=== PATIENT | male | born 1955 | race Caucasian/White ===

== ENCOUNTER 2020-02-03 15:13 | Inpatient (IN) ==
[2020-02-03] MEDS ORDERED: SODIUM CHLORIDE 0.9% 500 ML IV SCH (15:30)
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
[2020-02-03 15:57] LABS: Basophils # (auto) 0.01 K/uL (0-0.2); Basophils % (auto) 0.1 %; Eosinophils # (auto) 0.04 K/uL (0-0.5); Eosinophils % (auto) 0.4 %; Hematocrit (blood only) 44.5 % (42-52); Hemoglobin 16.1 g/dL (14.0-18.0); Immature Granulocytes # (auto) 0.01 K/uL (0.00-0.02); Immature Granulocytes % (auto) 0.1 %; Lymphocytes # (auto) 1.02 K/uL (1.2-3.4); Lymphocytes % (auto) 11.1 %; Mean Corpuscular Hemoglobin 34.8 pg (25-34); Mean Corpuscular Hgb Conc 36.2 g/dL (32-36); Mean Corpuscular Volume 96.1 fL (80-100); Mean Platelet Volume 9.7 fL (7.4-10.4); Monocytes # (auto) 0.79 K/uL (0.11-0.59); Monocytes % (auto) 8.6 %; Neutrophils # (auto) 7.28 K/uL (1.4-6.5); Neutrophils % (auto) 79.7 %; Platelet Count 110 K/uL (130-400); RDW Coefficient of Variation 12.8 % (11.5-14.5); RDW Standard Deviation 44.8 fL (36.4-46.3); Red Blood Count 4.63 M/uL (4.7-6.1); White Blood Count 9.15 K/uL (4.8-10.8)
--- NOTE | 2020-02-03 15:59 | XRay Report ---
XR chest 1V portable CLINICAL HISTORY: weakness COMPARISON STUDY: Chest radiograph October 15, 2014. FINDINGS: Lung volumes are mildly diminished. There is no pneumothorax or pleural effusion. There is no consolidation or evidence for pulmonary edema. Cardiac size is likely within normal limits, accent uated on this hypoventilatory study. IMPRESSION: No acute cardiopulmonary findings. ACT 112: Negative or not required by law. Electronically signed by: Tha Moore M.D. 02/03/2020 3:58 PM
[2020-02-03 16:18] LABS: Albumin Level 3.5 gm/dl (3.4-5.0); Creatinine Clr Calc Pharmacy 121.2 ml/min; Est GFR (Non-African American) 91.4; Magnesium 2.2 mg/dl (1.8-2.4); Potassium 3.7 mmol/L (3.5-5.1)
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
[2020-02-03 16:47] LABS: Globulin 3.4 gm/dl (2.5-4.0); Thyroid Stimulating Hormone 1.49 uIu/ml (0.300-4.500); Total Protein 6.9 gm/dl (6.4-8.2); Troponin I 0.182 ng/ml (0-0.045)
[2020-02-03 17:11] LABS: Appearance Urine Clear (Clear); Bacteria Urine Automated Negative (Negative); Bilirubin Urine Negative (Negative); Blood Urine 2+ (Negative); Cast Urine Automated 0 /lpf (0-5); Color Urine Dark Yellow; Epithelial Cell Urine Auto 0-5 /lpf (0-5); Glucose Urine UA 1+ (Negative); Ketones Urine Trace (Negative); Leukocyte Esterase Urine Negative (Negative); Nitrite Urine Negative (Negative); Protein Urine Negative (Negative); Specific Gravity Urine 1.011 (1.000-1.030); Urobilinogen Urine Negative (Negative)
[2020-02-03] MEDS ORDERED: cefTRIAXone SODIUM 2,000 MG/70 ML BAG IV STA (17:19)
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
[2020-02-03 18:57] LABS: Amphetamines+Metham, Urine Neg (Neg); Barbiturates, Urine Neg (Neg); Benzodiazepine, Urine Neg (Neg); Cocaine, Urine Neg (Neg); MDMA (Ecstacy), Urine Neg (Neg); Methadone, Urine Neg (Neg); Opiate, Urine Neg (Neg); Phencyclidine, Urine Neg (Neg)
[2020-02-03] MEDS ORDERED: SODIUM CHLORIDE 0.9% 1000ML 1,000 ML IV SCH (21:30)
[2020-02-03] MEDS ORDERED: ONDANSETRON INJ 2 MG/ML 2 ML VIAL IV PRN (21:30)
[2020-02-03] MEDS ORDERED: MAGNESIUM HYDROXIDE SUSP 30 ML UDC PO PRN (21:30)
[2020-02-03] MEDS ORDERED: POLYETHYLENE (MIRALAX) 17 GM PACK PO PRN (21:30)
[2020-02-03] MEDS ORDERED: ALUMINUM/MAGNESIUM SUSP 30 ML UDC PO PRN (21:30)
[2020-02-03] MEDS ORDERED: AMPICILLIN/SULBACTAM SOD 3,000 MG in 0.9 % SODIUM CHLORIDE 100 ML IV STA (21:33)
[2020-02-03] MEDS: CHLORHEXIDINE GLUCONATE 0.12% 480 ML MT SCH (23:46)
[2020-02-03] MEDS: LATANOPROST 0.005% OP SOLN 2.5 ML BTL OPB SCH (23:47)
[2020-02-04 04:05] LABS: Basophils # (auto) 0.02 K/uL (0-0.2); Basophils % (auto) 0.3 %; Eosinophils # (auto) 0.05 K/uL (0-0.5); Eosinophils % (auto) 0.8 %; Hematocrit (blood only) 41.5 % (42-52); Hemoglobin 14.8 g/dL (14.0-18.0); Immature Granulocytes # (auto) 0.01 K/uL (0.00-0.02); Immature Granulocytes % (auto) 0.2 %; Lymphocytes # (auto) 0.99 K/uL (1.2-3.4); Lymphocytes % (auto) 15.3 %; Mean Corpuscular Hemoglobin 34.7 pg (25-34); Mean Corpuscular Hgb Conc 35.7 g/dL (32-36); Mean Corpuscular Volume 97.4 fL (80-100); Mean Platelet Volume 9.7 fL (7.4-10.4); Monocytes # (auto) 0.57 K/uL (0.11-0.59); Monocytes % (auto) 8.8 %; Neutrophils # (auto) 4.82 K/uL (1.4-6.5); Neutrophils % (auto) 74.6 %; Platelet Count 118 K/uL (130-400); RDW Coefficient of Variation 12.9 % (11.5-14.5); RDW Standard Deviation 45.9 fL (36.4-46.3); Red Blood Count 4.26 M/uL (4.7-6.1); White Blood Count 6.46 K/uL (4.8-10.8)
[2020-02-04 04:24] LABS: Albumin Level 3.2 gm/dl (3.4-5.0); BUN Creatinine Ratio 12.6 (10-20); Calcium 8.1 mg/dl (8.5-10.1); Creatinine Clr Calc Pharmacy 147.1 ml/min; Est GFR (African American) 114.8; Potassium 3.5 mmol/L (3.5-5.1)
[2020-02-04 04:32] LABS: Bilirubin,Total 1.3 mg/dl (0.2-1); Globulin 3.2 gm/dl (2.5-4.0); Total Protein 6.4 gm/dl (6.4-8.2); Troponin I 0.075 ng/ml (0-0.045)
[2020-02-04 06:03] LABS: Estimated Average Glucose 146 mg/dl; Hemoglobin A1C 6.7 % (4.5-5.6)
--- NOTE | 2020-02-04 07:31 | Ultrasound Report ---
ULTRASOUND OF THE CAROTID ARTERIES CLINICAL HISTORY: Syncope. COMPARISON STUDY: No priors. TECHNIQUE: Real-time, grayscale, and color Doppler sonography of the carotid arteries is performed. I mages are reviewed in the transverse and longitudinal planes. FINDINGS: Blood pressures were not assessed due to the presence of IV catheters. The carotid arteries are patent bilaterally and demonstrate antegrade flow. There is no significant a therosclerotic plaque identified. Normal doppler arterial waveforms are seen throughout. Velocity alee surements are listed below. Common carotid peak systolic velocity (cm/sec): RIGHT: 64 LEFT: 66 ICA proximal peak systolic velocity (cm/sec): RIGHT: 43 LEFT: 69 ICA mid peak systolic velocity (cm/sec): RIGHT: 55 LEFT: 74 ICA distal peak systolic velocity (cm/sec): RIGHT: 48 LEFT: 74 ICA/CC peak systolic ratio: RIGHT: 0.9 LEFT: 1.1 Antegrade flow was shown in the vertebral arteries. The external carotid arteries are patent. There are prominent cervical lymph nodes seen bilaterally. The largest is on the left and measures 3. 1 x 1.0 x 1.3 cm. IMPRESSION: 1. There is no sonographic evidence of hemodynamically significant stenosis in the right or left rodriges tid arterial system. 2. Antegrade flow is shown in the vertebral arteries. 3. Prominent cervical lymph nodes are pathologically indeterminant. Clinical correlation will be esse ntial. ACT 112: Negative or not required by law. Electronically signed by: Baldomero Shannon M.D. 02/04/2020 7:29 AM
[2020-02-04] MEDS: CHLORHEXIDINE GLUCONATE 0.12% 480 ML MT SCH ×2 (09:24→20:11)
[2020-02-04] MEDS: DORZOLAMIDE/TIMOLOL 22.3/6.8MG/ML 10 ML BTL OPB SCH (09:25)
--- NOTE | 2020-02-04 12:05 | Electrocardiogram Report ---
Test Reason : Blood Pressure : / mmHG Vent. Rate : 098 BPM Atrial Rate : 098 BPM P-R Int : 150 ms QRS Dur : 070 ms QT Int : 294 ms P-R-T Axes : 024 043 089 degrees QTc Int : 375 ms Normal sinus rhythm Nonspecific T wave abnormality Abnormal ECG When compared with ECG of 20-MAY-2018 15:59, Vent. rate has increased BY 32 BPM Nonspecific T wave abnormality now evident in Anterolateral leads Confirmed by Jett Iqbal ([id number]) on 02/04/2020 12:04:24 PM Referred By: REFERRED SELF Confirmed By:Jett Iqbal
--- NOTE | 2020-02-04 12:40 | Electrocardiogram Report ---
Test Reason : Blood Pressure : / mmHG Vent. Rate : 077 BPM Atrial Rate : 077 BPM P-R Int : 160 ms QRS Dur : 076 ms QT Int : 406 ms P-R-T Axes : 045 064 078 degrees QTc Int : 459 ms Normal sinus rhythm Nonspecific ST and T wave abnormality Abnormal ECG When compared with ECG of 03-FEB-2020 15:38, (unconfirmed) Nonspecific T wave abnormality, improved in Anterolateral leads QT has lengthened Confirmed by Jett Iqbal ([id number]) on 02/04/2020 12:39:58 PM Referred By: REFERRED SELF Confirmed By:Jett Iqbal
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
[2020-02-04] MEDS: AMPICILLIN/SULBACTAM SOD 3,000 MG in 0.9 % SODIUM CHLORIDE 100 ML IV SCH ×2 (17:00→21:09)
[2020-02-04] MEDS ORDERED: LOPERAMIDE HCL 2 MG CAP PO PRN (17:54)
[2020-02-04] MEDS: LATANOPROST 0.005% OP SOLN 2.5 ML BTL OPB SCH (20:12)
[2020-02-04] MEDS: ACETAMINOPHEN 325 MG TAB PO PRN (21:13)
[2020-02-05] MEDS: AMPICILLIN/SULBACTAM SOD 3,000 MG in 0.9 % SODIUM CHLORIDE 100 ML IV SCH ×3 (03:20→15:24)
--- NOTE | 2020-02-05 07:33 | Ultrasound Report ---
ULTRASOUND RIGHT UPPER QUADRANT ABDOMEN CLINICAL HISTORY: Elevated hepatic transaminases. COMPARISON STUDY: Abdominal radiographs dated 10/15/2014. TECHNIQUE: Real-time, grayscale, and color flow sonography of the right upper quadrant of the abdomen was performed. Images are reviewed in the transverse and longitudinal planes. FINDINGS: Liver: The liver is enlarged and demonstrates heterogeneously increased echotexture consistent with h epatic steatosis. Note that this degrades acoustic penetration of the liver. There is no intrahepatic biliary ductal dilatation. The main portal vein is patent. Gallbladder: The gallbladder is normal in appearance. No gallstones are identified. There is no gallb ladder wall thickening or pericholecystic fluid. A sonographic Antoino's sign is reportedly absent. Th e common bile duct measures up to 0.4 cm in diameter. Pancreas: Visualized portions of the pancreatic head and body are normal in appearance. Right kidney: Survey images of the right kidney demonstrate normal size and echotexture. There is no hydronephrosis. Ascites: None. IMPRESSION: 1. No acute sonographic abnormality is identified in the right upper quadrant. 2. Hepatomegaly and hepatic steatosis. 3. No shadowing gallstones are identified. ACT 112: Negative or not required by law. Electronically signed by: Baldomero Shannon M.D. 02/05/2020 7:32 AM
[2020-02-05 08:43] LABS: Albumin Level 3.2 gm/dl (3.4-5.0); Bilirubin Direct 0.2 mg/dl (0-0.2); Bilirubin,Total 0.8 mg/dl (0.2-1); Total Protein 6.2 gm/dl (6.4-8.2)
[2020-02-05] MEDS: CHLORHEXIDINE GLUCONATE 0.12% 480 ML MT SCH ×2 (08:49→21:05)
[2020-02-05] MEDS: DORZOLAMIDE/TIMOLOL 22.3/6.8MG/ML 10 ML BTL OPB SCH (08:50)
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
[2020-02-05] MEDS: LACTOBACILLUS ACIDOPHILUS (FLORANEX) TAB PO SCH (21:05)
[2020-02-05] MEDS: LATANOPROST 0.005% OP SOLN 2.5 ML BTL OPB SCH (21:06)
[2020-02-05] MEDS: AMOXICILLIN/CLAVULANATE 875 MG TAB PO SCH (21:07)
--- NOTE | 2020-02-05 22:53 | Electrocardiogram Report ---
Test Reason : Blood Pressure : / mmHG Vent. Rate : 075 BPM Atrial Rate : 075 BPM P-R Int : 162 ms QRS Dur : 078 ms QT Int : 416 ms P-R-T Axes : 040 067 058 degrees QTc Int : 464 ms Normal sinus rhythm Normal ECG When compared with ECG of 04-FEB-2020 06:36, No significant change was found Confirmed by Oscar Anthony ([id number]) on 02/05/2020 10:52:53 PM Referred By: REFERRED SELF Confirmed By:Oscar Anthony
[2020-02-05] MEDS: ALBUT/IPRATROP 3MG/0.5MG NEB 3 ML VIAL NEB PRN (23:40)
[2020-02-06] MEDS: AMOXICILLIN/CLAVULANATE 875 MG TAB PO SCH ×2 (07:52→17:39)
[2020-02-06] MEDS: LACTOBACILLUS ACIDOPHILUS (FLORANEX) TAB PO SCH ×4 (07:52→21:35)
[2020-02-06] MEDS: DORZOLAMIDE/TIMOLOL 22.3/6.8MG/ML 10 ML BTL OPB SCH (07:53)
[2020-02-06] MEDS: CHLORHEXIDINE GLUCONATE 0.12% 480 ML MT SCH ×2 (07:53→21:35)
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
[2020-02-06] MEDS: LATANOPROST 0.005% OP SOLN 2.5 ML BTL OPB SCH (21:35)
--- NOTE | 2020-02-06 23:08 | XRay Report ---
LEFT KNEE 3 VIEWS CLINICAL HISTORY: Left knee pain. FINDINGS: AP, crosstable lateral, and sunrise views of the left knee are compared to study dated 05/16. The skeletal structures are osteopenic. No fracture is seen. There is moderate degenerative na rrowing at the patellofemoral articulation. Mild degenerative narrowing is seen in the medial compart ment. There are patellar enthesophytes, marginal osteophytes, degenerative beaking of the tibial spin e. There is a small joint effusion. Large calcific densities anterior to the distal femur could repre sent joint bodies or could be related to the quadriceps tendon. Soft tissue edema is present around t he knee. IMPRESSION: 1. Soft tissue swelling and small joint effusion with no acute osseous abnormality identified. 2. Osteopenia and degenerative change as above. 3. Ossific densities anterior to the distal femur could represent calcified joint bodies or could be related to the quadriceps tendon. These are new from the 05/16/2018 examination and clinical correlati on will be essential. Electronically signed by: Baldomero Shannon M.D. 02/06/2020 11:06 PM
[2020-02-07] MEDS: DORZOLAMIDE/TIMOLOL 22.3/6.8MG/ML 10 ML BTL OPB SCH (08:06)
[2020-02-07] MEDS: LACTOBACILLUS ACIDOPHILUS (FLORANEX) TAB PO SCH ×4 (08:07→21:04)
[2020-02-07] MEDS: CHLORHEXIDINE GLUCONATE 0.12% 480 ML MT SCH ×2 (08:07→21:06)
[2020-02-07] MEDS: AMOXICILLIN/CLAVULANATE 875 MG TAB PO SCH ×2 (08:07→17:13)
[2020-02-07] MEDS: ALBUT/IPRATROP 3MG/0.5MG NEB 3 ML VIAL NEB PRN (09:26)
[2020-02-07] MEDS: ACETAMINOPHEN 325 MG TAB PO PRN (15:31)
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
[2020-02-07] MEDS: LATANOPROST 0.005% OP SOLN 2.5 ML BTL OPB SCH (21:06)
[2020-02-08] MEDS: LACTOBACILLUS ACIDOPHILUS (FLORANEX) TAB PO SCH ×4 (07:50→20:15)
[2020-02-08] MEDS: AMOXICILLIN/CLAVULANATE 875 MG TAB PO SCH ×2 (07:51→16:31)
[2020-02-08] MEDS: DORZOLAMIDE/TIMOLOL 22.3/6.8MG/ML 10 ML BTL OPB SCH (07:51)
[2020-02-08] MEDS: CHLORHEXIDINE GLUCONATE 0.12% 480 ML MT SCH ×2 (07:51→20:15)
[2020-02-08 08:31] LABS: Albumin Level 3.4 gm/dl (3.4-5.0); Bilirubin,Total 0.7 mg/dl (0.2-1); Total Protein 6.8 gm/dl (6.4-8.2)
[2020-02-08 09:06] LABS: Bilirubin Direct 0.2 mg/dl (0-0.2)
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
[2020-02-08] MEDS: LATANOPROST 0.005% OP SOLN 2.5 ML BTL OPB SCH (20:16)
[2020-02-09] MEDS: AMOXICILLIN/CLAVULANATE 875 MG TAB PO SCH ×2 (07:52→16:04)
[2020-02-09] MEDS: LACTOBACILLUS ACIDOPHILUS (FLORANEX) TAB PO SCH ×4 (07:52→20:44)
[2020-02-09] MEDS: DORZOLAMIDE/TIMOLOL 22.3/6.8MG/ML 10 ML BTL OPB SCH (07:53)
[2020-02-09] MEDS: CHLORHEXIDINE GLUCONATE 0.12% 480 ML MT SCH ×2 (07:53→20:44)
[2020-02-09] MEDS: ACETAMINOPHEN 325 MG TAB PO PRN (11:48)
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
[2020-02-09] MEDS: LATANOPROST 0.005% OP SOLN 2.5 ML BTL OPB SCH (20:43)
[2020-02-10] MEDS: LACTOBACILLUS ACIDOPHILUS (FLORANEX) TAB PO SCH ×4 (08:03→20:26)
[2020-02-10] MEDS: DORZOLAMIDE/TIMOLOL 22.3/6.8MG/ML 10 ML BTL OPB SCH (08:03)
[2020-02-10] MEDS: AMOXICILLIN/CLAVULANATE 875 MG TAB PO SCH ×2 (08:03→16:50)
[2020-02-10] MEDS: CHLORHEXIDINE GLUCONATE 0.12% 480 ML MT SCH ×2 (08:04→20:28)
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
[2020-02-10] MEDS: LATANOPROST 0.005% OP SOLN 2.5 ML BTL OPB SCH (20:27)
[2020-02-11] MEDS: LACTOBACILLUS ACIDOPHILUS (FLORANEX) TAB PO SCH ×4 (07:36→20:16)
[2020-02-11] MEDS: AMOXICILLIN/CLAVULANATE 875 MG TAB PO SCH ×2 (07:36→16:41)
[2020-02-11] MEDS: DORZOLAMIDE/TIMOLOL 22.3/6.8MG/ML 10 ML BTL OPB SCH (07:37)
[2020-02-11] MEDS: CHLORHEXIDINE GLUCONATE 0.12% 480 ML MT SCH ×2 (07:37→20:16)
[2020-02-11 11:57] LABS: D Dimer 310 ug/L FEU (0-500)
--- NOTE | 2020-02-11 11:58 | XRay Report ---
XR chest 2V PA/lateral CLINICAL HISTORY: Shortness of breath COMPARISON STUDY: 02/03/2020 FINDINGS: The cardiac and mediastinal contours remain stable. There is no lobar consolidation. There is no failure. Left basilar opacities while nonspecific are likely atelectatic[there are no significa nt pleural effusions IMPRESSION: 1. No evidence of failure 2. No evidence of lobar consolidation 3. Increased markings at the left lung base while nonspecific are likely atelectatic ACT 112: Negative or not required by law. Electronically signed by: Bautista Tompkins M.D. 02/11/2020 11:57 AM
[2020-02-11 12:10] LABS: BUN Creatinine Ratio 12.9 (10-20); Calcium 9.3 mg/dl (8.5-10.1); Creatinine Clr Calc Pharmacy 116.1 ml/min; Est GFR (Non-African American) 90.6; Potassium 4.1 mmol/L (3.5-5.1)
[2020-02-11 12:13] LABS: Basophils # (auto) 0.02 K/uL (0-0.2); Basophils % (auto) 0.3 %; Eosinophils # (auto) 0.13 K/uL (0-0.5); Eosinophils % (auto) 2.2 %; Hematocrit (blood only) 46.9 % (42-52); Hemoglobin 16.4 g/dL (14.0-18.0); Immature Granulocytes # (auto) 0.02 K/uL (0.00-0.02); Immature Granulocytes % (auto) 0.3 %; Lymphocytes # (auto) 1.15 K/uL (1.2-3.4); Lymphocytes % (auto) 19.6 %; Mean Corpuscular Hemoglobin 33.8 pg (25-34); Mean Corpuscular Volume 96.7 fL (80-100); Mean Platelet Volume 8.9 fL (7.4-10.4); Monocytes # (auto) 0.45 K/uL (0.11-0.59); Monocytes % (auto) 7.7 %; Neutrophils % (auto) 69.9 %; Platelet Count 218 K/uL (130-400); RDW Coefficient of Variation 12.7 % (11.5-14.5); RDW Standard Deviation 44.7 fL (36.4-46.3); Red Blood Count 4.85 M/uL (4.7-6.1); White Blood Count 5.87 K/uL (4.8-10.8)
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
[2020-02-11] MEDS: LATANOPROST 0.005% OP SOLN 2.5 ML BTL OPB SCH (20:16)
[2020-02-12] MEDS: AMOXICILLIN/CLAVULANATE 875 MG TAB PO SCH ×2 (08:08→18:17)
[2020-02-12] MEDS: LACTOBACILLUS ACIDOPHILUS (FLORANEX) TAB PO SCH ×3 (08:08→18:16)
[2020-02-12] MEDS: CHLORHEXIDINE GLUCONATE 0.12% 480 ML MT SCH (08:09)
[2020-02-12] MEDS: DORZOLAMIDE/TIMOLOL 22.3/6.8MG/ML 10 ML BTL OPB SCH (08:09)
--- NOTE | 2020-02-12 08:43 | Electrocardiogram Report ---
Test Reason : Blood Pressure : / mmHG Vent. Rate : 072 BPM Atrial Rate : 072 BPM P-R Int : 164 ms QRS Dur : 072 ms QT Int : 402 ms P-R-T Axes : 038 052 063 degrees QTc Int : 440 ms Normal sinus rhythm Normal ECG When compared with ECG of 05-FEB-2020 07:39, No significant change Confirmed by Carlos Alberto Pereira ([id number]) on 02/12/2020 8:43:01 AM Referred By: REFERRED SELF Confirmed By:Carlos Alberto Pereira
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
== END 2020-02-12 19:19 | disposition home health service (06) | DRG 83 ==
LOC: 2N 15:13 → ED 15:13 → SUATTDRO 17:22 → 2N 20:09 → SUATTDRO 02-04 15:40

== ENCOUNTER 2021-01-22 23:55 | Inpatient (IN) ==
[2021-01-23 00:31] LABS: Basophils # (auto) 0.02 K/uL (0-0.2); Basophils % (auto) 0.2 %; Eosinophils # (auto) 0.05 K/uL (0-0.5); Eosinophils % (auto) 0.4 %; Hemoglobin 15.2 g/dL (14.0-18.0); Immature Granulocytes # (auto) 0.03 K/uL (0.00-0.02); Immature Granulocytes % (auto) 0.3 %; Lymphocytes # (auto) 0.74 K/uL (1.2-3.4); Lymphocytes % (auto) 6.3 %; Mean Corpuscular Hemoglobin 34.2 pg (25-34); Mean Corpuscular Hgb Conc 36.2 g/dL (32-36); Mean Corpuscular Volume 94.4 fL (80-100); Neutrophils # (auto) 10.17 K/uL (1.4-6.5); Neutrophils % (auto) 86.8 %; Platelet Count 196 K/uL (130-400); RDW Coefficient of Variation 12.9 % (11.5-14.5); RDW Standard Deviation 44.8 fL (36.4-46.3); Red Blood Count 4.45 M/uL (4.7-6.1); White Blood Count 11.71 K/uL (4.8-10.8)
[2021-01-23 00:40] LABS: Appearance Urine Clear (Clear); Bacteria Urine Automated Negative (Negative); Bilirubin Urine Negative (Negative); Blood Urine 2+ (Negative); Cast Urine Automated 0 /lpf (0-5); Color Urine Yellow; Glucose Urine UA Negative (Negative); Ketones Urine Trace (Negative); Leukocyte Esterase Urine Trace (Negative); Nitrite Urine Negative (Negative); Protein Urine Trace (Negative); Specific Gravity Urine 1.008 (1.000-1.030); Urobilinogen Urine Negative (Negative)
[2021-01-23 00:51] LABS: Alanine Aminotransferase 39 U/L (12-78); Albumin Level 3.2 gm/dl (3.4-5.0); Aspartate Aminotransferase 19 U/L (15-37); BUN Creatinine Ratio 15.7 (10-20); Blood Urea Nitrogen 13 mg/dl (7-18); Carbon Dioxide 27 mmol/L (21-32); Chloride 99 mmol/L (98-107); Est GFR (African American) 106.3 ml/min; Est GFR (Non-African American) 91.7 ml/min; Glucose 195 mg/dl (70-99); Potassium 3.5 mmol/L (3.5-5.1); Sodium 131 mmol/L (136-145)
[2021-01-23 01:02] LABS: Alkaline Phosphatase 59 U/L (45-117); Bilirubin,Total 1.1 mg/dl (0.2-1); Globulin 3.2 gm/dl (2.5-4.0); Total Protein 6.4 gm/dl (6.4-8.2)
[2021-01-23] MEDS ORDERED: PIPERACILLIN/TAZOBACTAM 4.5 GM/120 ML BAG IV ONE (02:45)
[2021-01-23] MEDS ORDERED: PIPERACILL/TAZOBAC CONSULT ACTIVE PRN (02:45)
[2021-01-23] MEDS ORDERED: SODIUM CHLORIDE 0.9% 500 ML IV SCH (03:00)
[2021-01-23] MEDS ORDERED: NITROGLYCERIN SL 0.4 MG/TAB TAB SL PRN (05:57)
[2021-01-23] MEDS ORDERED: CLOTRIMAZOLE 1% CR 15 GM TUBE TOP PRN (05:57)
[2021-01-23] MEDS ORDERED: POLYETHYLENE (MIRALAX) 17 GM PACK PO PRN (05:57)
[2021-01-23] MEDS ORDERED: ENOXAPARIN INJ 40 MG/0.4 ML SYR SQ SCH (05:57)
[2021-01-23] MEDS ORDERED: ACETAMINOPHEN 325 MG TAB PO PRN (05:57)
[2021-01-23] MEDS: SODIUM CHLORIDE 0.9% 1000ML 1,000 ML IV SCH ×2 (06:12→16:13)
[2021-01-23] MEDS ORDERED: GLUCOSE 10 TABS/TUBE PO PRN (06:15)
[2021-01-23] MEDS ORDERED: DEXTROSE 50% 50 ML SYRINGE IV PRN (06:15)
[2021-01-23] MEDS ORDERED: GLUCOSE 40% GEL 15 GM TUBE PO PRN (06:15)
[2021-01-23] MEDS ORDERED: CARBOHYDRATES FOR HYPOGLYCEMIA PO PRN (06:15)
[2021-01-23] MEDS ORDERED: PATIENT'S HEIGHT NEEDED SCH (06:15)
[2021-01-23] MEDS ORDERED: GLUCAGON FOR INJ 1 MG VIAL IM PRN (06:15)
[2021-01-23 07:14] LABS: D Dimer 1090 ug/L FEU (0-500)
--- NOTE | 2021-01-23 07:35 | Emergency Department Note ---
Impression & Plan Weakness, Acute hyponatremia ED Provider Note NAME: MEHNAZ MONTES AGE: 65 SEX: M ARRIVES VIA: Ambulance INFORMANT: Patient ED PROVIDER(S): Carine Chambers DO CHIEF COMPLAINT: " Not feeling good" PLAN: Disposition: Admitted to the [facility] Condition: Stable MEDICAL DECISION MAKING: This is a 65-year-old male patient who presents to the emergency department stating that he does not feel good. He had significant increased sleep throughout the day today. He is concerned that he has begun to develop an infection. They had changed his Hamilton catheter yesterday and urinalysis today appears to be infected. Patient's white blood cell count has elevated since January 19 and his sodium has decreased. Patient has possible impending sepsis. I discussed the case with the [facility] and they will evaluate for further management. Triage Nursing notes reviewed and agree with them. Prior medical records reviewed Vital Signs: reviewed and remarkable for fever. Differential diagnosis: Sepsis, pneumonia, UTI, COVID-19, hyponatremia ER treatment provided: IV normal saline IV [facility] interpreted by me: ECG: Normal sinus rhythm at a rate of [address] segment elevation or signs of ischemia. There is no ectopy. Cardiac Monitoring: Normal sinus rhythm at 98 Laboratory studies: See below Imaging studies: As per my interpretation Chest x-ray: No obvious pulmonary infiltrates or effusions. HPI: 65/M arrives for evaluation of increased sleep and shortness of breath. Patient states that he noticed some increased sleepiness and shortness of breath. The patient had his Hamilton catheter changed out yesterday. He states that he just did not feel well tonight. He had become increasingly weak. ROS: See above HPI for pertinent positives & negatives. A total of 10 systems reviewed and were otherwise negative. PAST MEDICAL HISTORY:See Below PAST SURGICAL HISTORY:See Below FAMILY HISTORY:See Below SOCIAL HISTORY:See Below HOME MEDICATIONS:See list ALLERGIES:None VITALS:See Below PHYSICAL EXAMINATION: HEENT: Head - normocephalic and atraumatic. Pupils are equal, round, and reactive to light. Extraocular eye muscles are intact, and sclera are anicteric. Nose - moist nasal mucosa without discharge. Mouth -dry buccal mucosa. Oropharynx is nonerythematous and there is no tonsillar exudate or edema noted. Neck: Supple; no JVD or cervical lymphadenopathy Heart: Regular rate and rhythm. There is a normal S1 and S2 with no murmurs, clicks, or gallops appreciated. Lungs: Clear to auscultation bilaterally with no wheezes, rales, or rhonchi. Abdomen: Soft, completely nontender, nondistended, with good bowel sounds. There are no palpable pulsatile masses or hepatosplenomegaly. There is no guarding, rigidity, or rebound noted. Extremities: No evidence of cyanosis, clubbing, or edema. There are easily palpable peripheral pulses. Skin: Hot and dry with good turgor and no rashes. ED COURSE: Times/Reassessments: 100: The patient was evaluated in room C 11. A complete hi story and physical was performed. A septic protocol was performed. An order was placed for continuous cardiac monitoring. The patient was in a normal sinus rhythm at a rate of 98. A twelve-lead EKG was obtained. Urine specimen was obtained from his Hamilton catheter. Previous urine cultures were reviewed and the patient was started on IV Zosyn and IV normal saline solution. I discussed the case with the [facility] and they will evaluate for further management. Carine Chambers DO Past Med/Surg History Medical History (Updated 01/24/21 @ 13:37 by Carine Chambers DO) Glaucoma Surgical History History of arthroscopy of left knee Family History Unknown No pertinent family history Social History Smoking Status: Never smoker Tobacco Type: Cigarettes Second Hand Exposure: No; Hx Alcohol Use: No Hx Substance Use: No Preferred Language: Dutch Communication Ability: Effective Key Punch Teacher Required: No Beliefs That Will Affect Care: None marital status: / Current Living Situation: Family Current Living Situation Comment: Son current occupational status: retired Feels Safe at Home: Yes Safety Concerns: Feels Safe At This Time Assistive Devices: Walker Allergies Allergies Allergy/AdvReac Type Severity Reaction Status Date / Time No Known Allergies Allergy Verified 01/21/21 09:12 Home Meds Home Medications Medication Instructions Recorded Confirmed dorzolamide-timolol 1 drp OPB QAM 02/03/20 01/23/21 latanoprost 1 drp OPB HS 02/03/20 01/23/21 clotrimazole 1 appln TOP BID PRN 01/23/21 01/23/21 Previous Rx's Medication Instructions Recorded metformin 500 mg PO DAILY #30 tab 01/09/21 tamsulosin [Flomax] 0.4 mg PO HS #14 cap 01/09/21 amoxicillin-pot clavulanate 1 tab PO BID #14 tab 01/19/21 [Augmentin] Results & Data (ED) Vital Signs Vital Signs - 24 hr 01/22/21 23:52 01/23/21 00:08 01/23/21 00:30 Temperature 39.1 C H Temperature Source Oral Pulse Rate 99 H 95 H Pulse Rate [Apical] Pulse Rate from SpO2 Sensor Respiratory Rate 20 17 18 Respiratory Effort / Characteristics Non-Labored Spontaneous Respiratory Depth Normal Blood Pressure 149/87 H 106/78 Blood Pressure [Right Arm] 145/89 H Blood Pressure Mean 107 87 Blood Pressure Mean [Right Arm] 107 Blood Pressure Position Sitting Pulse Oximetry 97 96 Oxygen Delivery Method Room Air Room Air Sepsis Recent Fever Within 48 Hours Yes Sepsis New/Unexplained Change in Mental Status No Sepsis Action Taken by Nursing No Action Required 01/23/21 01:04 01/23/21 01:58 01/23/21 02:00 Temperature 37.6 C H Temperature Source Oral Pulse Rate 97 H 98 H Pulse Rate [Apical] 97 H Pulse Rate from SpO2 Sensor 97 H 98 H Respiratory Rate 31 H 32 H Respiratory Effort / Characteristics Respiratory Depth Blood Pressure 140/84 131/85 Blood Pressure [Right Arm] 140/84 Blood Pressure Mean 102 100 Blood Pressure Mean [Right Arm] 102 Blood Pressure Position Pulse Oximetry 95 95 Oxygen Delivery Method Room Air Sepsis Recent Fever Within 48 Hours Sepsis New/Unexplained Change in Mental Status Sepsis Action Taken by Nursing 01/23/21 02:30 01/23/21 03:00 01/23/21 03:30 Temperature Temperature Source Pulse Rate 96 H 97 H 95 H Pulse Rate [Apical] Pulse Rate from SpO2 Sensor 95 H 94 H Respiratory Rate 28 H 28 H 25 H Respiratory Effort / Characteristics Respiratory Depth Blood Pressure 123/81 125/73 115/73 Blood Pressure [Right Arm] Blood Pressure Mean 95 90 87 Blood Pressure Mean [Right Arm] Blood Pressure Position Pulse Oximetry 96 94 Oxygen Delivery Method Sepsis Recent Fever Within 48 Hours Sepsis New/Unexplained Change in Mental Status Sepsis Action Taken by Nursing Laboratory Data Result diagrams: 01/24/21 05:31 01/24/21 05:31 Lab Results 01/23/21 01/23/21 01/23/21 Range/Units 00:06 00:06 00:15 WBC 11.71 H (4.8-10.8) K/uL RBC 4.45 L (4.7-6.1) M/uL Hgb 15.2 (14.0-18.0) g/dL Hct 42.0 (42-52) % MCV 94.4 (80-100) fL MCH 34.2 H (25-34) pg MCHC 36.2 H (32-36) g/dL RDW Std Deviation 44.8 (36.4-46.3) fL RDW Coeff of Wendi 12.9 (11.5-14.5) % Plt Count 196 (130-400) K/uL MPV 9.0 (7.4-10.4) fL Immature Gran % (Auto) 0.3 % Neut % (Auto) 86.8 % Lymph % (Auto) 6.3 % [place] % (Auto) 6.0 % Eos % (Auto) 0.4 % Baso % (Auto) 0.2 % Neut # (Auto) 10.17 H (1.4-6.5) K/uL Lymph # (Auto) 0.74 L (1.2-3.4) K/uL [place] # (Auto) 0.70 H (0.11-0.59) K/uL Eos # (Auto) 0.05 (0-0.5) K/uL Baso # (Auto) 0.02 (0-0.2) K/uL Immature Gran # (Auto) 0.03 H (0.00-0.02) K/uL Sodium 131 L (136-145) mmol/L Potassium 3.5 (3.5-5.1) mmol/L Chloride 99 (98-107) mmol/L Carbon Dioxide 27 (21-32) mmol/L Anion Gap 5.0 (3-11) BUN 13 (7-18) mg/dl Creatinine 0.83 (0.6-1.4) mg/dl Est Cr Clr Drug Dosing Not Reportable Est GFR ( Amer) 106.3 ml/min Est GFR (Non-Af Amer) 91.7 ml/min BUN/Creatinine Ratio 15.7 (10-20) Glucose 195 H (70-99) mg/dl Lactate (0.4-2.0) mmol/L Calcium 9.0 (8.5-10.1) mg/dl Total Bilirubin 1.1 H (0.2-1) mg/dl AST 19 (15-37) U/L ALT 39 (12-78) U/L Alkaline Phosphatase 59 (45-117) U/L Total Protein 6.4 (6.4-8.2) gm/dl Albumin 3.2 L (3.4-5.0) gm/dl Globulin 3.2 (2.5-4.0) gm/dl Albumin/Globulin Ratio 1.0 (0.9-2) TSH 1.240 (0.300-4.500) uIu/ml Urine Color Yellow Urine Appearance Clear (Clear) Urine pH 6.0 (4.5-7.5) Ur Specific [place] 1.008 (1.000-1.030) Urine Protein Trace H (Negative) Urine Glucose (UA) Negative (Negative) Urine Ketones Trace H (Negative) Urine Blood 2+ H (Negative) Urine Nitrite Negative (Negative) Urine Bilirubin Negative (Negative) Urine Urobilinogen Negative (Negative) Ur Leukocyte Esterase Trace H (Negative) Urine WBC (Auto) 1-5 (0-5) /hpf Urine RBC (Auto) 5-10 H (0-4) /hpf U Hyaline Cast (Auto) 0 (0-5) /lpf U Epithel Cells (Auto) 5-10 H (0-5) /lpf Urine Bacteria (Auto) Negative (Negative) COVID-19 Eval Order SARS-CoV-2 (PCR) (Negative) 01/23/21 01/23/21 01/23/21 Range/Units 01:34 03:15 03:15 WBC (4.8-10.8) K/uL RBC (4.7-6.1) M/uL Hgb (14.0-18.0) g/dL Hct (42-52) % MCV (80-100) fL MCH (25-34) pg MCHC (32-36) g/dL RDW Std Deviation (36.4-46.3) fL RDW Coeff of Wendi (11.5-14.5) % Plt Count (130-400) K/uL MPV (7.4-10.4) fL Immature Gran % (Auto) % Neut % (Auto) % Lymph % (Auto) % [place] % (Auto) % Eos % (Auto) % Baso % (Auto) % Neut # (Auto) (1.4-6.5) K/uL Lymph # (Auto) (1.2-3.4) K/uL [place] # (Auto) (0.11-0.59) K/uL Eos # (Auto) (0-0.5) K/uL Baso # (Auto) (0-0.2) K/uL Immature Gran # (Auto) (0.00-0.02) K/uL Sodium (136-145) mmol/L Potassium (3.5-5.1) mmol/L Chloride (98-107) mmol/L Carbon Dioxide (21-32) mmol/L Anion Gap (3-11) BUN (7-18) mg/dl Creatinine (0.6-1.4) mg/dl Est Cr Clr Drug Dosing Est GFR ( Amer) ml/min Est GFR (Non-Af Amer) ml/min BUN/Creatinine Ratio (10-20) Glucose (70-99) mg/dl Lactate 1.1 (0.4-2.0) mmol/L Calcium (8.5-10.1) mg/dl Total Bilirubin (0.2-1) mg/dl AST (15-37) U/L ALT (12-78) U/L Alkaline Phosphatase (45-117) U/L Total Protein (6.4-8.2) gm/dl Albumin (3.4-5.0) gm/dl Globulin (2.5-4.0) gm/dl Albumin/Globulin Ratio (0.9-2) TSH (0.300-4.500) uIu/ml Urine Color Urine Appearance (Clear) Urine pH (4.5-7.5) Ur Specific [place] (1.000-1.030) Urine Protein (Negative) Urine Glucose (UA) (Negative) Urine Ketones (Negative) Urine Blood (Negative) Urine Nitrite (Negative) Urine Bilirubin (Negative) Urine Urobilinogen (Negative) Ur Leukocyte Esterase (Negative) Urine WBC (Auto) (0-5) /hpf Urine RBC (Auto) (0-4) /hpf U Hyaline Cast (Auto) (0-5) /lpf U Epithel Cells (Auto) (0-5) /lpf Urine Bacteria (Auto) (Negative) COVID-19 Eval Order Covid19 at [facility] SARS-CoV-2 (PCR) NEGATIVE (Negative) Administered Medications Acetaminophen (Acetaminophen 325 Mg Tab) 650 mg PO Q4H PRN PRN Reason: Pain or Fever Stop: 02/22/21 05:56 Last Admin: 01/23/21 16:11 Dose: 650 mg Documented by: [id number] Dorzolamide/Timolol (Dorzolamide/Timolol 22.3/6.8mg/Ml 10 Ml Btl) 1 drops OPB QAM [facility] Stop: 02/22/21 08:59 Last Admin: 01/24/21 08:21 Dose: 1 drops Documented by: [id number] Admin: 01/23/21 11:01 Dose: 1 drops Documented by: [id number] Enoxaparin Sodium (Enoxaparin Inj 40 Mg/0.4 Ml Syr) 40 mg SQ Q24H SUZIE Stop: 02/22/21 08:59 Last Admin: 01/24/21 08:21 Dose: Not Given Documented by: [id number] Admin: 01/23/21 08:29 Dose: 40 mg Documented by: [id number] Sodium Chloride (Nss 1000ml) 1,000 mls @ 100 mls/hr IV .Q10H SUZIE Stop: 02/22/21 05:56 Last Admin: 01/24/21 02:27 Dose: 100 mls/hr Documented by: [id number] Infusion: 01/24/21 02:13 Dose: 100 mls/hr Documented by: [id number] Admin: 01/23/21 16:13 Dose: 100 mls/hr Documented by: [id number] Infusion: 01/23/21 16:12 Dose: 100 mls/hr Documented by: [id number] Admin: 01/23/21 06:12 Dose: 100 mls/hr Documented by: [id number] Piperacillin Sod/Tazobactam (Sod 3.375 gm/ Dextrose) 115 mls @ 28.75 mls/hr IV Q8H SUZIE; Protocol Stop: 02/02/21 07:59 Last Infusion: 01/24/21 12:29 Dose: 0 mls/hr Documented by: [id number] Admin: 01/24/21 08:23 Dose: 28.8 mls/hr Documented by: [id number] Infusion: 01/24/21 05:11 Dose: 0 mls/hr Documented by: [id number] Admin: 01/24/21 00:35 Dose: 28.8 mls/hr Documented by: [id number] Infusion: 01/23/21 20:52 Dose: 0 mls/hr Documented by: [id number] Admin: 01/23/21 16:13 Dose: 28.8 mls/hr Documented by: [id number] Infusion: 01/23/21 12:49 Dose: 0 mls/hr Documented by: [id number] Admin: 01/23/21 08:21 Dose: 28.8 mls/hr Documented by: [id number] Insulin Aspart (Insulin Aspart 100 Units/Ml 3 Ml Pen) 0 units SC ACHS SUZIE Stop: 02/22/21 07:29 Last Admin: 01/24/21 12:27 Dose: 4 units Documented by: [id number] Cosigned by: [id number] Admin: 01/24/21 08:19 Dose: 6 units Documented by: [id number] Cosigned by: [id number] Admin: 01/23/21 20:55 Dose: 4 units Documented by: [id number] Cosigned by: [id number] Admin: 01/23/21 17:38 Dose: 7 units Documented by: [id number] Cosigned by: [id number] Admin: 01/23/21 12:54 Dose: 6 units Documented by: [id number] Cosigned by: [id number] Admin: 01/23/21 08:39 Dose: 4 units Documented by: [id number] Cosigned by: [id number] Latanoprost (Latanoprost 0.005% Op Soln 2.5 Ml Btl) 1 drops OPB HS [facility] Stop: 02/22/21 20:59 Last Admin: 01/23/21 20:50 Dose: 1 drops Documented by: [id number] Tamsulosin HCl (Tamsulosin Hcl 0.4 Mg Cap) 0.4 mg PO HS SUZIE Stop: 02/22/21 20:59 Last Admin: 01/23/21 20:52 Dose: 0.4 mg Documented by: [id number] Discontinued Medications Enoxaparin Sodium (Enoxaparin Inj 40 Mg/0.4 Ml Syr) 40 mg SQ Q24H [facility] Stop: 02/22/21 05:56 Last Admin: 01/23/21 06:19 Dose: Not Given Documented by: [id number] Piperacillin Sod/Tazobactam Sod (Zosyn) 4.5 gm in 120 mls @ 240 mls/hr IV NOW ONE Stop: 01/23/21 03:14 Last Infusion: 01/23/21 05:02 Dose: 0 mls/hr Documented by: [id number] Admin: 01/23/21 03:14 Dose: 240 mls/hr Documented by: [id number] Sodium Chloride (Nss) 500 mls @ 125 mls/hr IV .Q4H [facility] Stop: 02/22/21 02:59 Last Infusion: 01/23/21 05:59 Dose: 0 mls/hr Documented by: [id number] Admin: 01/23/21 03:14 Dose: 125 mls/hr Documented by: [id number] Ioversol (Optiray 320 125ml) 118 ml IV ONCE ONE Stop: 01/23/21 08:18 Last Admin: 01/23/21 08:17 Dose: 118 ml Documented by: [id number] Imaging Data Radiologist's Impression: Chest X-Ray 01/23/21 00:19 XR chest 1V portable HISTORY: 65 years-old Male weakness acute weakness COMPARISON: 02/11/2020 TECHNIQUE: Portable AP view of the chest FINDINGS: Cardiomediastinal and hilar silhouettes are within normal limits. No pneumothorax, pleural effusion, airspace consolidation or overt pulmonary edema. Bones of the chest appear grossly intact. IMPRESSION: No acute process. ACT 112: Negative or not required by law. The above report was generated using voice recognition software. It may contain grammatical, syntax or spelling errors. Electronically signed by: Codey Westfall M.D. 01/23/2021 7:32 AM Discharge Plan Visit Data Chief Complaint: Urinary Symptoms Stated Complaint: WEAK/PAINFUL URINATION ED Provider: Carine Chambers Discharge Problem: Weakness, Acute hyponatremia Patient Disposition: Admitted As Inpatient Discharge Instructions Interventions: ED Discharge Assessment Last Done: 01/23/21 05:22
--- NOTE | 2021-01-23 07:41 | Electrocardiogram Report ---
Test Reason : Blood Pressure : / mmHG Vent. Rate : 094 BPM Atrial Rate : 094 BPM P-R Int : 140 ms QRS Dur : 084 ms QT Int : 350 ms P-R-T Axes : 027 043 045 degrees QTc Int : 437 ms Poor data quality, interpretation may be adversely affected Normal sinus rhythm Normal ECG When compared with ECG of 11-FEB-2020 18:31, Criteria for Septal infarct are no longer Present Confirmed by Sulaiman Lackey ([id number]) on 01/23/2021 7:40:43 AM Referred By: REFERRED SELF Confirmed By:Casey Lackey
[2021-01-23] MEDS ORDERED: OPTIRAY 320 125ml IV ONE (08:17)
[2021-01-23] MEDS: PIPERACILLIN/TAZOBACTAM 3.375 GM in DEXTROSE 5% 100 ML IV SCH ×2 (08:21→16:13)
[2021-01-23] MEDS: ENOXAPARIN INJ 40 MG/0.4 ML SYR SQ SCH (08:29)
[2021-01-23] MEDS: INSULIN ASPART 100 UNITS/ML 3 ML PEN SC SCH ×4 (08:39→20:55)
--- NOTE | 2021-01-23 10:01 | CT Scan Report ---
CT angio chest PE protocol CT DOSE: 719.31 mGy.cm HISTORY: 65 years-old Male with PE. Acute atypical chest pain TECHNIQUE: Multiple CTA images of the chest were obtained after the intravenous administration of 118 ml Optiray. Coronal and sagittal MIPS were obtained from the axial data set and were submitted for review. All measurements were obtained according to NASCET criteria. A dose lowering technique was u tilized adhering to the principles of ALARA. COMPARISON: Chest radiograph 01/23/2021 FINDINGS: CTA: The heart is normal in size. No pericardial effusion. Mild coronary artery calcifications. No thoraci c aortic aneurysm or dissection. Suboptimal opacification of the pulmonary arterial tree secondary to contrast bolus timing. The segmental and subsegmental branches are suboptimally evaluated. No pulmon jac emboli are identified. CT CHEST: Unremarkable thyroid. Pathologically enlarged bilateral axillary chain lymph nodes measure up to 1.3 cm on the left and 1.7 cm on the right. A prominent subcarinal lymph node measures within the upper l imits of normal at 10 mm. There is no pneumothorax, pleural effusion, airspace consolidation or overt pulmonary edema. No suspi cious pulmonary nodules or masses. The central airways are patent. Hepatosplenomegaly with hepatic st eatosis. Unremarkable soft tissues. Degenerative changes of the shoulders and spine. There is no acut e fracture. IMPRESSION: 1. No pulmonary emboli. 2. No pleural effusion or airspace consolidation. 3. Nonspecific pathologically enlarged bilateral axillary chain lymph nodes. Follow-up recommended. 4. Hepatosplenomegaly with hepatic steatosis. ACT 112: Negative or not required by law. The above report was generated using voice recognition software. It may contain grammatical, syntax o r spelling errors. Electronically signed by: Codey Westfall M.D. 01/23/2021 9:59 AM
[2021-01-23] MEDS: DORZOLAMIDE/TIMOLOL 22.3/6.8MG/ML 10 ML BTL OPB SCH (11:01)
--- NOTE | 2021-01-23 11:09 | History and Physical Report ---
DATE OF ADMISSION: 01/23/2021. CHIEF COMPLAINT: Shortness of breath. HISTORY OF PRESENT ILLNESS: This is a 65-year-old male with past medical history significant for recently diagnosed diabetes, obesity, hepatic steatosis, osteoarthritis of both knees, glaucoma in both eyes, history of thrombocytopenia, history of dental abscess, history of financial difficulties. His son lives with him. He comes because of feeling shortness of breath at home. The patient was recently in the ER initially on 01/09/2021 with urinary retention. He was placed on Hamilton catheter; when the Hamilton catheter was placed, 2 liters of fluid drained out and also glucose was elevated at 396 and he was started on metformin. At that time, his creatinine was 1.5 and discharged to out patient follow up. He was again in the hospital ER on 01/19/2021; at that time, there was a concern of swelling noted in the end of the penis. labs were checked and they were okay, thought to be balanoposthitis and was prescribed Augmentin and _ clotrimazole cream and discharged. Then, he followed with urology on 01/21/2021 and failed a voiding trial. At that time, cultures drawn in the ER showed pansensitive E. coli and Enterococcus, and he was advised to complete the Augmentin course and follow up in 2 weeks with a plan to check PSA. Again, today he comes because today whole day he was sleeping at home, drowsy and also feeling short of breath. Here in the ER, he had a temperature spike of 39.1, somewhat tachycardic and tachypneic. White count was 11.7. Lactate was okay at 1.1. Urinalysis with trace leukocyte esterase positive. Chest x-ray was okay. The patient denies any chest pain, no cough, no headache, no blurred vision, no earache, no runny nose, no sore throat, no nausea, no abdominal pain. Has some discomfort because of the Hamilton catheter. Somewhat constipated. Appetite is okay. He says he ambulates with limping of the left leg because of his knee surgeries in the past. Currently, resting comfortably. ALLERGIES: No known drug allergies. PAST MEDICAL HISTORY: As mentioned above. PAST SURGICAL HISTORY: Left knee ligament surgery. MEDICATIONS: Currently, the patient is on Augmentin 1 tablet p.o. b.i.d., clotrimazole topically b.i.d. p.r.n., dorzolamide/timolol 1 drop ophthalmic a.m., latanoprost 1 drop ophthalmic at bedtime, metformin 500 mg p.o. daily, Flomax 0.4 mg p.o. at bedtime. FAMILY HISTORY: No family history on file. SOCIAL HISTORY: Quit smoking in 1970s, currently not drinking, no drug use. REVIEW OF SYSTEMS: As per HPI. Rest of the review of systems is negative. PHYSICAL EXAMINATION: GENERAL: The patient is obese, not in acute distress. VITAL SIGNS: Temperature 39.1, pulse 98, respiratory rate in the 20s, blood pressure 140/92, and oxygen 96% on room air. HEENT: Pupils equal. Oral mucosa moist. NECK: No JVD, no neck masses. HEART: S1 and S2 heard. Regular rate and rhythm. No murmur, no gallop. RESPIRATORY SYSTEM: Normal AP diameter. No accessory muscle use. No wheezing, no crackles. ABDOMEN: Soft, bowel sounds present, nontender, no distention. CENTRAL NERVOUS SYSTEM: Cranial nerves II-XII grossly intact, nonfocal. EXTREMITIES: Trace pedal edema, no erythema seen. LABORATORY DATA: WBC 11.7, hemoglobin 15.2, hematocrit 42, platelets 196. Sodium 131, potassium 3.5, chloride 99, bicarbonate 27, BUN 13, creatinine 0.8, serum glucose 195. Lactate 1.1, calcium 9, total bilirubin 1.1, AST 19, ALT 39, alkaline phosphatase 59. TSH 1.2. Urinalysis: Trace leukocyte esterase, trace ketones, +2 blood. SARS-CoV-2 PCR pending. IMAGING: Chest x-ray: No acute findings seen. EKG: Normal sinus rhythm, rate of 94, no acute ST changes seen. ASSESSMENT AND PLAN: This is a 65-year-old male, presents with feeling sleepy at home and short of breath. 1. Possible sepsis with tachycardia, temperature spike, tachypnea, elevated white count, possible urinary source. Tachypnea could be from sepsis. Chest x- ray is okay. We will check D-dimer; if D-dimer is elevated, we will do a CT of the chest to rule out pulmonary embolism. Recent cultures growing pansensitive Escherichia coli and Enterococcus. He was started on IV Zosyn, which will be continued. Follow the cultures. Continue IV fluids, follow the response. Monitor in the med-telemetry. 2. Recent diagnosis of diabetes, on metformin. Place him on insulin, follow hemoglobin A1c level, follow the blood sugars. 3. Glaucoma. Continue his home eye drops. 4. History of urinary retention, on Hamilton, on Flomax. Recently failed voiding trial at urology clinic. Advised to follow up in a couple of weeks. 5. Obesity, needs counseling. 6. Deep venous thrombosis prophylaxis, heparin subcutaneously. DISPOSITION: Monitor in the med-tele. Level 1 full code. PT, OT prior to discharge. Social service to help with discharge planning. Job ID: [id number] [facility]
[2021-01-23] MEDS: LATANOPROST 0.005% OP SOLN 2.5 ML BTL OPB SCH (20:50)
[2021-01-23] MEDS: TAMSULOSIN HCL 0.4 MG CAP PO SCH (20:52)
[2021-01-24] MEDS: PIPERACILLIN/TAZOBACTAM 3.375 GM in DEXTROSE 5% 100 ML IV SCH ×3 (00:35→17:07)
[2021-01-24] MEDS: SODIUM CHLORIDE 0.9% 1000ML 1,000 ML IV SCH ×3 (02:27→17:09)
[2021-01-24 05:57] LABS: Basophils # (auto) 0.01 K/uL (0-0.2); Basophils % (auto) 0.2 %; Eosinophils # (auto) 0.03 K/uL (0-0.5); Eosinophils % (auto) 0.7 %; Hematocrit (blood only) 40.5 % (42-52); Hemoglobin 14.3 g/dL (14.0-18.0); Immature Granulocytes # (auto) 0.02 K/uL (0.00-0.02); Immature Granulocytes % (auto) 0.5 %; Lymphocytes # (auto) 0.52 K/uL (1.2-3.4); Mean Corpuscular Hgb Conc 35.3 g/dL (32-36); Mean Corpuscular Volume 93.5 fL (80-100); Mean Platelet Volume 8.9 fL (7.4-10.4); Monocytes # (auto) 0.22 K/uL (0.11-0.59); Monocytes % (auto) 5.1 %; Neutrophils # (auto) 3.52 K/uL (1.4-6.5); Neutrophils % (auto) 81.5 %; Platelet Count 157 K/uL (130-400); RDW Coefficient of Variation 13.1 % (11.5-14.5); RDW Standard Deviation 44.9 fL (36.4-46.3); Red Blood Count 4.33 M/uL (4.7-6.1); White Blood Count 4.32 K/uL (4.8-10.8)
[2021-01-24 06:17] LABS: BUN Creatinine Ratio 13.1 (10-20); Calcium 8.6 mg/dl (8.5-10.1); Creatinine Clr Calc Pharmacy 125.9 ml/min; Est GFR (African American) 109.6 ml/min; Est GFR (Non-African American) 94.6 ml/min; Magnesium 2.2 mg/dl (1.8-2.4); Potassium 3.7 mmol/L (3.5-5.1)
[2021-01-24 07:23] LABS: Estimated Average Glucose 220 mg/dl; Hemoglobin A1C 9.3 % (4.5-5.6)
[2021-01-24] MEDS: INSULIN ASPART 100 UNITS/ML 3 ML PEN SC SCH ×4 (08:19→21:16)
[2021-01-24] MEDS: DORZOLAMIDE/TIMOLOL 22.3/6.8MG/ML 10 ML BTL OPB SCH (08:21)
[2021-01-24] MEDS: ENOXAPARIN INJ 40 MG/0.4 ML SYR SQ SCH (08:21)
--- NOTE | 2021-01-24 14:07 | Hospitalist Progress Note ---
Date of Service January 24, 2021 Assessment & Plan (1) UTI (urinary tract infection): Presented with urinary symptoms with history of retention under care of urologist Possible sepsis on presentation with tachycardia, increased temperature and tachypnea and elevated white count Has been getting intravenous Zosyn Urine and blood cultures are pending Has been catheterized-may need to have urology evaluation while in the hospital Clinically feeling better CTA was negative for pulmonary embolism (2) Weakness: Presented with weakness likely due to multifactorial causes including uncontrolled diabetes, infection and hyponatremia Recently diagnosed diabetes on oral medications (3) Acute hyponatremia: Presented with hyponatremia with a sodium level of 131 Has been improving in the hospital (4) Diabetes: Diagnosed recently as an outpatient and has been on Metformin and other oral agents Has been on sliding scale insulin coverage in the hospital Hemoglobin A1c more than 9 Diabetes teaching Sugar has been getting better (5) Hypertension: Blood pressure is controlled DVT prophylaxis Subcu Lovenox CODE STATUS Full Admission and Anticipated Discharge Date Admission Date: January 23, 2021 Subjective 01/24/2021 The patient was seen and examined in medical telemetry unit He was admitted with generalized weakness and possible UTI which seems to be recurrent Has been feeling a lot better and is worried about his diabetes and the urinary condition Denies any fever and/or chills Review of Systems Review of Systems: All systems reviewed and are unremarkable except as noted below Physical Exam Physical Exam: Lying in bed comfortably Constitutional: well developed and well nourished; not ill appearing Eyes: PERRL, conjunctivae normal, anicteric sclerae ENMT: external ear and nose normal, oropharynx normal Neck: trachea midline, no thyromegaly Respiratory: no respiratory distress Auscultation: lungs clear to auscultation bilaterally Cardiovascular: Rate/Rhythm: regular rate and regular rhythm Heart Sounds: no murmur Extremities: no edema Gastrointestinal (Abdomen): Inspection/Auscultation: normal bowel sounds; abdomen not distended Percussion/Palpation: abdomen soft; abdomen nontender Musculoskeletal: No acute arthritis in any joint Neurologic: Alert, awake and oriented x3. No focal sensory or motor deficit appreciated Lymphatic: no cervical or axillary lymphadenopathy Results & Data Results & Data ([facility]) Vital Signs (Past 12 Hours) Vital Signs Temp Pulse Pulse Resp BP Pulse Ox 01/24/21 11:21 36.7 C 81 16 133/90 95 01/24/21 07:55 79 07/12/21 07:37 36.9 C 81 16 151/96 H 95 01/24/21 02:28 37.1 C 82 18 132/89 97 Laboratory Results Short CBC 01/24/21 Range/Units 05:31 WBC 4.32 L (4.8-10.8) K/uL Hgb 14.3 (14.0-18.0) g/dL Hct 40.5 L (42-52) % Plt Count 157 (130-400) K/uL BMP 01/24/21 05:31 Sodium 134 L Potassium 3.7 Chloride 102 Carbon Dioxide 30 BUN 10 Creatinine 0.77 Glucose 218 H Calcium 8.6 Medications Administered Current Inpatient Medications Acetaminophen (Acetaminophen 325 Mg Tab) 650 mg PO Q4H PRN PRN Reason: Pain or Fever Stop: 02/22/21 05:56 Last Admin: 01/23/21 16:11 Dose: 650 mg Documented by: Clotrimazole (Clotrimazole 1% Cr 15 Gm Tube) 1 appln TOP BID PRN PRN Reason: Skin Irritation Stop: 02/22/21 05:56 Dextrose (Dextrose 50% 50 Ml Syringe) 25 - 50 ml IV UD PRN; Protocol PRN Reason: Hypoglycemia Protocol Stop: 02/22/21 06:14 Dorzolamide/Timolol (Dorzolamide/Timolol 22.3/6.8mg/Ml 10 Ml Btl) 1 drops OPB QAM SUZIE Stop: 02/22/21 08:59 Last Admin: 01/24/21 08:21 Dose: 1 drops Documented by: Enoxaparin Sodium (Enoxaparin Inj 40 Mg/0.4 Ml Syr) 40 mg SQ Q24H [facility] Stop: 02/22/21 08:59 Last Admin: 01/24/21 08:21 Dose: Not Given Documented by: Glucagon (Glucagon For Inj 1 Mg Vial) 1 mg IM UD PRN; Protocol PRN Reason: Hypoglycemia Protocol Stop: 02/22/21 06:14 Glucose (Glucose 40% Gel 15 Gm Tube) 15 - 30 gm PO UD PRN; Protocol PRN Reason: Hypoglycemia Protocol Stop: 02/22/21 06:14 Glucose (Glucose 10 Tabs/Tube) 4 - 8 tabs PO UD PRN; Protocol PRN Reason: Hypoglycemia Protocol Stop: 02/22/21 06:14 Sodium Chloride (Nss 1000ml) 1,000 mls @ 100 mls/hr IV .Q10H SU[facility] Stop: 02/22/21 05:56 Last Admin: 01/24/21 02:27 Dose: 100 mls/hr Documented by: Piperacillin Sod/Tazobactam (Sod 3.375 gm/ Dextrose) 115 mls @ 28.75 mls/hr IV Q8H [facility]; Protocol Stop: 02/02/21 07:59 Last Infusion: 01/24/21 12:29 Dose: Infused Documented by: Insulin Aspart (Insulin Aspart 100 Units/Ml 3 Ml Pen) 0 units SC ACHS [facility] Stop: 02/22/21 07:29 Last Admin: 01/24/21 12:27 Dose: 4 units Documented by: Latanoprost (Latanoprost 0.005% Op Soln 2.5 Ml Btl) 1 drops OPB HS [facility] Stop: 02/22/21 20:59 Last Admin: 01/23/21 20:50 Dose: 1 drops Documented by: Miscellaneous (Carbohydrates For Hypoglycemia ) 15 - 30 gm PO UD PRN PRN Reason: Hypoglycemia Treatment Stop: 02/22/21 06:14 Miscellaneous Information (Piperacill/Tazobac Consult Active) 1 ea N/A UD PRN PRN Reason: Consult Stop: 02/22/21 02:44 Nitroglycerin (Nitroglycerin Sl 0.4 Mg/Tab Tab) 0.4 mg SL UD PRN PRN Reason: Chest Pain Stop: 02/22/21 05:56 Polyethylene Glycol (Polyethylene (Miralax) 17 Gm Pack) 17 gm PO DAILY PRN PRN Reason: Constipation Stop: 02/22/21 05:56 Tamsulosin HCl (Tamsulosin Hcl 0.4 Mg Cap) 0.4 mg PO HS [facility] Stop: 02/22/21 20:59 Last Admin: 01/23/21 20:52 Dose: 0.4 mg Documented by:
[2021-01-24] MEDS: TAMSULOSIN HCL 0.4 MG CAP PO SCH (21:17)
[2021-01-24] MEDS: LATANOPROST 0.005% OP SOLN 2.5 ML BTL OPB SCH (21:17)
[2021-01-25] MEDS: PIPERACILLIN/TAZOBACTAM 3.375 GM in DEXTROSE 5% 100 ML IV SCH ×2 (00:50→08:21)
[2021-01-25] MEDS: SODIUM CHLORIDE 0.9% 1000ML 1,000 ML IV SCH ×2 (06:02→09:52)
[2021-01-25] MEDS: ENOXAPARIN INJ 40 MG/0.4 ML SYR SQ SCH (08:02)
[2021-01-25] MEDS: DORZOLAMIDE/TIMOLOL 22.3/6.8MG/ML 10 ML BTL OPB SCH (08:02)
--- NOTE | 2021-01-25 08:10 | XRay Report ---
XR chest 1V portable HISTORY: Shortness of breath. congestion? COMPARISON: Chest 01/23/2021. FINDINGS: There are low lung volumes. No pneumothorax. No pleural effusions. Left basilar linear dens ities consistent with subsegmental atelectasis. The heart is normal in size. No evidence for pulmonar y edema. IMPRESSION: Low lung volumes with a few small left basilar linear densities. This favors subsegmental atelectasis . ACT 112: Negative or not required by law. Electronically signed by: Froilan Diaz M.D. 01/25/2021 8:08 AM
[2021-01-25] MEDS: INSULIN ASPART 100 UNITS/ML 3 ML PEN SC SCH ×4 (08:23→21:24)
[2021-01-25] MEDS: AMOXICILLIN/CLAVULANATE 875 MG TAB PO SCH ×2 (12:05→17:16)
--- NOTE | 2021-01-25 16:38 | Hospitalist Progress Note ---
Date of Service January 25, 2021 Assessment & Plan (1) UTI (urinary tract infection): Presented with urinary symptoms with history of retention under care of urologist Possible sepsis on presentation with tachycardia, increased temperature and tachypnea and elevated white count CTA was negative for pulmonary embolism Has been getting intravenous Zosyn Urine and blood cultures are negative Has been catheterized-may need to have urology evaluation while in the hospital Given recent positive urine culture and recurrent catheterization will continue antibiotic to complete a total of 10 days course Augmentin has been started to finish the course of antibiotic He will need outpatient follow-up with a urologist in about 1 to 2 weeks following discharge with the catheter (2) Weakness: Presented with weakness likely due to multifactorial causes including uncontrolled diabetes, infection and hyponatremia Recently diagnosed diabetes on oral medications Has been improving-we will get PT and OT evaluation (3) Acute hyponatremia: Presented with hyponatremia with a sodium level of 131 Has been improving in the hospital (4) Diabetes: Diagnosed recently as an outpatient and has been on Metformin and other oral agents Has been on sliding scale insulin coverage in the hospital Hemoglobin A1c more than 9 Diabetes teaching Has been on Metformin as an outpatient-we will need to continue Metformin with increasing dose with a maintenance dose of 1000 mg twice daily within a few weeks as per the diabetes teaching nurse He will be put on a small dose of Lantus for better glucose control in the hospital He will not be discharged on insulin (5) Hypertension: Blood pressure is controlled DVT prophylaxis Subcu Lovenox CODE STATUS Full Admission and Anticipated Discharge Date Admission Date: January 23, 2021 Subjective 01/24/2021 The patient was seen and examined in medical telemetry unit He was admitted with generalized weakness and possible UTI which seems to be recurrent Has been feeling a lot better and is worried about his diabetes and the urinary condition Denies any fever and/or chills 01/25/2021 The patient was seen and examined in medical telemetry unit He has been feeling reasonably good but does not feel like going home today He denies any symptoms except weakness Review of Systems Review of Systems: All systems reviewed and are unremarkable except as noted below Physical Exam Physical Exam: Lying in bed comfortably Constitutional: well developed and well nourished; not ill appearing Eyes: PERRL, conjunctivae normal, anicteric sclerae ENMT: external ear and nose normal, oropharynx normal Neck: trachea midline, no thyromegaly Respiratory: no respiratory distress Auscultation: lungs clear to auscultation bilaterally Cardiovascular: Rate/Rhythm: regular rate and regular rhythm Heart Sounds: no murmur Extremities: no edema Gastrointestinal (Abdomen): Inspection/Auscultation: normal bowel sounds; abdomen not distended Percussion/Palpation: abdomen soft; abdomen nontender Musculoskeletal: No acute arthritis in any joint Neurologic: Alert, awake and oriented x3. Generally weak but no focal sensory and motor deficit appreciated Lymphatic: no cervical or axillary lymphadenopathy Results & Data Results & Data ([facility]) Vital Signs (Past 12 Hours) Vital Signs Temp Pulse Pulse Resp BP Pulse Ox 01/25/21 14:20 83 01/25/21 11:54 36.2 C L 76 16 117/66 95 01/25/21 07:35 36.6 C 71 16 141/91 H 96 01/25/21 06:20 74 20 96 Medications Administered Current Inpatient Medications Acetaminophen (Acetaminophen 325 Mg Tab) 650 mg PO Q4H PRN PRN Reason: Pain or Fever Stop: 02/22/21 05:56 Last Admin: 01/23/21 16:11 Dose: 650 mg Documented by: Amoxicillin/Clavulanate Potassium (Amoxicillin/Clavulanate 875 Mg Tab) 1 tab PO BIDM SUZIE Stop: 02/02/21 07:59 Last Admin: 01/25/21 12:05 Dose: 1 tab Documented by: Clotrimazole (Clotrimazole 1% Cr 15 Gm Tube) 1 appln TOP BID PRN PRN Reason: Skin Irritation Stop: 02/22/21 05:56 Dextrose (Dextrose 50% 50 Ml Syringe) 25 - 50 ml IV UD PRN; Protocol PRN Reason: Hypoglycemia Protocol Stop: 02/22/21 06:14 Dorzolamide/Timolol (Dorzolamide/Timolol 22.3/6.8mg/Ml 10 Ml Btl) 1 drops OPB QAM SUZIE Stop: 02/22/21 08:59 Last Admin: 01/25/21 08:02 Dose: 1 drops Documented by: Enoxaparin Sodium (Enoxaparin Inj 40 Mg/0.4 Ml Syr) 40 mg SQ Q24H [facility] Stop: 02/22/21 08:59 Last Admin: 01/25/21 08:02 Dose: 40 mg Documented by: Glucagon (Glucagon For Inj 1 Mg Vial) 1 mg IM UD PRN; Protocol PRN Reason: Hypoglycemia Protocol Stop: 02/22/21 06:14 Glucose (Glucose 40% Gel 15 Gm Tube) 15 - 30 gm PO UD PRN; Protocol PRN Reason: Hypoglycemia Protocol Stop: 02/22/21 06:14 Glucose (Glucose 10 Tabs/Tube) 4 - 8 tabs PO UD PRN; Protocol PRN Reason: Hypoglycemia Protocol Stop: 02/22/21 06:14 Insulin Aspart (Insulin Aspart 100 Units/Ml 3 Ml Pen) 0 units SC ACHS [facility] Stop: 02/22/21 07:29 Last Admin: 01/25/21 12:22 Dose: 9 units Documented by: Insulin Glargine (Insulin Glargine Solostar 100 Units/Ml 3 Ml Pen) 10 units SC DAILYBB [facility] Stop: 02/25/21 06:29 Latanoprost (Latanoprost 0.005% Op Soln 2.5 Ml Btl) 1 drops OPB HS [facility] Stop: 02/22/21 20:59 Last Admin: 01/24/21 21:17 Dose: 1 drops Documented by: Miscellaneous (Carbohydrates For Hypoglycemia ) 15 - 30 gm PO UD PRN PRN Reason: Hypoglycemia Treatment Stop: 02/22/21 06:14 Nitroglycerin (Nitroglycerin Sl 0.4 Mg/Tab Tab) 0.4 mg SL UD PRN PRN Reason: Chest Pain Stop: 02/22/21 05:56 Polyethylene Glycol (Polyethylene (Miralax) 17 Gm Pack) 17 gm PO DAILY PRN PRN Reason: Constipation Stop: 02/22/21 05:56 Tamsulosin HCl (Tamsulosin Hcl 0.4 Mg Cap) 0.4 mg PO HS [facility] Stop: 02/22/21 20:59 Last Admin: 01/24/21 21:17 Dose: 0.4 mg Documented by:
[2021-01-25] MEDS: TAMSULOSIN HCL 0.4 MG CAP PO SCH (20:54)
[2021-01-25] MEDS: LATANOPROST 0.005% OP SOLN 2.5 ML BTL OPB SCH (20:54)
[2021-01-26] MEDS ORDERED: INSULIN GLARGINE SOLOSTAR 100 UNITS/ML 3 ML PEN SC SCH (06:30)
[2021-01-26 07:15] LABS: Basophils # (auto) 0.01 K/uL (0-0.2); Basophils % (auto) 0.2 %; Eosinophils # (auto) 0.12 K/uL (0-0.5); Eosinophils % (auto) 2.9 %; Hemoglobin 14.3 g/dL (14.0-18.0); Lymphocytes % (auto) 21.6 %; Mean Corpuscular Hemoglobin 33.3 pg (25-34); Mean Corpuscular Hgb Conc 34.9 g/dL (32-36); Mean Corpuscular Volume 95.6 fL (80-100); Monocytes # (auto) 0.42 K/uL (0.11-0.59); Monocytes % (auto) 10.1 %; Neutrophils # (auto) 2.72 K/uL (1.4-6.5); Neutrophils % (auto) 65.2 %; Platelet Count 198 K/uL (130-400); RDW Coefficient of Variation 13.1 % (11.5-14.5); RDW Standard Deviation 45.7 fL (36.4-46.3); Red Blood Count 4.29 M/uL (4.7-6.1); White Blood Count 4.17 K/uL (4.8-10.8)
[2021-01-26 07:42] LABS: BUN Creatinine Ratio 17.3 (10-20); Calcium 8.9 mg/dl (8.5-10.1); Creatinine Clr Calc Pharmacy 153.3 ml/min; Est GFR (Non-African American) 102.7 ml/min
[2021-01-26] MEDS: INSULIN ASPART 100 UNITS/ML 3 ML PEN SC SCH ×2 (08:48→12:52)
[2021-01-26] MEDS: AMOXICILLIN/CLAVULANATE 875 MG TAB PO SCH (08:53)
[2021-01-26] MEDS: DORZOLAMIDE/TIMOLOL 22.3/6.8MG/ML 10 ML BTL OPB SCH (08:53)
[2021-01-26] MEDS: ENOXAPARIN INJ 40 MG/0.4 ML SYR SQ SCH (08:53)
--- NOTE | 2021-01-26 13:17 | Discharge Summary ---
Date of Service January 26, 2021 Admission HPI Per Admitting Provider This is a 65-year-old male with past medical history significant for recently diagnosed diabetes, obesity, hepatic steatosis, osteoarthritis of both knees, glaucoma in both eyes, history of thrombocytopenia, history of dental abscess, history of financial difficulties. His son lives with him. He comes because of feeling shortness of breath at home. The patient was recently in the ER initially on 01/09/2021 with urinary retention. He was placed on catheter; when the catheter was placed, 2 liters of fluid drained out and also glucose was elevated at 396 and he was started on metformin. At that time, his creatinine was 1.5 and discharged to out patient follow up. He was again in the hospital ER on 01/19/2021; at that time, there was a concern of swelling noted in the end of the penis. labs were checked and they were okay, thought to be balanoposthitis and was prescribed Augmentin and _ clotrimazole cream and discharged. Then, he followed with urology on 01/21/2021 and failed a voiding trial. At that time, cultures drawn in the ER showed pansensitive E. coli and Enterococcus, and he was advised to complete the Augmentin course and follow up in 2 weeks with a plan to check PSA. Again, today he comes because today whole day he was sleeping at home, drowsy and also feeling short of breath. Here in the ER, he had a temperature spike of 39.1, somewhat tachycardic and tachypneic. White count was 11.7. Lactate was okay at 1.1. Urinalysis with trace leukocyte esterase positive. Chest x-ray was okay. The patient denies any chest pain, no cough, no headache, no blurred vision, no earache, no runny nose, no sore throat, no nausea, no abdominal pain. Has some discomfort because of the catheter. Somewhat constipated. Appetite is okay. He says he ambulates with limping of the left leg because of his knee surgeries in the past. Currently, resting comfortably. Admission Exam Per Admitting Provider PHYSICAL EXAMINATION: GENERAL: The patient is obese, not in acute distress. VITAL SIGNS: Temperature 39.1, pulse 98, respiratory rate in the 20s, blood pressure 140/92, and oxygen 96% on room air. HEENT: Pupils equal. Oral mucosa moist. NECK: No JVD, no neck masses. HEART: S1 and S2 heard. Regular rate and rhythm. No murmur, no gallop. RESPIRATORY SYSTEM: Normal AP diameter. No accessory muscle use. No wheezing, no crackles. ABDOMEN: Soft, bowel sounds present, nontender, no distention. CENTRAL NERVOUS SYSTEM: Cranial nerves II-XII grossly intact, nonfocal. EXTREMITIES: Trace pedal edema, no erythema seen. Principal Diagnosis (1) UTI (urinary tract infection): (2) Weakness: (3) Acute hyponatremia: (4) Diabetes: (5) Hypertension: Discharge Exam ROS-No Headache, No Visual Changes, No Nausea, No Vomiting, No Fever, No Chills, No Neck Pain or Stiffness, No Chest Pain, No Palpitations, No SOB, No BAXTER, No Cough, No Sputum, No Wheezing, No Abdominal Pain, No Diarrhea, No Hematemesis, No Hemoptysis, No Unexpected Weight Loss, No Flank pain, No Melena, No Hemato chezia, No Frequency, No Urgency, No Burning, No Hematuria, No Rashes, No Diaphoresis. Appetite is Normal Physical Exam Gen-AAO x 3, NAD, Afebrile, +, poor dentition Head-NCAT, EOMI, PERRLA, Anicteric Sclera, No Posterior Pharyngeal Erythema Neck-Supple, No JVD, No Thyromegaly, No Masses, No LAD, No Bruits Lungs-Clear to Auscultation Bilaterally, No Rales, No Rhonchi, No Wheezing, No Crepitus Chest-No S4, +S1, +S2, No S3, No Murmurs, No Rubs, No Gallops, No Ectopy Abdomen-Soft, Bowel Sounds Present, Non Tender, Non Distended, No Hepatomegaly, No Splenomegaly, No Palpable Masses, No Rebound, No Rigidity, No Guarding Musculoskeletal-Full Range of Motion Bilaterally, No CVAT Extremities-No Cyanosis, No Clubbing, No Edema Nuero-Cranial Nerves II-XII grossly intact, Motor WNL, DTRs WNL, Strength WNL, Non Focal Psych-Normal Mood Discharge Data Allergies Allergy/AdvReac Type Severity Reaction Status Date / Time No Known Allergies Allergy Verified 01/21/21 09:12 Consultations 01/23/21 02:47 ED Decision to Admit Stat Ordered Studies 01/23/21 07:50 CT angio chest PE protocol Urgent Current Diagnoses Type 2 diabetes mellitus without complications (01/23/21) Hypo-osmolality and hyponatremia (01/23/21) Essential (primary) hypertension (01/23/21) Urinary tract infection, site not specified (01/23/21) Weakness (01/23/21) Allergies No Known Allergies Allergy (Verified 01/21/21 09:12) Height/Weight/Isolation Height 6 ft 1 in Weight 115.1 kg Chemistry 01/26/21 06:11 Sodium 139 Potassium 4.0 Chloride 105 Carbon Dioxide 29 Anion Gap 5.0 BUN 11 Creatinine 0.63 Glucose 208 H Microbiology 01/23/21 00:15 Urine,Indwelling Cath Urine Culture - Final No growth - less than 1,000 colonies/mL. 01/23/21 01:34 Blood Aerobic Blood Culture - Preliminary No growth in Aerobic bottle after 48 hours. 01/23/21 01:34 Blood Anaerobic Blood Culture - Preliminary No growth in Anaerobic bottle after 48 hours. 01/23/21 00:05 Blood Aerobic Blood Culture - Preliminary No growth in Aerobic bottle after 48 hours. 01/23/21 00:05 Blood Anaerobic Blood Culture - Preliminary No growth in Anaerobic bottle after 48 hours. Diabetes Follow up Diabetes Follow-up Needed for HgbA1c >9% Hospital Course (1) UTI (urinary tract infection): Presented with urinary symptoms with history of retention under care of urologist Possible sepsis on presentation with tachycardia, increased temperature and tachypnea and elevated white count CTA was negative for pulmonary embolism Has been getting intravenous Zosyn Urine and blood cultures are negative Given recent positive urine culture and recurrent catheterization will continue antibiotic to complete a total of 10 day course Augmentin has been started to finish the course of antibiotic He will need outpatient follow-up with a urologist in about 1 to 2 weeks following discharge with the catheter (2) Weakness: Presented with weakness likely due to multifactorial causes including uncontrolled diabetes, infection and hyponatremia Recently diagnosed diabetes on oral medications Has been improving (3) Acute hyponatremia: Presented with hyponatremia with a sodium level of 131 Has been improving in the hospital (4) Diabetes: Diagnosed recently as an outpatient and has been on Metformin and other oral agents Has been on sliding scale insulin coverage in the hospital Hemoglobin A1c more than 9 Diabetes teaching Has been on Metformin as an outpatient-we will need to continue Metformin with increasing dose with a maintenance dose of 1000 mg twice daily within a few weeks as per the diabetes teaching nurse He will be put on a small dose of Lantus for better glucose control in the hospital He will not be discharged on insulin F/U outpatient (5) Hypertension: Blood pressure is controlled DVT prophylaxis Subcu Lovenox CODE STATUS Full DC home today c Total Time Total Time Spent Total Time Spent (In Minutes): 45 mins Total Time Includes: Examination of the Patient, Discharge Planning, Medication Reconciliation, Communication With Other Providers and Other Discharge Plan Discharge Items Patient Disposition: Home - Self-Care Reason For Visit: SOB / URINARY SYMPTOMS Discharge Diagnosis: (1) UTI (urinary tract infection): (2) Weakness: (3) Acute hyponatremia: (4) Diabetes: (5) Hypertension: Condition on Discharge: Good Activity: Resume your previous activity Lifting: Gradually increase as tolerated Bathing: No limitations Sexual Activity: When tolerated Exercise/Sports: Gradually increase as tolerated Driving/Machine Use: No limitations Weightbearing: Full weightbearing Non-emergency contact: Primary Care Provider and Urologist Call non-emergency contact if: you have any medication questions Follow-up/Referrals: Casper Miramontes MD [Primary Care Provider] - (Date & Time 01/31/2021 11:00 AM Provider Shayna Jones MD Department General Internal Medicine [facility] ) Diet: Carb Consistent or DM2 and Heart Healthy Addtl Attending Provider Instructions: Go home with your Catheter and follow up in [facility] clinic with Urology- They want to remove your catheter in the office Pending Studies at Discharge: No Stand-Alone Forms: My [facility] Going My Way, Smoking Cessation Medications and DC Order Prescriptions: New amoxicillin-pot clavulanate [Augmentin] 875-125 mg Tablet 1 tab PO BIDM Qty: 14 RF: 0 Continued latanoprost 0.005 % drops 1 drp OPB HS RF: 0 dorzolamide-timolol 22.3-6.8 mg/mL drops 1 drp OPB QAM RF: 0 metformin 500 mg tablet 500 mg PO DAILY Qty: 30 RF: 0 tamsulosin [Flomax] 0.4 mg capsule 0.4 mg PO HS Qty: 14 RF: 0 clotrimazole 1 % cream 1 appln TOP BID PRN (Reason: Skin Irritation) RF: 0 Discontinued amoxicillin-pot clavulanate [Augmentin] 875-125 mg tablet 1 tab PO BID Qty: 14 RF: 0 Discharge Orders: Discharge Order (Routine); Ordered 01/26/21 Ordered By: Jasiel Ruffin/Other Patient Handouts: A1C, Managing Type 2 Diabetes, Exercise to Manage Your Blood Sugar, Diabetes: Meal Planning, Type 2 Diabetes Admission Data Admit Date/Time: 01/23/21 03:33 Attending Provider: Jasiel Bass Admit Provider: Mark Johnson Primary Care Provider: Casper Miramontes Other Providers: Mark Johnson
== END 2021-01-26 16:22 | disposition home or self-care (01) | DRG 698 ==
LOC: ED 23:55 → 2N 01-23 03:33 → SUATTDRO 01-23 03:33 → 2N 01-23 05:22

== ENCOUNTER 2022-05-29 19:03 | Inpatient (IN) ==
--- NOTE | 2022-05-29 19:17 | Emergency Department Note ---
Impression & Plan Weakness, Hamilton catheter in place, Complicated urinary tract infection ED Provider Note NAME: MEHNAZ MONTES AGE: 66 SEX: M : 1955 ARRIVES VIA: Ambulance INFORMANT: Patient, ED PROVIDER(S): Rl Robins MD Chief Complaint: Weakness HPI: Patient presents due to concern for weakness which is been ongoing for the last several days. The patient states that he has had difficulty with getting up and out of his recliner. The patient has been sitting and soaking with urine. The patient states sometimes he is unable to get to the bathroom to defecate. Reportedly the building in which she lives has a PFA out against the son but the patient states that his son lives with him. Patient denies any chest pain shortness of breath nausea or vomiting. No diarrhea. Patient does have a chronic indwelling Hamilton in place. Patient states that it was last changed a month ago. ROS: See HPI for pertinent positives and negatives. A total of 10 systems were reviewed and otherwise negative. Past medical history: See below Surgical history: See below Social history: See below Physical Exam: GENERAL: NAD, wearing a mask, non-toxic. Wearing glasses and a mask. Disheveled EYE EXAM: Normal conjunctiva. PERRL, no anisocoria and EOM's grossly intact w/o pain. NECK: Supple, no nuchal rigidity, no adenopathy, non-tender. No signs of meningismus. FROM of the neck with good chin to chest and neck extension. No stridor. LUNGS: Clear to auscultation. Normal chest wall mechanics. HEART: NSR, no MRG. ABDOMEN: Abdomen soft, non-tender, normo-active bowel sounds, no masses, no rebound or guarding. BACK: No CVA TTP. SKIN: No rashes and no bruising. : Slightly excoriated scrotum but nontender, bilateral testes descended, circumcised and erosion of the Hamilton catheter through the ventral portion of the meatus. UPPER EXTREMITIES: Upper extremities are grossly normal. LOWER EXTREMITIES: Significant right lower extremity edema that stops at the mid mojica. Neurovascular intact distally. NEURO EXAM: A&O x3, cranial nerves II-XII grossly intact, normal speech, moves all 4 extremities. Differential diagnoses: Infection, dehydration, metabolic abnormality, hypo/hyperglycemia, electrolyte disturbance, anemia, hypoxia, cardiac sources, intracerebral event, toxicologic, neurologic, as well as other pathologies. Course: Patient was seen and evaluated the bedside. Full history physical exam was performed. EKG interpreted by me Normal sinus rhythm, rate of 87 normal intervals normal axis no ST elevations or T WI. No significant change for comparison October 02, 2021. Imaging Studies: See Below Cardiac monitoring: An order was placed for continuous cardiac monitoring. The monitor shows a rate of 82 with sinus rhythm. MDM: Patient presents due to concern for weakness and inability to get up and out of bed. The patient was treated for UTI. Antibiotics were ordered. Given the patient's inability to care for self do think the patient does require inpatient treatment and care. I did speak the on-call hospitalist Dr. Johnson and the patient was admitted to the medicine service. Also of note the patient did have significant decreased edema in the right lower extremity at the mid mojica but the patient did present with an Jacoby wrap in place. This likely had been on for significant amount of time and had not been removed. Patient is neurovascular tact distally. Past Med/Surg History Medical History BPH (benign prostatic hyperplasia) Diabetes mellitus, type 2 NIDDM Hamilton catheter in place Glaucoma UTI (urinary tract infection) Surgical History H/O sinus surgery to repair a fracture sinus History of arthroscopy of left knee History of colonoscopy History of esophagogastroduodenoscopy (EGD) S/P TURP Family History Unknown No pertinent family history Social History Smoking Status: Former smoker Tobacco Type: Cigarettes Second Hand Exposure: Yes; Hx Alcohol Use: No Hx Substance Use: No Preferred Language: Bolivian Communication Ability: Effective Stone Layer Required: No Beliefs That Will Affect Care: None marital status: / Current Living Situation: Family Current Living Situation Comment: Son current occupational status: retired Other Information That Helps Us Care for You: No Feels Safe at Home: Yes Assistive Devices: Scooter/Electric Scooter and Walker Allergies Allergies Allergy/AdvReac Type Severity Reaction Status Date / Time amoxicillin [From Augmentin] AdvReac Intermediate Diarrhea Verified 01/11/22 0 9:34 clavulanic acid AdvReac Intermediate Diarrhea Verified 01/11/22 09:34 [From Augmentin] Home Meds Home Medications Medication Instructions Recorded Confirmed dorzolamide 22.3 mg-timolol 6.8 1 drp OPB QAM 02/03/20 05/29/22 mg/mL eye drops latanoprost 0.005 % eye drops 1 drp OPB HS 02/03/20 05/29/22 (Xalatan) brimonidine 0.2 % eye drops 1 drp OPB QAM 05/06/21 05/29/22 atorvastatin 40 mg tablet 40 mg PO QAM 10/02/21 05/29/22 finasteride 5 mg tablet 5 mg PO QAM 10/02/21 05/29/22 metformin 500 mg tablet,extended 1,500 mg PO QAM 05/29/22 05/29/22 release 24 hr Previous Rx's Medication Instructions Recorded tamsulosin 0.4 mg capsule 0.4 mg PO HS #30 caps 10/31/21 oxybutynin chloride 5 mg tablet 5 mg PO BID PRN bladder spasms #30 05/08/22 tabs Results & Data (ED) Home Medications Current Medication List: was personally reviewed by me Laboratory Data Attestation: I reviewed the patient's lab results. Result diagrams: 05/31/22 03:43 05/31/22 03:43 Lab Results 05/29/22 05/29/22 05/29/22 Range/Units 19:35 19:35 19:35 WBC 10.42 (4.8-10.8) K/ul RBC 4.70 (4.63-6.08) M/uL Hgb 15.3 (14.0-18.0) g/dl Hct 42.6 (40.1-51.0) % MCV 90.6 (80.0-100.0) fL MCH 32.6 (25.0-34.0) pg MCHC 35.9 (32.0-36.0) g/dL RDW Std Deviation 42.5 (36.4-46.3) fL RDW Coeff of Wendi 12.7 (11.5-14.5) % Plt Count 153 (130-400) K/uL MPV 8.8 L (9.4-12.4) fL Immature Gran % (Auto) 0.3 % Neut % (Auto) 85.9 % Lymph % (Auto) 6.3 % Blackford % (Auto) 7.2 % Eos % (Auto) 0.0 % Baso % (Auto) 0.3 % Neut # (Auto) 8.95 H (1.4-6.5) K/uL Lymph # (Auto) 0.66 L (1.2-3.4) K/uL Blackford # (Auto) 0.75 (0.24-0.82) K/uL Eos # (Auto) 0.00 (0-0.50) K/uL Baso # (Auto) 0.03 (0-0.2) K/uL Immature Gran # (Auto) 0.03 H (0.00-0.02) K/uL Sodium 132 L (136-145) mmol/L Potassium 3.4 L (3.5-5.1) mmol/L Chloride 99 (98-107) mmol/L Carbon Dioxide 24 (21-32) mmol/L Anion Gap 9 (3-11) BUN 15 (6-23) mg/dl Creatinine 0.94 (0.6-1.4) mg/dl Est Cr Clr Drug Dosing Not Reportable Est GFR ( Amer) 96.8 ml/min Est GFR (Non-Af Amer) 83.6 ml/min BUN/Creatinine Ratio 16.0 (10-20) Glucose 156 H (70-99(Fasting)) mg/dl Calcium 10.0 (8.5-10.1) mg/dl Magnesium 1.7 (1.7-2.4) mg/dl Total Bilirubin 2.4 H (0.2-1.0) mg/dl AST 15 (13-39) U/L ALT 19 (7-52) U/L Alkaline Phosphatase 54 (34-104) U/L Total Protein 6.8 (6.0-8.3) gm/dl Albumin 4.3 (3.4-5.0) gm/dl Globulin 2.5 (2.5-4.0) gm/dl Albumin/Globulin Ratio 1.7 (0.9-2) TSH 1.110 (0.300-4.500) uIu/ml Urine Color Urine Appearance (Clear) Urine pH (4.5-7.5) Ur Specific [place] (1.000-1.030) Urine Protein (Negative) Urine Glucose (UA) (Negative) Urine Ketones (Negative) Urine Blood (Negative) Urine Nitrite (Negative) Urine Bilirubin (Negative) Urine Urobilinogen (Negative) Ur Leukocyte Esterase (Negative) Urine WBC (Auto) (0-5) /hpf Urine RBC (Auto) (0-4) /hpf U Hyaline Cast (Auto) (0-5) /lpf U Epithel Cells (Auto) (0-5) /lpf Urine Bacteria (Auto) (Negative) SARS-CoV-2, RNA, NAAT (NEGATIVE) 05/29/22 05/29/22 Range/Units 19:55 20:00 WBC (4.8-10.8) K/ul RBC (4.63-6.08) M/uL Hgb (14.0-18.0) g/dl Hct (40.1-51.0) % MCV (80.0-100.0) fL MCH (25.0-34.0) pg MCHC (32.0-36.0) g/dL RDW Std Deviation (36.4-46.3) fL RDW Coeff of Wendi (11.5-14.5) % Plt Count (130-400) K/uL MPV (9.4-12.4) fL Immature Gran % (Auto) % Neut % (Auto) % Lymph % (Auto) % [place] % (Auto) % Eos % (Auto) % Baso % (Auto) % Neut # (Auto) (1.4-6.5) K/uL Lymph # (Auto) (1.2-3.4) K/uL [place] # (Auto) (0.24-0.82) K/uL Eos # (Auto) (0-0.50) K/uL Baso # (Auto) (0-0.2) K/uL Immature Gran # (Auto) (0.00-0.02) K/uL Sodium (136-145) mmol/L Potassium (3.5-5.1) mmol/L Chloride (98-107) mmol/L Carbon Dioxide (21-32) mmol/L Anion Gap (3-11) BUN (6-23) mg/dl Creatinine (0.6-1.4) mg/dl Est Cr Clr Drug Dosing Est GFR ( Amer) ml/min Est GFR (Non-Af Amer) ml/min BUN/Creatinine Ratio (10-20) Glucose (70-99(Fasting)) mg/dl Calcium (8.5-10.1) mg/dl Magnesium (1.7-2.4) mg/dl Total Bilirubin (0.2-1.0) mg/dl AST (13-39) U/L ALT (7-52) U/L Alkaline Phosphatase (34-104) U/L Total Protein (6.0-8.3) gm/dl Albumin (3.4-5.0) gm/dl Globulin (2.5-4.0) gm/dl Albumin/Globulin Ratio (0.9-2) TSH (0.300-4.500) uIu/ml Urine Color Anderson Urine Appearance Turbid A (Clear) Urine pH 6.0 (4.5-7.5) Ur Specific [place] 1.014 (1.000-1.030) Urine Protein 1+ H (Negative) Urine Glucose (UA) Trace H (Negative) Urine Ketones Negative (Negative) Urine Blood 2+ H (Negative) Urine Nitrite Positive A (Negative) Urine Bilirubin Negative (Negative) Urine Urobilinogen Negative (Negative) Ur Leukocyte Esterase 3+ H (Negative) Urine WBC (Auto) >30 H (0-5) /hpf Urine RBC (Auto) 5-10 H (0-4) /hpf U Hyaline Cast (Auto) 1-5 (0-5) /lpf U Epithel Cells (Auto) 5-10 H (0-5) /lpf Urine Bacteria (Auto) 4+ H (Negative) SARS-CoV-2, RNA, NAAT NEGATIVE (NEGATIVE) Administered Medications Atorvastatin Calcium (Atorvastatin 40 Mg Tab) [facility] [place]: 06/29/22 08:59 Last Admin: 05/31/22 08:37 Dose: 40 mg Documented By: Admin: 05/30/22 09:17 Dose: 40 mg Documented By: MERISSA Co-signed By: GREGORY Brimonidine Tartrate (Brimonidine Tartrate 0.2% 5ml) 1 drops [facility] [place]: 06/29/22 08:59 Last Admin: 05/31/22 08:37 Dose: 1 drops Documented By: Admin: 05/30/22 09:18 Dose: 1 drops Documented By: MERISSA Co-signed By: GREGORY Dorzolamide/Timolol (Dorzolamide/Timolol 22.3/6.8mg/Ml 10 Ml Btl) 1 drops OPB QAM SUZIE Stop: 06/29/22 08:59 Last Admin: 05/31/22 08:37 Dose: 1 drops Documented By: Admin: 05/30/22 09:21 Dose: 1 drops Documented By: MERISSA Co-signed By: GREGORY Finasteride (Finasteride 5 Mg Tab) 5 mg PO QAM SUZIE Stop: 06/29/22 08:59 Last Admin: 05/31/22 08:37 Dose: 5 mg Documented By: Admin: 05/30/22 09:18 Dose: 5 mg Documented By: MERISSA Co-signed By: GREGORY Sodium Chloride (Nss 1000ml) 1,000 mls @ 100 mls/hr IV .Q10H SUZIE Stop: 06/29/22 00:06 Last Admin: 05/31/22 16:25 Dose: 100 mls/hr Documented By: Infusion: 05/31/22 16:18 Dose: 0 mls/hr Documented By: Admin: 05/31/22 05:47 Dose: 100 mls/hr Documented By: Infusion: 05/31/22 05:47 Dose: 100 mls/hr Documented By: Admin: 05/30/22 20:03 Dose: 100 mls/hr Documented By: Infusion: 05/30/22 20:03 Dose: 100 mls/hr Documented By: Admin: 05/30/22 10:15 Dose: 100 mls/hr Documented By: Infusion: 05/30/22 10:15 Dose: 100 mls/hr Documented By: Admin: 05/30/22 01:01 Dose: 100 mls/hr Documented By: QG Doxycycline Hyclate 100 mg/ (Dextrose) 110 mls @ 50 mls/hr IV Q12H SUZIE Stop: 06/06/22 00:06 Last Infusion: 05/31/22 16:25 Dose: 0 mls/hr Documented By: Admin: 05/31/22 12:48 Dose: 50 mls/hr Documented By: Infusion: 05/31/22 03:14 Dose: 0 mls/hr Documented By: Admin: 05/31/22 00:37 Dose: 50 mls/hr Documented By: Infusion: 05/30/22 15:09 Dose: 0 mls/hr Documented By: Admin: 05/30/22 11:57 Dose: 50 mls/hr Documented By: Infusion: 05/30/22 03:24 Dose: 0 mls/hr Documented By: Admin: 05/30/22 01:06 Dose: 50 mls/hr Documented By: QG Heparin Sodium/Dextrose (Heparin Sodium/Dextrose) 25,000 units in 500 mls @ 30 mls/hr IV .[id number] [facility]; Protocol Stop: 05/31/22 20:00 Last Titration: 05/31/22 10:56 Dose: 1,500 units/hr, 30 mls/hr Documented By: BT Co-signed By: ADRIENNE Titration: 05/31/22 07:12 Dose: 1,400 units/hr, 28 mls/hr Documented By: QG Co-signed By: BT Titration: 05/31/22 04:09 Dose: 1,400 units/hr, 28 mls/hr Documented By: QG Co-signed By: ED Admin: 05/31/22 01:41 Dose: 1,300 units/hr, 26 mls/hr Documented By: QG Co-signed By: RON Titration: 05/31/22 01:41 Dose: 1,300 units/hr, 26 mls/hr Documented By: QG Co-signed By: RON Titration: 05/30/22 21:24 Dose: 1,300 units/hr, 26 mls/hr Documented By: QG Co-signed By: RON Titration: 05/30/22 18:53 Dose: 1,200 units/hr, 24 mls/hr Documented By: QG Co-signed By: SYLVESTER Titration: 05/30/22 11:33 Dose: 1,200 units/hr, 24 mls/hr Documented By: BLK Co-signed By: AJKenisha Titration: 05/30/22 06:55 Dose: 1,000 units/hr, 20 mls/hr Documented By: BLK Co-signed By: QG Admin: 05/30/22 04:10 Dose: 1,000 units/hr, 20 mls/hr Documented By: QG Co-signed By: SYDNEE Acetaminophen (Ofirmev) 1,000 mg in 100 mls @ 400 mls/hr IV Q8H PRN PRN Reason: Pain or Fever Stop: 06/02/22 02:59 Last Infusion: 05/31/22 09:23 Dose: 0 mls/hr Documented By: Admin: 05/31/22 08:41 Dose: 400 mls/hr Documented By: Infusion: 05/30/22 23:36 Dose: 0 mls/hr Documented By: Admin: 05/30/22 22:56 Dose: 400 mls/hr Documented By: Infusion: 05/30/22 06:39 Dose: 0 mls/hr Documented By: Admin: 05/30/22 06:17 Dose: 400 mls/hr Documented By: QG Ceftriaxone Sodium 2,000 mg/ (Dextrose) 70 mls @ 100 mls/hr IV Q24H SUZIE; Protocol Stop: 06/10/22 15:59 Last Admin: 05/31/22 16:52 Dose: 100 mls/hr Documented By: SONIA Insulin Aspart (Insulin Aspart Per Unit) 0 units SC ACHS SUZIE Stop: 06/29/22 07:29 Last Admin: 05/31/22 17:15 Dose: 4 units Documented By: BT Co-signed By: MG Admin: 05/31/22 12:44 Dose: 5 units Documented By: BT Co-signed By: ADRIENNE Admin: 05/31/22 08:35 Dose: 3 units Documented By: BT Co-signed By: EMERSON Admin: 05/30/22 20:47 Dose: 2 units Documented By: QG Co-signed By: RON Admin: 05/30/22 17:23 Dose: 4 units Documented By: SYLVESTER Co-signed By: PAUL Admin: 05/30/22 12:07 Dose: 5 units Documented By: SYLVESTER Co-signed By: PAUL Admin: 05/30/22 09:14 Dose: 4 units Documented By: MERISSA Co-signed By: GREGORY Latanoprost (Latanoprost 0.005% Op Soln 2.5 Ml Btl) 1 drops OPB HS SUZIE Stop: 06/29/22 20:59 Last Admin: 05/30/22 21:24 Dose: 1 drops Documented By: QG Tamsulosin HCl (Tamsulosin Hcl 0.4 Mg Cap) 0.4 mg PO HS SUZIE Stop: 06/29/22 20:59 Last Admin: 05/30/22 20:50 Dose: 0.4 mg Documented By: QG Discontinued Medications Acetaminophen (Acetaminophen 325 Mg Tab) 650 mg PO Q4H PRN PRN Reason: Pain or Fever Stop: 06/29/22 00:06 Last Admin: 05/30/22 01:19 Dose: 650 mg Documented By: QG Heparin Sodium (Porcine) (Heparin Sod (Porcine) 1000 Unit/Ml) 4,000 units IV NOW ONE Stop: 05/30/22 03:46 Last Admin: 05/30/22 04:10 Dose: 4,000 units Documented By: JOVI Co-signed By: SYDNEE Heparin Sodium/Dextrose (Heparin Iv Adult Wt-Based Low-Dose With Bolus Protocol) 1 each IV Q15M SUZIE; Protocol Stop: 05/30/22 04:44 Last Admin: 05/30/22 04:00 Dose: Not Given Documented By: Admin: 05/30/22 03:58 Dose: Not Given Documented By: Admin: 05/30/22 03:57 Dose: Not Given Documented By: AudreyG Sodium Chloride (Nss 1000ml) 1,000 mls @ 999 mls/hr IV .Q1H1M SUZIE Stop: 05/29/22 20:45 Last Infusion: 05/29/22 21:58 Dose: 0 mls/hr Documented By: Admin: 05/29/22 20:57 Dose: 999 mls/hr Documented By: KEIRA Co-signed By: MELQUIADES Cefepime HCl (Maxipime) 2,000 mg in 20 mls @ 5 mls/min IV NOW STA; Protocol Stop: 05/29/22 19:39 Last Admin: 05/29/22 20:57 Dose: 5 mls/min Documented By: KEIRA Co-signed By: MELQUIADES Cefepime HCl 2,000 mg/ Syringe 20 mls @ 5 mls/min IV Q12H SUZIE; Protocol Stop: 06/09/22 08:59 Last Admin: 05/31/22 08:41 Dose: 5 mls/min Documented By: Admin: 05/30/22 20:48 Dose: 5 mls/min Documented By: Admin: 05/30/22 09:21 Dose: 5 mls/min Documented By: MERISSA Co-signed By: GREGORY Magnesium Sulfate/Dextrose (Magnesium Sulfate / D5w) 1 gm in 100 mls @ 50 mls/hr IV Q2H SUZIE Stop: 05/30/22 08:29 Last Infusion: 05/30/22 08:52 Dose: 0 mls/hr Documented By: Admin: 05/30/22 06:39 Dose: 50 mls/hr Documented By: Infusion: 05/30/22 06:39 Dose: 50 mls/hr Documented By: Admin: 05/30/22 04:43 Dose: 50 mls/hr Documented By: QG Heparin Sodium (Porcine) 4,000 (units/ Syringe) 4 mls @ 10 mls/min IV NOW ONE Stop: 05/30/22 11:46 Last Admin: 05/30/22 11:57 Dose: 10 mls/min Documented By: SYLVESTER Co-signed By: PAUL Ioversol (Optiray 350 100ml) 100 ml IV ONCE ONE Stop: 05/30/22 00:48 Last Admin: 05/30/22 00:48 Dose: 86 ml Documented By: JAVIER Ketorolac Tromethamine (Ketorolac Tromethamine 15 Mg/Ml Vial) 15 mg IV NOW ONE Stop: 05/30/22 02:58 Last Admin: 05/30/22 03:05 Dose: 15 mg Documented By: RON Potassium Chloride (Potassium Chloride 20 Meq/15 Ml Udc) 20 meq PO NOW STA Stop: 05/30/22 02:03 Last Admin: 05/30/22 02:23 Dose: 20 meq Documented By: QG Imaging Data Radiologist's Impression: Chest X-Ray 05/29/22 19:35 XR chest 1V portable CLINICAL HISTORY: weakness COMPARISON STUDY: Chest CT January 23, 2021. Chest radiograph October 02, 2021. FINDINGS: Kyphotic positioning is noted. Lung volumes are normal. Lungs are clear. There is no pneumothorax or pleural effusion. Cardiac size is normal. Mediastinal contours are normal. There is no evidence for pulmonary edema. IMPRESSION: No acute cardiopulmonary findings. ACT 112: Negative or not required by law. Electronically signed by: Tha Moore M.D. 05/29/2022 8:19 PM Discharge Plan Visit Data Chief Complaint: Weakness Stated Complaint: WEAKNESS/AMBULATION ED Provider: Rl Robins Discharge Problem: Weakness, Hamilton catheter in place, Complicated urinary tract infection Patient Disposition: Admitted As Inpatient Discharge Instructions Interventions: ED Discharge Assessment Last Done: 05/29/22 23:42
[2022-05-29] MEDS ORDERED: CEFEPIME 2,000 MG/20 ML VIAL IV STA (19:36)
[2022-05-29] MEDS ORDERED: SODIUM CHLORIDE 0.9% 1000ML 1,000 ML IV SCH (19:45)
[2022-05-29 20:11] LABS: Basophils # (auto) 0.03 K/uL (0-0.2); Basophils % (auto) 0.3 %; Hematocrit (blood only) 42.6 % (40.1-51.0); Hemoglobin 15.3 g/dl (14.0-18.0); Immature Granulocytes # (auto) 0.03 K/uL (0.00-0.02); Immature Granulocytes % (auto) 0.3 %; Lymphocytes # (auto) 0.66 K/uL (1.2-3.4); Lymphocytes % (auto) 6.3 %; Mean Corpuscular Hemoglobin 32.6 pg (25.0-34.0); Mean Corpuscular Hgb Conc 35.9 g/dL (32.0-36.0); Mean Corpuscular Volume 90.6 fL (80.0-100.0); Mean Platelet Volume 8.8 fL (9.4-12.4); Monocytes # (auto) 0.75 K/uL (0.24-0.82); Monocytes % (auto) 7.2 %; Neutrophils # (auto) 8.95 K/uL (1.4-6.5); Neutrophils % (auto) 85.9 %; Platelet Count 153 K/uL (130-400); RDW Coefficient of Variation 12.7 % (11.5-14.5); RDW Standard Deviation 42.5 fL (36.4-46.3); White Blood Count 10.42 K/ul (4.8-10.8)
--- NOTE | 2022-05-29 20:21 | XRay Report ---
XR chest 1V portable CLINICAL HISTORY: weakness COMPARISON STUDY: Chest CT January 23, 2021. Chest radiograph October 02, 2021. FINDINGS: Kyphotic positioning is noted. Lung volumes are normal. Lungs are clear. There is no pneumo thorax or pleural effusion. Cardiac size is normal. Mediastinal contours are normal. There is no evid ence for pulmonary edema. IMPRESSION: No acute cardiopulmonary findings. ACT 112: Negative or not required by law. Electronically signed by: Tha Moore M.D. 05/29/2022 8:19 PM
[2022-05-29 20:32] LABS: Appearance Urine Turbid (Clear); Bacteria Urine Automated 4+ (Negative); Bilirubin Urine Negative (Negative); Blood Urine 2+ (Negative); Color Urine Orange; Glucose Urine UA Trace (Negative); Ketones Urine Negative (Negative); Leukocyte Esterase Urine 3+ (Negative); Nitrite Urine Positive (Negative); Protein Urine 1+ (Negative); Specific Gravity Urine 1.014 (1.000-1.030); Urobilinogen Urine Negative (Negative); WBC Urine Automated >30 /hpf (0-5)
[2022-05-29 20:40] LABS: Alanine Aminotransferase 19 U/L (7-52); Albumin Globulin Ratio 1.7 (0.9-2); Albumin Level 4.3 gm/dl (3.4-5.0); Alkaline Phosphatase 54 U/L (34-104); Anion Gap 9 (3-11); Aspartate Aminotransferase 15 U/L (13-39); Bilirubin,Total 2.4 mg/dl (0.2-1.0); Blood Urea Nitrogen 15 mg/dl (6-23); Carbon Dioxide 24 mmol/L (21-32); Chloride 99 mmol/L (98-107); Est GFR (African American) 96.8 ml/min; Est GFR (Non-African American) 83.6 ml/min; Globulin 2.5 gm/dl (2.5-4.0); Glucose 156 mg/dl (70-99(Fasting)); Magnesium 1.7 mg/dl (1.7-2.4); Potassium 3.4 mmol/L (3.5-5.1); Sodium 132 mmol/L (136-145); Total Protein 6.8 gm/dl (6.0-8.3)
[2022-05-30] MEDS ORDERED: POLYETHYLENE (MIRALAX) 17 GM PACK PO PRN (00:07)
[2022-05-30] MEDS ORDERED: ACETAMINOPHEN 325 MG TAB PO PRN (00:07)
[2022-05-30] MEDS ORDERED: NITROGLYCERIN SL 0.4 MG/TAB TAB SL PRN (00:07)
[2022-05-30] MEDS ORDERED: OXYBUTYNIN CHLORIDE 5 MG TAB PO PRN (00:07)
[2022-05-30] MEDS ORDERED: GLUCOSE 10 TAB/TUBE PO PRN (00:45)
[2022-05-30] MEDS ORDERED: GLUCOSE 40% GEL 15 GM TUBE PO PRN (00:45)
[2022-05-30] MEDS ORDERED: CARBOHYDRATES FOR HYPOGLYCEMIA PO PRN (00:45)
[2022-05-30] MEDS ORDERED: GLUCAGON FOR INJ 1 MG VIAL IM PRN (00:45)
[2022-05-30] MEDS ORDERED: DEXTROSE 50% 50 ML SYRINGE IV PRN (00:45)
[2022-05-30] MEDS ORDERED: OPTIRAY 350 100ml IV ONE (00:47)
[2022-05-30] MEDS: SODIUM CHLORIDE 0.9% 1000ML 1,000 ML IV SCH ×3 (01:01→20:03)
[2022-05-30] MEDS: DOXYCYCLINE HYCLATE 100 MG in DEXTROSE 5% 100 ML IV SCH ×2 (01:06→11:57)
[2022-05-30] MEDS ORDERED: POTASSIUM CHLORIDE 20 MEQ/15 ML UDC PO STA (02:02)
--- NOTE | 2022-05-30 02:29 | History and Physical Report ---
DATE OF ADMISSION: 05/29/2022. CHIEF COMPLAINT: Weakness, ambulatory dysfunction, UTI, cellulitis, altered mental status. HISTORY OF PRESENT ILLNESS: This 66-year-old male was brought in from the house concerning for weakness , difficulty getting up from the recliner. The patient was sitting and soaking with the urine as per the ER and was unable to go to bathroom to defecate as per the ER. The patient lives with son, The patient seems to be a poor historian and knows his name, knows that he is in the hospital, but could not tell today's date. Could not answer and when asked who is getting the food for him, He says he has abdominal discomfort. Denies any chest pain, denies any headache, denies any nausea, vomiting .Currently afebrile. His left lower extremity is erythematous with chronic lower extremity edema. Chronic Skin changes seen in lower extremities. There was a question of no permission for son to enter patient building. Initially not able to reach the son, but the son called back call . As per son he lives with the patient. He went to court order today morning and when he came back around 3: 30pm , he forgot the jules of the house at home and he called patient, the patient is able to walk with a walker or and the patient was not answering and is not able to get up from the couch. He was falling back. Son called ambulance and brought in here. Sons ays his was changed on 05/09/2022, which seems to be right as per the [facility] notes was changed on 05/09/2022, . He is on because of multiple prostate surgeries. As per son, there is no recent fever or chills. He was doing fine until today morning, eating okay. No difficulty swallowing. He had diarrhea a couple of days ago. No other complaints. ALLERGIES: AUGMENTIN. PAST MEDICAL HISTORY: As mentioned above. PAST SURGICAL HISTORY: Cystoscopy, left knee ligament surgery. CURRENT MEDICATIONS: The patient is on atorvastatin 40 mg p.o. a.m., brimonidine one drop ophthalmic a.m., dorzolamide/timolol one drop ophthalmic a.m., finasteride 5 mg p.o. a.m., Xalatan one drop ophthalmic at bedtime, metformin 1500mg p.o. a.m., oxybutynin chloride 5 mg p.o. b.i.d. p.r.n., Flomax 0.4 mg p.o. at bedtime. FAMILY HISTORY: No family history on file. SOCIAL HISTORY: currently lives with his son. Currently, no alcohol, no smoking. No drug use as per records. REVIEW OF SYSTEMS: As per HPI. Could not get complete review of systems, patient is somewhat confused. PHYSICAL EXAMINATION: GENERAL: The patient is alert and oriented x2, not in acute distress. VITAL SIGNS: Temperature 37.4, pulse 96, respiratory rate 28, blood pressure 130/70, oxygen 91% on room air. HEENT: Pupils equal, round and reactive to light. Oral mucosa moist. NECK: No JVD, no neck masses. CARDIOVASCULAR: S1 and S2 heard. Regular rate and rhythm. No murmur, no gallop. RESPIRATORY SYSTEM: Normal AP diameter. No accessory muscle use. No wheezing, no crackles. ABDOMEN: Soft, bowel sounds present, nontender, no distention. CENTRAL NERVOUS SYSTEM: Alert and oriented x2, confused. Obeys simple commands. No facial droop, when speaking speech clear. Able to lift extremities. EXTREMITIES: Bilateral lower extremity chronic erythematous skin changes seen. Right lower extremity is erythematous in the calf region, was warm to palpation. LABORATORY DATA: WBC 10.4, hemoglobin 15.3, hematocrit 42.6, platelets 153. Sodium 132, potassium 3.4, chloride 99, bicarbonate 24, BUN 15, creatinine 0.9, serum glucose 156, calcium 10, magnesium 1.7, total bilirubin 2.4, AST 15, ALT 19, alkaline phosphatase 54. TSH 1.1. Urinalysis positive for nitrite and leukocyte esterase, +4 bacteria. SARS-CoV-2 rapid test negative. IMAGING DATA: Chest x-ray, no acute cardiopulmonary findings. EKG: Normal sinus rhythm, rate of 87, no significant change was found. ASSESSMENT AND PLAN: This 66-year-old male presents from the home for the altered mental status, UTI and leg cellulitis. 1. Altered mental status with ambulatory dysfunction and confusion, possibly ongoing infection. We will also get a CT of the head to rule out any otheer cause.. The patient's son says he was fine in the morning,Son went for his court hearing and came back at around 3:30pm when patinet was found confused and not able to get up from chair..Found to have uti and right lower extremity cellulitis. Possible cause of AMS. Started on iv cefepime and Doxycycline.After admission to floor patient was spiking fevers.Will follow cultures. To continue iv fluids.Will follow ct head, if any concern to get MRI head.No obvious facial droop or garbled speech or any unilateral weakness.Will Place him on clear to full liquid diet for now and speech evaluation in the a.m. 3. 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 Follow the cultures. ER was given cefepime , which will be continued. 4. Right lower extremity cellulitis. We will also rule out deep venous thrombosis. Place him on cefepime and doxycycline. Follow the response. 5. History of type 2 diabetes: Hold metformin. Place on insulin sliding scale and diabetic diet. Follow the blood sugars. 6. History of benign prostatic hypertrophy: On finasteride, Flomax, and chronic indwelling catheter. Follows with urology can consider urology consult.. 7. Hyperlipidemia: On statin. 8. History of abdominal lymphadenopathy. There was a concern of any malignancies, he was recently seen by Urology and advised to followup with PCP for lymphadenopathy . The PCP was planning to do colonoscopy and also repeat labs. We will get a repeat CT of abdomen and pelvis while the patient is in the hospital, last ct scan was in January.. 9. Deep venous thrombosis prophylaxis: iv heparin Addendum: Venous Doppler preliminary report shows acute DVT on Right posterior tibial vein . Started on iv heparin. DISPOSITION: Closely monitor in the med tele. PT/OT prior to discharge. Social service to help with discharge planning. We will keep him full code for now. Job ID: [id number] [facility]
[2022-05-30] MEDS ORDERED: KETOROLAC TROMETHAMINE 15 MG/ML VIAL IV ONE (02:57)
[2022-05-30] MEDS ORDERED: HEPARIN SOD (PORCINE) 1000 UNIT/ML IV ONE ×2 (03:45→11:30)
[2022-05-30] MEDS: Heparin IV Adult Wt-Based Low-Dose WITH Bolus Protocol IV SCH ×3 (03:57→04:00)
[2022-05-30 04:06] LABS: INR 1.2 (0.9-1.1); Partial Thromboplastin Ratio 1.1; Partial Thromboplastin Time 30.4 Seconds (21.0-31.0); Prothrombin Time 12.2 Seconds (9.0-12.0)
[2022-05-30] MEDS: HEPARIN SODIUM/DEXTROSE 25,000 UNITS/500 ML BAG IV SCH (04:10)
[2022-05-30 04:15] LABS: BUN Creatinine Ratio 13.2 (10-20); Calcium 9.1 mg/dl (8.5-10.1); Creatinine Clr Calc Pharmacy 87.9 ml/min; Est GFR (African American) 83.8 ml/min; Est GFR (Non-African American) 72.3 ml/min; Magnesium 1.6 mg/dl (1.7-2.4); Potassium 3.6 mmol/L (3.5-5.1)
[2022-05-30 04:22] LABS: Basophils # (auto) 0.04 K/uL (0-0.2); Basophils % (auto) 0.3 %; Eosinophils # (auto) 0.07 K/uL (0-0.50); Eosinophils % (auto) 0.6 %; Hematocrit (blood only) 41.5 % (40.1-51.0); Immature Granulocytes # (auto) 0.06 K/uL (0.00-0.02); Immature Granulocytes % (auto) 0.5 %; Lymphocytes # (auto) 0.86 K/uL (1.2-3.4); Lymphocytes % (auto) 7.2 %; Mean Corpuscular Hgb Conc 36.1 g/dL (32.0-36.0); Mean Corpuscular Volume 91.2 fL (80.0-100.0); Mean Platelet Volume 8.8 fL (9.4-12.4); Monocytes # (auto) 0.85 K/uL (0.24-0.82); Monocytes % (auto) 7.1 %; Neutrophils # (auto) 10.03 K/uL (1.4-6.5); Neutrophils % (auto) 84.3 %; Platelet Count 150 K/uL (130-400); Platelet Estimate Normal (Normal); RDW Coefficient of Variation 12.8 % (11.5-14.5); RDW Standard Deviation 42.5 fL (36.4-46.3); Red Blood Count 4.55 M/uL (4.63-6.08); White Blood Count 11.91 K/ul (4.8-10.8)
[2022-05-30] MEDS: MAGNESIUM SULFATE / D5W 1 GM/100 ML BAG IV SCH ×2 (04:43→06:39)
[2022-05-30] MEDS: ACETAMINOPHEN 1,000 MG/100 ML VIAL IV PRN ×2 (06:17→22:56)
--- NOTE | 2022-05-30 07:26 | CT Scan Report ---
CT SCAN OF THE BRAIN WITHOUT IV CONTRAST CLINICAL HISTORY: Change in mental status. COMPARISON STUDY: CT of the brain dated 10/02/2021. TECHNIQUE: Unenhanced axial CT scan of the brain is performed from the vertex to the skull base. A do se lowering technique was utilized adhering to the principles of ALARA. FINDINGS: Brain parenchyma: There is age-related involutional change noting minimal subcortical and periventric ular microangiopathic disease. There is no hemorrhage, mass effect, or evidence of acute territorial ischemia by CT criteria. Calcifications along a left frontal sulcus are unchanged. Pearson-white matter differentiation is preserved. No extra-axial fluid collection is seen. Ventricles, sulci, cisterns: Prominent secondary to involutional change. Intracranial vasculature: There is atherosclerotic calcification of the cavernous carotid arteries. Calvarium: Unremarkable. Sinuses and mastoids: The visualized paranasal sinuses are clear. The mastoid air cells are well pneu matized. Orbits: The bony orbits are grossly intact. IMPRESSION: There is no hemorrhage, mass effect, or evidence of acute territorial ischemia by CT alexandrea caldera. ACT 112: Negative or not required by law. Electronically signed by: Baldomero Shannon M.D. 05/30/2022 7:25 AM
--- NOTE | 2022-05-30 07:44 | Ultrasound Report ---
BILATERAL LOWER EXTREMITY VENOUS DOPPLER HISTORY: lower extr edema. dvt? COMPARISON STUDY: Right leg venous doppler 11/21/2021. FINDINGS: There is normal compressibility, flow, and augmentation within the left lower extremity laurel p venous system. The right posterior tibial vein is not completely compressible and demonstrate dimin utive flow. This suggest possible thrombus. The remaining right lower extremity deep venous structure s are patent. IMPRESSION: 1. Possible thrombus involving the right posterior tibial vein. 2. No DVT within the left lower extremity. ACT 112: Negative or not required by law. Electronically signed by: Froilan Diaz M.D. 05/30/2022 7:43 AM
[2022-05-30 07:57] LABS: Estimated Average Glucose 120 mg/dl; Hemoglobin A1C 5.8 % (4.5-5.6)
--- NOTE | 2022-05-30 08:23 | Electrocardiogram Report ---
Test Reason : Blood Pressure : / mmHG Vent. Rate : 087 BPM Atrial Rate : 087 BPM P-R Int : 136 ms QRS Dur : 080 ms QT Int : 356 ms P-R-T Axes : 021 047 037 degrees QTc Int : 428 ms Poor data quality, interpretation may be adversely affected Normal sinus rhythm Left atrial enlargement Borderline ECG When compared with ECG of 02-OCT-2021 13:30, No significant change was found Confirmed by Carlos Alberto Pereira ([id number]) on 05/30/2022 8:23:20 AM Referred By: REFERRED SELF Confirmed By:Carlos Alberto Pereira
--- NOTE | 2022-05-30 08:24 | Electrocardiogram Report ---
Test Reason : Blood Pressure : / mmHG Vent. Rate : 097 BPM Atrial Rate : 097 BPM P-R Int : 160 ms QRS Dur : 082 ms QT Int : 346 ms P-R-T Axes : 050 056 019 degrees QTc Int : 439 ms Poor data quality, interpretation may be adversely affected Normal sinus rhythm Normal ECG When compared with ECG of 29-MAY-2022 20:04, No significant change was found Confirmed by Carlos Alberto Pereira ([id number]) on 05/30/2022 8:23:31 AM Referred By: REFERRED SELF Confirmed By:Carlos Alberto Pereira
--- NOTE | 2022-05-30 08:26 | CT Scan Report ---
ABDOMEN AND PELVIS CT WITH IV CONTRAST CT DOSE: 2392.64 mGy.cm HISTORY: hx of abdominal lymphadenopathy TECHNIQUE: Multiaxial CT images of the abdomen and pelvis were performed following the use of intrave nous contrast. A dose lowering technique was utilized adhering to the principles of ALARA. COMPARISON STUDY: Abdomen and pelvis CT 02/06/2022. FINDINGS: Mild dependent changes seen at the lung bases. No pneumoperitoneum. No pneumatosis. The makr er, gallbladder, and adrenal glands are unremarkable. The spleen is mildly enlarged measuring 14 cm i n length. Normal pancreas. Heterogeneous enhancement within the left kidney comparison the right with mild fullness within the left renal collecting system. There is asymmetric left perinephric edema an d urothelial thickening within the left renal collecting system/ureter. Findings suggest a left-sided pyelonephritis/pyelitis. No obstructing ureteral stones. Bladder wall thickening with adjacent fat s tranding is noted. This is decompressed by Hamilton catheter. There is no significant change in the retr operitoneal, mesenteric, inguinal, and pelvic lymphadenopathy. There are partially visualized mildly enlarged distal para-aortic lymph nodes. No bowel wall thickening or obstruction. IMPRESSION: 1. Heterogeneous enhancement of the left kidney with left perinephric edema/fat stranding and urothel ial thickening within the left renal collecting system. This favors a left-sided pyelonephritis/pyeli tis. 2. Bladder wall thickening with adjacent fat stranding likely representing a cystitis. 3. Lymphadenopathy and mild splenomegaly again noted. This suggests a lymphoproliferative disorder. ACT 112: Negative or not required by law. Electronically signed by: Froilan Diaz M.D. 05/30/2022 8:25 AM
[2022-05-30] MEDS ORDERED: ENOXAPARIN INJ 40 MG/0.4 ML SYR SQ SCH (09:00)
[2022-05-30] MEDS: INSULIN ASPART PER UNIT SC SCH ×4 (09:14→20:47)
[2022-05-30] MEDS: ATORVASTATIN 40 MG TAB PO SCH (09:17)
[2022-05-30] MEDS: FINASTERIDE 5 MG TAB PO SCH (09:18)
[2022-05-30] MEDS: BRIMONIDINE TARTRATE 0.2% 5ML OPB SCH (09:18)
[2022-05-30] MEDS: CEFEPIME 2,000 MG in SYRINGE 0 ML IV SCH ×2 (09:21→20:48)
[2022-05-30] MEDS: DORZOLAMIDE/TIMOLOL 22.3/6.8MG/ML 10 ML BTL OPB SCH (09:21)
[2022-05-30 11:19] LABS: Partial Thromboplastin Ratio 1.3; Partial Thromboplastin Time 35.3 Seconds (21.0-31.0)
[2022-05-30 11:23] LABS: Albumin Level 3.8 gm/dl (3.4-5.0); Bilirubin Direct 0.6 mg/dl (0-0.2); Bilirubin,Total 2.1 mg/dl (0.2-1.0); Total Protein 6.1 gm/dl (6.0-8.3)
[2022-05-30] MEDS ORDERED: HEPARIN IV BOLUS 4,000 UNITS in SYRINGE 0 ML IV ONE (11:45)
--- NOTE | 2022-05-30 16:05 | Hospitalist Progress Note ---
Date of Service May 30, 2022 Assessment & Plan (1) Altered mental status: Plan: Found by the son to be confused at home at 3:30 PM yesterday and was unable to get up from chair Confusion seems to be clearing up since admission Has ambulatory dysfunction We will get PT and OT evaluation (2) UTI (urinary tract infection): Plan: Noted to have UTI on admission which is likely cause of confusion Patient has been growing gram-negative bacilli-sensitivity pending Has been on intravenous cefepime and doxycycline Clinically better Blood culture is pending (3) Cellulitis of right lower leg: Plan: Has chronic skin changes both the legs Redness involving the right lower extremity which has been spreading Fever with chills We will continue with intravenous ceftriaxone and doxycycline for now (4) Hypertension: Plan: Remains controlled with medication (5) Diabetes mellitus, type 2: Plan: SSI and will hold for any antidiabetic medication (6) DVT of lower extremity (deep venous thrombosis): Plan: Incidental noted to have right posterior tibial vein thrombosis Possible DVT Started on intravenous heparin Will like to repeat the ultrasound documented further DVT prophylax IV heparin CODE STATUS Full Discussed with the son Admission and Anticipated Discharge Date Admission Date: May 29, 2022 Subjective 05/30/2022 The patient was seen and examined in medical telemetry unit He has been feeling much better since admission Does not have any more confusion and denies any significant symptoms Still feels feverish and shakes at times Review of Systems Review of Systems: All systems reviewed and are unremarkable except as noted below Physical Exam Physical Exam: Lying in bed comfortably Constitutional: well developed, well nourished and + obese; not ill appearing Eyes: PERRL, conjunctivae normal, anicteric sclerae ENMT: external ear and nose normal, oropharynx normal Neck: trachea midline, no thyromegaly Respiratory: no respiratory distress Auscultation: lungs clear to auscultation bilaterally Cardiovascular: Rate/Rhythm: regular rate and regular rhythm; not tachycardic Heart Sounds: normal S1 and normal S2; no murmur Extremities: + edema (Trace to 1+ edema bilaterally with chronic skin changes) Gastrointestinal (Abdomen): Inspection/Auscultation: normal bowel sounds; abdomen not distended Percussion/Palpation: abdomen soft; abdomen nontender Musculoskeletal: No acute arthritis in any joint Neurologic: Alert, awake and oriented x3. No focal sensory or motor deficit appreciated Lymphatic: no cervical or axillary lymphadenopathy Results & Data Results & Data ([facility]) Vital Signs (Past 12 Hours) Vital Signs Temp Pulse Resp BP BP Pulse Ox O2 Del Method 05/30/22 15:38 37.9 C H 85 18 113/72 94 Room Air 05/30/22 11:54 36.4 C L 80 18 113/80 96 Room Air 05/30/22 06:04 38.6 C H 90 18 132/73 97 Room Air Laboratory Results Short CBC 05/29/22 05/30/22 Range/Units 19:35 03:43 WBC 10.42 11.91 H (4.8-10.8) K/ul Hgb 15.3 15.0 (14.0-18.0) g/dl Hct 42.6 41.5 (40.1-51.0) % Plt Count 153 150 (130-400) K/uL BMP 05/29/22 05/30/22 19:35 03:43 Sodium 132 L 133 L Potassium 3.4 L 3.6 Chloride 99 102 Carbon Dioxide 24 23 BUN 15 14 Creatinine 0.94 1.06 Glucose 156 H 174 H Calcium 10.0 9.1 Liver Function 05/29/22 05/30/22 Range/Units 19:35 10:37 Total Bilirubin 2.4 H 2.1 H (0.2-1.0) mg/dl Direct Bilirubin 0.6 H (0-0.2) mg/dl AST 15 17 (13-39) U/L ALT 19 17 (7-52) U/L Alkaline Phosphatase 54 47 (34-104) U/L Albumin 4.3 3.8 (3.4-5.0) gm/dl Urine 05/29/22 Range/Units 19:55 Urine Color Mckinley Urine Appearance Turbid A (Clear) Urine pH 6.0 (4.5-7.5) Ur Specific Martinez 1.014 (1.000-1.030) Urine Protein 1+ H (Negative) Urine Glucose (UA) Trace H (Negative) Medications Administered Current Inpatient Medications Atorvastatin Calcium (Atorvastatin 40 Mg Tab) 40 mg PO QAM SUZIE Stop: 06/29/22 08:59 Last Admin: 05/30/22 09:17 Dose: 40 mg Brimonidine Tartrate (Brimonidine Tartrate 0.2% 5ml) 1 drops OPB QAM SUZIE Stop: 06/29/22 08:59 Last Admin: 05/30/22 09:18 Dose: 1 drops Dextrose (Dextrose 50% 50 Ml Syringe) 25 - 50 ml IV UD PRN; Protocol PRN Reason: Hypoglycemia Protocol Stop: 06/29/22 00:44 Dorzolamide/Timolol (Dorzolamide/Timolol 22.3/6.8mg/Ml 10 Ml Btl) 1 drops OPB QAM SUZIE Stop: 06/29/22 08:59 Last Admin: 05/30/22 09:21 Dose: 1 drops Finasteride (Finasteride 5 Mg Tab) 5 mg PO QAM SUZIE Stop: 06/29/22 08:59 Last Admin: 05/30/22 09:18 Dose: 5 mg Glucagon (Glucagon For Inj 1 Mg Vial) 1 mg IM UD PRN; Protocol PRN Reason: Hypoglycemia Protocol Stop: 06/29/22 00:44 Glucose (Glucose 40% Gel 15 Gm Tube) 15 - 30 gm PO UD PRN; Protocol PRN Reason: Hypoglycemia Protocol Stop: 06/29/22 00:44 Glucose (Glucose 10 Tab/Tube) 4 - 8 tab PO UD PRN; Protocol PRN Reason: Hypoglycemia Protocol Stop: 06/29/22 00:44 Sodium Chloride (Nss 1000ml) 1,000 mls @ 100 mls/hr IV .Q10H SUZIE Stop: 06/29/22 00:06 Last Admin: 05/30/22 10:15 Dose: 100 mls/hr Doxycycline Hyclate 100 mg/ (Dextrose) 110 mls @ 50 mls/hr IV Q12H SUZIE Stop: 06/06/22 00:06 Last Infusion: 05/30/22 15:09 Dose: Infused Cefepime HCl 2,000 mg/ Syringe 20 mls @ 5 mls/min IV Q12H SUZIE; Protocol Stop: 06/09/22 08:59 Last Admin: 05/30/22 09:21 Dose: 5 mls/min Heparin Sodium/Dextrose (Heparin Sodium/Dextrose) 25,000 units in 500 mls @ 24 mls/hr IV .[id number] SUZIE; Protocol Stop: 06/29/22 02:59 Last Titration: 05/30/22 11:33 Dose: 1,200 units/hr, 24 mls/hr Acetaminophen (Ofirmev) 1,000 mg in 100 mls @ 400 mls/hr IV Q8H PRN PRN Reason: Pain or Fever Stop: 06/02/22 02:59 Last Infusion: 05/30/22 06:39 Dose: Infused Insulin Aspart (Insulin Aspart Per Unit) 0 units SC ACHS [facility] Stop: 06/29/22 07:29 Last Admin: 05/30/22 12:07 Dose: 5 units Latanoprost (Latanoprost 0.005% Op Soln 2.5 Ml Btl) 1 drops OPB [facility] Stop: 06/29/22 20:59 Miscellaneous (Carbohydrates For Hypoglycemia ) 15 - 30 gm PO UD PRN PRN Reason: Hypoglycemia Treatment Stop: 06/29/22 00:44 Nitroglycerin (Nitroglycerin Sl 0.4 Mg/Tab Tab) 0.4 mg SL UD PRN PRN Reason: Chest Pain Stop: 06/29/22 00:06 Oxybutynin Chloride (Oxybutynin Chloride 5 Mg Tab) 5 mg PO BID PRN PRN Reason: bladder spasms Stop: 06/29/22 00:06 Polyethylene Glycol (Polyethylene (Miralax) 17 Gm Pack) 17 gm PO DAILY PRN PRN Reason: Constipation Stop: 06/29/22 00:06 Tamsulosin HCl (Tamsulosin Hcl 0.4 Mg Cap) 0.4 mg PO [facility] Stop: 06/29/22 20:59
[2022-05-30] MEDS: TAMSULOSIN HCL 0.4 MG CAP PO SCH (20:50)
[2022-05-30 21:07] LABS: Partial Thromboplastin Ratio 1.5; Partial Thromboplastin Time 41.1 Seconds (21.0-31.0)
[2022-05-30] MEDS: LATANOPROST 0.005% OP SOLN 2.5 ML BTL OPB SCH (21:24)
[2022-05-31] MEDS: DOXYCYCLINE HYCLATE 100 MG in DEXTROSE 5% 100 ML IV SCH ×2 (00:37→12:48)
[2022-05-31] MEDS: HEPARIN SODIUM/DEXTROSE 25,000 UNITS/500 ML BAG IV SCH ×2 (01:41→20:03)
[2022-05-31 04:03] LABS: Partial Thromboplastin Ratio 1.5; Partial Thromboplastin Time 42.4 Seconds (21.0-31.0)
[2022-05-31 04:27] LABS: BUN Creatinine Ratio 13.5 (10-20); Calcium 8.8 mg/dl (8.5-10.1); Creatinine Clr Calc Pharmacy 97.1 ml/min; Est GFR (African American) 94.4 ml/min; Est GFR (Non-African American) 81.5 ml/min; Potassium 3.5 mmol/L (3.5-5.1)
[2022-05-31 04:57] LABS: Basophils # (auto) 0.03 K/uL (0-0.2); Basophils % (auto) 0.3 %; Echinocytes 1+; Eosinophils # (auto) 0.04 K/uL (0-0.50); Eosinophils % (auto) 0.4 %; Hematocrit (blood only) 40.6 % (40.1-51.0); Hemoglobin 14.3 g/dl (14.0-18.0); Immature Granulocytes # (auto) 0.06 K/uL (0.00-0.02); Immature Granulocytes % (auto) 0.6 %; Lymphocytes % (auto) 10.4 %; Mean Corpuscular Hemoglobin 32.6 pg (25.0-34.0); Mean Corpuscular Hgb Conc 35.2 g/dL (32.0-36.0); Mean Corpuscular Volume 92.7 fL (80.0-100.0); Monocytes % (auto) 7.3 %; Neutrophils # (auto) 7.79 K/uL (1.4-6.5); Platelet Count 125 K/uL (130-400); RDW Coefficient of Variation 13.1 % (11.5-14.5); RDW Standard Deviation 45.1 fL (36.4-46.3); Red Blood Count 4.38 M/uL (4.63-6.08); White Blood Count 9.62 K/ul (4.8-10.8)
[2022-05-31] MEDS: SODIUM CHLORIDE 0.9% 1000ML 1,000 ML IV SCH ×2 (05:47→16:25)
[2022-05-31] MEDS: INSULIN ASPART PER UNIT SC SCH ×4 (08:35→20:16)
[2022-05-31] MEDS: DORZOLAMIDE/TIMOLOL 22.3/6.8MG/ML 10 ML BTL OPB SCH (08:37)
[2022-05-31] MEDS: ATORVASTATIN 40 MG TAB PO SCH (08:37)
[2022-05-31] MEDS: FINASTERIDE 5 MG TAB PO SCH (08:37)
[2022-05-31] MEDS: BRIMONIDINE TARTRATE 0.2% 5ML OPB SCH (08:37)
[2022-05-31] MEDS: CEFEPIME 2,000 MG in SYRINGE 0 ML IV SCH (08:41)
[2022-05-31] MEDS: ACETAMINOPHEN 1,000 MG/100 ML VIAL IV PRN (08:41)
[2022-05-31 10:46] LABS: Partial Thromboplastin Ratio 1.6; Partial Thromboplastin Time 43.9 Seconds (21.0-31.0)
--- NOTE | 2022-05-31 13:37 | Hospitalist Progress Note ---
Date of Service May 31, 2022 Assessment & Plan (1) Altered mental status: Plan: Metabolic encephalopathy, secondary to UTI, possible right lower extremity cellulitis Found by the son to be confused at home at 3:30 PM yesterday and was unable to get up from chair Confusion seems to be clearing up since admission Has ambulatory dysfunction We will get PT and OT evaluation 05/31 Mental status back to baseline Management of UTI and cellulitis present PT and OT evaluation (2) UTI (urinary tract infection): Plan: Likely catheter associated UTI, Klebsiella Noted to have UTI on admission which is likely cause of confusion Patient has been growing gram-negative bacilli-sensitivity pending Has been on intravenous cefepime and doxycycline Clinically better Blood culture is pending 05/31 Urine culture: Klebsiella Blood cultures: Negative so far Change cefepime to ceftriaxone 2 g IV to complete 10-day course Hamilton catheter needs to be changed (3) Cellulitis of right lower leg: Plan: Has chronic skin changes both the legs Redness involving the right lower extremity which has been spreading Fever with chills We will continue with intravenous ceftriaxone and doxycycline for now 05/31 Continue doxycycline, ceftriaxone Monitor leg erythema (4) DVT of lower extremity (deep venous thrombosis): Plan: right posterior tibial vein thrombosis Main risk factor appears to be sedentary lifestyle at home Patient symptomatic, having pain, edema on right lower extremity Change heparin to Eliquis Will need to follow-up with maple sugar maker DVT prophylax Heparin, changed to Eliquis CODE STATUS Full Disposition Lives alone at home PT and OT evaluation pending May need to transition to inpatient rehab first prior to returning to (5) Hypertension: Plan: Remains controlled with medication (6) Diabetes mellitus, type 2: Plan: SSI and will hold for any antidiabetic medication Admission and Anticipated Discharge Date Admission Date: May 29, 2022 Subjective Follow-up for altered mental status, UTI, right lower extremity cellulitis, right lower extremity DVT, etc. Seen resting in bed, comfortable, not in distress Awake, alert, oriented x3 Answers all questions appropriately States he feels fine overall No fevers or chills, abdominal pain, nausea vomiting Reports mild right lower extremity pain especially with movement No shortness of breath, chest pain No other symptoms Review of Systems Review of Systems: all noted and negative except for above Physical Exam Physical Exam: General- oriented x 3, not in distress, speaks in sentences with no effort or accessory muscle use Eyes- anicteric Neck- no JVD Lungs- clear breath sounds bilaterally, no rales/wheezes Heart- normal rate, regular rhythm; no murmurs Abdomen- normal bowel sounds, nondistended, soft, nontender Hamilton catheter in place-draining yellow urine Extremities-positive grade 1 lower extremity edema, right, with mild erythema, no tenderness, no warmth Neuro- alert, oriented x 3; no gross focal neurologic deficits Skin- warm & dry Results & Data Results & Data ([facility]) Vital Signs (Past 12 Hours) Vital Signs Temp Pulse Pulse Resp BP BP Pulse Ox 05/31/22 11:32 36.5 C 70 20 117/66 97 05/31/22 09:24 71 05/31/22 07:22 36.6 C 68 18 117/77 96 05/31/22 03:04 36.8 C 76 20 118/76 96 O2 Del Method 05/31/22 11:32 Room Air 05/31/22 09:24 05/31/22 07:22 Room Air 05/31/22 03:04 Room Air all noted and reviewed including below
[2022-05-31] MEDS: cefTRIAXone SODIUM 2,000 MG in DEXTROSE 5% 50 ML IV SCH (16:52)
[2022-05-31 17:16] LABS: Partial Thromboplastin Ratio 1.8
[2022-05-31 17:18] LABS: Partial Thromboplastin Time 50.1 Seconds (21.0-31.0)
[2022-05-31] MEDS ORDERED: HEPARIN STOP ORDER ONE (20:00)
[2022-05-31] MEDS: APIXABAN 5 MG TABLET PO SCH (21:02)
[2022-05-31] MEDS: TAMSULOSIN HCL 0.4 MG CAP PO SCH (21:03)
[2022-05-31] MEDS: LATANOPROST 0.005% OP SOLN 2.5 ML BTL OPB SCH (21:04)
[2022-06-01] MEDS: DOXYCYCLINE HYCLATE 100 MG in DEXTROSE 5% 100 ML IV SCH ×2 (01:05→12:50)
[2022-06-01] MEDS: SODIUM CHLORIDE 0.9% 1000ML 1,000 ML IV SCH ×3 (01:53→23:09)
[2022-06-01] MEDS: ATORVASTATIN 40 MG TAB PO SCH (08:24)
[2022-06-01] MEDS: FINASTERIDE 5 MG TAB PO SCH (08:24)
[2022-06-01] MEDS: APIXABAN 5 MG TABLET PO SCH ×2 (08:25→21:55)
[2022-06-01] MEDS: BRIMONIDINE TARTRATE 0.2% 5ML OPB SCH (08:26)
[2022-06-01] MEDS: DORZOLAMIDE/TIMOLOL 22.3/6.8MG/ML 10 ML BTL OPB SCH (08:26)
[2022-06-01] MEDS: INSULIN ASPART PER UNIT SC SCH ×4 (08:33→21:58)
--- NOTE | 2022-06-01 14:25 | Hospitalist Progress Note ---
Date of Service June 01, 2022 Assessment & Plan (1) Altered mental status: Plan: Metabolic encephalopathy, secondary to UTI, possible right lower extremity cellulitis Found by the son to be confused at home at 3:30 PM yesterday and was unable to get up from chair Confusion seems to be clearing up since admission Has ambulatory dysfunction We will get PT and OT evaluation 06/01 Mental status back to baseline Management of UTI and cellulitis present PT and OT evaluation: recommending rehab (2) UTI (urinary tract infection): Plan: Likely catheter associated UTI, Klebsiella Noted to have UTI on admission which is likely cause of confusion Patient has been growing gram-negative bacilli-sensitivity pending Has been on intravenous cefepime and doxycycline Clinically better Blood culture is pending 06/01 Urine culture: Klebsiella Blood cultures: Negative Change cefepime to ceftriaxone 2 g IV to complete 10-day course Hamilton catheter needs to be changed (3) Cellulitis of right lower leg: Plan: Has chronic skin changes both the legs Redness involving the right lower extremity which has been spreading Fever with chills We will continue with intravenous ceftriaxone and doxycycline for now 06/01 Continue doxycycline, ceftriaxone improving leg erythema (4) DVT of lower extremity (deep venous thrombosis): Plan: right posterior tibial vein thrombosis Main risk factor appears to be sedentary lifestyle at home Patient symptomatic, having pain, edema on right lower extremity Change heparin to Eliquis Will need to follow-up with bill recapitulation clerk DVT prophylax Heparin, changed to Eliquis CODE STATUS Full Disposition Lives alone at home PT and OT evaluation pending May need to transition to inpatient rehab first prior to returning to (5) Hypertension: Plan: Remains controlled with medication (6) Diabetes mellitus, type 2: Plan: SSI and will hold for any antidiabetic medication Admission and Anticipated Discharge Date Admission Date: May 29, 2022 Subjective ff up for encephalopathy, UTI, DVT etc seen resting in bed, comfortable in good spirits states he feels improved overall denies abdominal pain, nausea/vomiting, fever/chills RLE pain seems to be improving reports feeling weak when ambulating no other symptoms Review of Systems Review of Systems: all noted and negative except for above Physical Exam Physical Exam: General- oriented x 3, not in distress, speaks in sentences wi th no effort or accessory muscle use Eyes- anicteric Neck- no JVD Lungs- clear breath sounds bilaterally, no rales/wheezes Heart- normal rate, regular rhythm; no murmurs Abdomen- normal bowel sounds, nondistended, soft, nontender Hamilton cath in place- yellow urine Extremities- mild RLE edema, with mild erythema LLE no edema Neuro- alert, oriented x 3; no gross focal neurologic deficits Skin- warm & dry Results & Data Results & Data ([facility]) Vital Signs (Past 12 Hours) Vital Signs Temp Pulse Pulse Resp BP Pulse Ox O2 Del Method 06/01/22 11:08 36.6 C 72 18 127/77 97 Room Air 06/01/22 07:59 69 06/01/22 07:43 37.0 C 70 18 119/77 94 Room Air 06/01/22 03:26 36.7 C 73 18 111/69 96 Room Air all noted and reviewed including below
[2022-06-01] MEDS: cefTRIAXone SODIUM 2,000 MG in DEXTROSE 5% 50 ML IV SCH (15:48)
[2022-06-01] MEDS: LATANOPROST 0.005% OP SOLN 2.5 ML BTL OPB SCH (21:54)
[2022-06-01] MEDS: DOXYCYCLINE HYCLATE 100 MG CAP PO SCH (21:55)
[2022-06-01] MEDS: TAMSULOSIN HCL 0.4 MG CAP PO SCH (21:56)
[2022-06-02] MEDS: DOXYCYCLINE HYCLATE 100 MG CAP PO SCH (08:31)
[2022-06-02] MEDS: DORZOLAMIDE/TIMOLOL 22.3/6.8MG/ML 10 ML BTL OPB SCH (08:32)
[2022-06-02] MEDS: FINASTERIDE 5 MG TAB PO SCH (08:32)
[2022-06-02] MEDS: APIXABAN 5 MG TABLET PO SCH (08:32)
[2022-06-02] MEDS: ATORVASTATIN 40 MG TAB PO SCH (08:32)
[2022-06-02] MEDS: BRIMONIDINE TARTRATE 0.2% 5ML OPB SCH (08:32)
[2022-06-02] MEDS: INSULIN ASPART PER UNIT SC SCH ×2 (08:37→12:52)
[2022-06-02] MEDS: SODIUM CHLORIDE 0.9% 1000ML 1,000 ML IV SCH (09:53)
--- NOTE | 2022-06-02 11:12 | Hospitalist Progress Note ---
Date of Service June 02, 2022 Assessment & Plan (1) Altered mental status: Plan: Metabolic encephalopathy, secondary to UTI, possible right lower extremity cellulitis Found by the son to be confused at home at 3:30 PM yesterday and was unable to get up from chair Confusion seems to be clearing up since admission Has ambulatory dysfunction We will get PT and OT evaluation 06/02 Mental status back to baseline on hospital day #2 Management of UTI and cellulitis present PT and OT evaluation: recommending rehab (2) UTI (urinary tract infection): Plan: Likely catheter associated UTI, Klebsiella Noted to have UTI on admission which is likely cause of confusion Patient has been growing gram-negative bacilli-sensitivity pending Has been on intravenous cefepime and doxycycline Clinically better Blood culture is pending 06/02 Urine culture: Klebsiella oxytoca Blood cultures: Negative Changed cefepime to ceftriaxone 2 g IV Transition to cefdinir 300 mg twice daily x7 days to complete 10-day course Hamilton catheter changed on admission Follow-up with urologist as scheduled (3) Cellulitis of right lower leg: Plan: Has chronic skin changes both the legs Redness involving the right lower extremity which has been spreading Fever with chills We will continue with intravenous ceftriaxone and doxycycline for now 06/02 Continue doxycycline 100 mg twice daily x4 more days to complete 1 week course improving leg erythema (4) DVT of lower extremity (deep venous thrombosis): Plan: right posterior tibial vein thrombosis Main risk factor appears to be sedentary lifestyle at home Patient symptomatic, was having pain, edema on right lower extremity Transition from heparin to Eliquis Eliquis 10 mg twice daily until June 07, then Eliquis 5 mg twice daily Patient needs to be referred to a coronary clinical specialist DVT prophylax Eliquis CODE STATUS Full Disposition Discharge to [facility] Follow-up with PCP in 1 week after discharge from [facility] Follow-up with urologist as scheduled Needs to be referred to coronary clinical specialist (5) Hypertension: Plan: Remains controlled with medication (6) Diabetes mellitus, type 2: Plan: SSI and will hold for any antidiabetic medication Admission and Anticipated Discharge Date Admission Date: May 29, 2022 Subjective ff up for encephalopathy, UTI, DVT, etc seen resting in bed, comfortable sitting up, states he feels much better overall Denies fever chills, abdominal pain, nausea vomiting Denies pain on the right lower extremity No other new symptoms States he is ready for [facility] Review of Systems Review of Systems: all noted and negative except for above Physical Exam 2 Physical Exam: General- oriented x 3, not in distress, speaks in sentences with no effort or accessory muscle use Eyes- anicteric Neck- no JVD Lungs- clear BS bilaterally, no rales/wheezes Heart- normal rate, regular rhythm; no murmurs Abdomen- normal bowel sounds, nondistended, soft, nontender Hamilton catheter in place-yellow urine Extremities-right lower extremity: Mild edema, and erythema, no tenderness, very dry skin Left lower extremity: Very dry skin, no edema or erythema Neuro- alert, oriented x 3; no gross focal neurologic deficits Skin- warm & dry Results & Data Results & Data ([facility]) Vital Signs (Past 12 Hours) Vital Signs Temp Pulse Pulse Resp BP BP Pulse Ox 06/02/22 05:56 63 06/02/22 07:51 36.4 C L 68 18 130/76 96 06/02/22 02:42 36.5 C 69 18 123/73 98 06/01/22 23:30 36.8 C 69 18 138/89 97 O2 Del Method 06/02/22 05:56 06/02/22 07:51 Room Air 06/02/22 02:42 Room Air 06/01/22 23:30 Room Air all noted and reviewed including below
--- NOTE | 2022-06-02 11:27 | Discharge Summary ---
Discharge Summary Date of Service June 02, 2022 Notes For Next Care Provider Carmela started for DVT of the right lower extremity, to be taken as follows: 10 mg twice daily until June 07, then 5 mg twice daily Doxycycline 100 mg twice daily x4 days Cefdinir 300 mg twice daily x7 days Medication Changes From Visit Per above Admission HPI Per Admitting Provider CHIEF COMPLAINT: Weakness, ambulatory dysfunction, UTI, cellulitis, altered mental status. HISTORY OF PRESENT ILLNESS: This 66-year-old male was brought in from the house concerning for weakness , difficulty getting up from the recliner. The patient was sitting and soaking with the urine as per the ER and was unable to go to bathroom to defecate as per the ER. The patient lives with son, The patient seems to be a poor historian and knows his name, knows that he is in the hospital, but could not tell today's date. Could not answer and when asked who is getting the food for him, He says he has abdominal discomfort. Denies any chest pain, denies any headache, denies any nausea, vomiting .Currently afebrile. His left lower extremity is erythematous with chronic lower extremity edema. Chronic Skin changes seen in lower extremities. There was a question of no permission for son to enter patient building. Initially not able to reach the son, but the son called back call . As per son he lives with the patient. He went to court order today morning and when he came back around 3: 30pm , he forgot the jules of the house at home and he called patient, the patient is able to walk with a walker or and the patient was not answering and is not able to get up from the couch. He was falling back. Son called ambulance and brought in here. Sons ays his was changed on 05/09/2022, which seems to be right as per the [facility] notes was changed on 05/09/2022, . He is on because of multiple prostate surgeries. As per son, there is no recent fever or chills. He was doing fine until today morning, eating okay. No difficulty swallowing. He had diarrhea a couple of days ago. No other complaints. Admission Exam Per Admitting Provider GENERAL: The patient is alert and oriented x2, not in acute distress. VITAL SIGNS: Temperature 37.4, pulse 96, respiratory rate 28, blood pressure 130/70, oxygen 91% on room air. HEENT: Pupils equal, round and reactive to light. Oral mucosa moist. NECK: No JVD, no neck masses. CARDIOVASCULAR: S1 and S2 heard. Regular rate and rhythm. No murmur, no gallop. RESPIRATORY SYSTEM: Normal AP diameter. No accessory muscle use. No wheezing, no crackles. ABDOMEN: Soft, bowel sounds present, nontender, no distention. CENTRAL NERVOUS SYSTEM: Alert and oriented x2, confused. Obeys simple commands. No facial droop, when speaking speech clear. Able to lift extremities. EXTREMITIES: Bilateral lower extremity chronic erythematous skin changes seen. Right lower extremity is erythematous in the calf region, was warm to palpation. Principal Dx & Hospital Course #1 = Principal Diagnosis (1) Altered mental status: Metabolic encephalopathy, secondary to UTI, possible right lower extremity cellulitis Found by the son to be confused at home at 3:30 PM yesterday and was unable to get up from chair Confusion seems to be clearing up since admission Has ambulatory dysfunction 06/02 Mental status back to baseline on hospital day #2 Management of UTI and cellulitis present PT and OT evaluation: recommending rehab (2) UTI (urinary tract infection): Likely catheter associated UTI, Klebsiella Pyelonephritis, left Noted to have UTI on admission which is the likely cause of confusion Ct abd/pelvis: 1. Heterogeneous enhancement of the left kidney with left perinephric edema/fat stranding and urothelial thickening within the left renal collecting system. This favors a left-sided pyelonephritis/pyelitis. 2. Bladder wall thickening with adjacent fat stranding likely representing a cystitis. 3. Lymphadenopathy and mild splenomegaly again noted. This suggests a lymphoproliferative disorder. 06/02 Urine culture: Klebsiella oxytoca Blood cultures: Negative Changed cefepime to ceftriaxone 2 g IV Transition to cefdinir 300 mg twice daily x7 days to complete 10-day course catheter changed on admission Follow-up with urologist as scheduled (3) Abnormal CT of the abdomen: There is no significant change in the retroperitoneal, mesenteric, inguinal, and pelvic lymphadenopathy. There are partially visualized mildly enlarged distal para-aortic lymph nodes. No bowel wall thickening or obstruction. Lymphadenopathy and mild splenomegaly again noted. This suggests a lymphoproliferative disorder. Peripheral smear ordered, pending Patient needs to be referred to a band shover Further work-up and follow-up for possible lymphoproliferative disorder as an outpatient (4) Cellulitis of right lower leg: Has chronic skin changes both the legs Redness involving the right lower extremity which has been spreading Fever with chills 06/02 Continue doxycycline 100 mg twice daily x4 more days to complete 1 week course improving pain and leg erythema of the right lower extremity (5) DVT of lower extremity (deep venous thrombosis): Right posterior tibial vein thrombosis Main risk factor appears to be sedentary lifestyle at home Possible underlying lymphoproliferative disorder (based on lymphadenopathy seen on CT abdomen and pelvis)? Patient symptomatic, was having pain, edema on right lower extremity Transition from heparin to Eliquis Eliquis 10 mg twice daily until June 07, then Eliquis 5 mg twice daily Patient needs to be referred to a band shover (6) Hypertension: Remains controlled with medication CT head:There is age-related involutional change noting minimal subcortical and periventricular microangiopathic disease. continue strict BP and Lipid control (7) Diabetes mellitus, type 2: A1c 5.8 Continue metformin Plan DVT prophylax Eliquis CODE STATUS Full Disposition Discharge to [facility] Follow-up with PCP in 1 week after discharge from [facility] Follow-up with urologist as scheduled Needs to be referred to band shover Discharge Exam General- oriented x 3, not in distress, speaks in sentences with no effort or accessory muscle use Eyes- anicteric Neck- no JVD Lungs- clear BS bilaterally, no rales/wheezes Heart- normal rate, regular rhythm; no murmurs Abdomen- normal bowel sounds, nondistended, soft, nontender catheter in place-yellow urine Extremities-right lower extremity: Mild edema, and erythema, no tenderness, very dry skin Left lower extremity: Very dry skin, no edema or erythema Neuro- alert, oriented x 3; no gross focal neurologic deficits Skin- warm & dry Updated Medication List Medication Instructions Recorded Confirmed Type dorzolamide 22.3 mg-timolol 6.8 1 drp OPB QAM 02/03/20 05/29/22 History mg/mL eye drops latanoprost 0.005 % eye drops 1 drp OPB HS 02/03/20 05/29/22 History (Xalatan) brimonidine 0.2 % eye drops 1 drp OPB QAM 05/06/21 05/29/22 History atorvastatin 40 mg tablet 40 mg PO QAM 10/02/21 05/29/22 History finasteride 5 mg tablet 5 mg PO QAM 10/02/21 05/29/22 History tamsulosin 0.4 mg capsule 0.4 mg PO HS #30 caps 10/31/21 05/29/22 Rx oxybutynin chloride 5 mg tablet 5 mg PO BID PRN bladder spasms #30 05/08/22 05/29/22 Rx tabs metformin 500 mg tablet,extended 1,500 mg PO QAM 05/29/22 05/29/22 History release 24 hr Lactobacillus acidoph-L.bulgaricus 1 tab PO DAILY #20 tabs 06/02/22 Rx 1 million cell tablet (Floranex) apixaban 5 mg tablet (Eliquis) 5 mg PO BID #60 tabs 06/02/22 Rx cefdinir 300 mg capsule 300 mg PO BID 7 days #14 caps 06/02/22 Rx doxycycline hyclate 100 mg capsule 100 mg PO BID 4 days #8 caps 06/02/22 Rx Hospital Stay Data Consultations 05/29/22 21:47 ED Decision to Admit Stat Diagnostic Imagining Performed Chest X-Ray 05/29/22 19:35 XR chest 1V portable CLINICAL HISTORY: weakness COMPARISON STUDY: Chest CT January 23, 2021. Chest radiograph October 02, 2021. FINDINGS: Kyphotic positioning is noted. Lung volumes are normal. Lungs are clear. There is no pneumothorax or pleural effusion. Cardiac size is normal. Mediastinal contours are normal. There is no evidence for pulmonary edema. IMPRESSION: No acute cardiopulmonary findings. ACT 112: Negative or not required by law. Electronically signed by: Tha Moore M.D. 05/29/2022 8:19 PM Abdomen/Pelvis CT 05/30/22 00:[address] WITH IV CONTRAST CT DOSE: 2392.64 mGy.cm HISTORY: hx of abdominal lymphadenopathy TECHNIQUE: Multiaxial CT images of the abdomen and pelvis were performed follow ing the use of intravenous contrast. A dose lowering technique was utilized adhering to the principles of ALARA. COMPARISON STUDY: Abdomen and pelvis CT 02/06/2022. FINDINGS: Mild dependent changes seen at the lung bases. No pneumoperitoneum. No pneumatosis. The liver, gallbladder, and adrenal glands are unremarkable. The spleen is mildly enlarged measuring 14 cm in length. Normal pancreas. He terogeneous enhancement within the left kidney comparison the right with mild fullness within the left renal collecting system. There is asymmetric left perinephric edema and urothelial thickening within the left renal collecting system/ureter. Findings suggest a left-sided pyelonephritis/pyelitis. No obstructing ureteral stones. Bladder wall thickening with adjacent fat stranding is noted. This is decompressed by catheter. There is no significant change in the retroperitoneal, mesenteric, inguinal, and pelvic lymphadenopathy. There are partially visualized mildly enlarged distal para-aortic lymph nodes. No bowel wall thickening or obstruction. IMPRESSION: 1. Heterogeneous enhancement of the left kidney with left perinephric edema/fat stranding and urothelial thickening within the left renal collecting system. This favors a left-sided pyelonephritis/pyelitis. 2. Bladder wall thickening with adjacent fat stranding likely representing a cystitis. 3. Lymphadenopathy and mild splenomegaly again noted. This suggests a lymphoproliferative disorder. ACT 112: Negative or not required by law. Electronically signed by: Froilan Diaz M.D. 05/30/2022 8:[address] 05/30/22 00:07 CT SCAN OF THE BRAIN WITHOUT IV CONTRAST CLINICAL HISTORY: Change in mental status. COMPARISON STUDY: CT of the brain dated 10/02/2021. TECHNIQUE: Unenhanced axial CT scan of the brain is performed from the vertex to the skull base. A dose lowering technique was utilized adhering to the principles of ALARA. FINDINGS: Brain parenchyma: There is age-related involutional change noting minimal subcortical and periventricular microangiopathic disease. There is no hemorrhage, mass effect, or evidence of acute territorial ischemia by CT criteri a. Calcifications along a left frontal sulcus are unchanged. Pearson-white matter differentiation is preserved. No extra-axial fluid collection is seen. Ventricles, sulci, cisterns: Prominent secondary to involutional change. Intracranial vasculature: There is atherosclerotic calcification of the cavernous carotid arteries. Calvarium: Unremarkable. Sinuses and mastoids: The visualized paranasal sinuses are clear. The mastoid air cells are well pneumatized. Orbits: The bony orbits are grossly intact. IMPRESSION: There is no hemorrhage, mass effect, or evidence of acute territorial ischemia by CT criteria. ACT 112: Negative or not required by law. Electronically signed by: Baldomero Shannon M.D. 05/30/2022 7:25 AM Venous Doppler Study 05/30/22 00:07 BILATERAL LOWER EXTREMITY VENOUS DOPPLER HISTORY: lower extr edema. dvt? COMPARISON STUDY: Right leg venous doppler 11/21/2021. FINDINGS: There is normal compressibility, flow, and augmentation within the left lower extremity deep venous system. The right posterior tibial vein is not completely compressible and demonstrate diminutive flow. This suggest possible thrombus. The remaining right lower extremity deep venous structures are patent. IMPRESSION: 1. Possible thrombus involving the right posterior tibial vein. 2. No DVT within the left lower extremity. ACT 112: Negative or not required by law. Electronically signed by: Frolian Diaz M.D. 05/30/2022 7:43 AM 05/30/22 00:07 CT Abd and Pelvis [CT abd pelvis IV con only] Urgent CT head/brain wo con Urgent US venous doppler LE BI Urgent Pending Results Patient Have Any Pending Studies at Discharge: No Discharge Instructions Given to Patient (Per Discharging Provider) Please refer to accompanying hospital discharge summary for further details. Total Time Total Time Spent Total Time Spent (In Minutes): >30 minutes
[2022-06-07] MEDS ORDERED: APIXABAN 5 MG TABLET PO SCH (21:00)
== END 2022-06-02 13:48 | DRG 698 ==
LOC: ED 19:03 → SUATTDRO 22:36 → 2N 22:36
DX: B96.89 Other specified bacterial agents as the cause of diseases classified elsewhere; I10 Essential (primary) hypertension; R16.1 Splenomegaly, not elsewhere classified; Z88.0 Allergy status to penicillin; Z79.899 Other long term (current) drug therapy; R26.2 Difficulty in walking, not elsewhere classified; I82.441 Acute embolism and thrombosis of right tibial vein; E11.9 Type 2 diabetes mellitus without complications; L03.115 Cellulitis of right lower limb; T83.511A Infection and inflammatory reaction due to indwelling urethral catheter, initial encounter; Z88.8 Allergy status to other drugs, medicaments and biological substances; Y73.2 Prosthetic and other implants, materials and accessory gastroenterology and urology devices associated with adverse incidents; Z87.891 Personal history of nicotine dependence; H40.9 Unspecified glaucoma; N12 Tubulo-interstitial nephritis, not specified as acute or chronic; Z20.822 Contact with and (suspected) exposure to COVID-19; N40.0 Benign prostatic hyperplasia without lower urinary tract symptoms; Z79.84 Long term (current) use of oral hypoglycemic drugs; G93.41 Metabolic encephalopathy; R59.0 Localized enlarged lymph nodes

== ENCOUNTER 2023-06-22 19:29 | Inpatient (IN) ==
[2023-06-22 20:06] LABS: Basophils # (auto) 0.04 K/uL (0.00-0.20); Basophils % (auto) 0.3 %; Hematocrit (blood only) 46.3 % (42.0-52.0); Hemoglobin 16.6 g/dl (14.0-18.0); Immature Granulocytes # (auto) 0.08 K/uL (0.01-0.20); Immature Granulocytes % (auto) 0.6 %; Lymphocytes # (auto) 0.65 K/uL (1.20-3.40); Lymphocytes % (auto) 4.8 %; Mean Corpuscular Hemoglobin 32.5 pg (25.0-34.0); Mean Corpuscular Hgb Conc 35.9 g/dL (32.0-36.0); Mean Corpuscular Volume 90.8 fL (80.0-100.0); Mean Platelet Volume 9.6 fL (9.4-12.4); Monocytes % (auto) 5.8 %; Neutrophils # (auto) 12.11 K/uL (1.40-6.50); Neutrophils % (auto) 88.5 %; Platelet Count 146 K/uL (130-400); RDW Coefficient of Variation 13.1 % (11.5-14.5); RDW Standard Deviation 43.6 fL (36.4-46.3); White Blood Count 13.68 K/ul (4.8-10.8)
[2023-06-22 20:20] LABS: Alanine Aminotransferase 22 U/L (7-52); Albumin Level 4.5 gm/dl (3.4-5.0); Alkaline Phosphatase 43 U/L (34-104); Anion Gap 10 (3-11); Aspartate Aminotransferase 19 U/L (13-39); BUN Creatinine Ratio 14.8 (10-20); Bilirubin,Total 2.8 mg/dl (0.2-1.0); Blood Urea Nitrogen 17 mg/dl (6-23); Calcium 9.6 mg/dl (8.6-10.3); Carbon Dioxide 22 mmol/L (21-32); Chloride 100 mmol/L (98-107); Est GFR (African American) 75.4 ml/min; Globulin 2.3 gm/dl (2.5-4.0); Glucose 159 mg/dl (70-99(Fasting)); Potassium 3.8 mmol/L (3.5-5.1); Sodium 132 mmol/L (136-145); Total Protein 6.8 gm/dl (6.0-8.3)
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
--- NOTE | 2023-06-22 22:49 | Emergency Department Note ---
Impression & Plan Dizziness, UTI (urinary tract infection), Altered mental status, Fever, Chest pain, SOB (shortness of breath), Fall, Closed head injury ED Provider Note CHIEF COMPLAINT: Dizziness HISTORY OF PRESENTING ILLNESS: This 67-year-old male patient presents to the emergency department for evaluation of dizziness that started today after falling off his scooter. The patient states that he was on his scooter and bumped into something causing him to fall off of his scooter right before the dizziness started. He states that he hit his head on the wall as he fell. Unsure if he had LOC. Having pain in his head and neck since the fall. The dizziness seems to be getting worse. Also having SOB and mild discomfort in his chest that started prior to falling off his scooter. He is also having pain to the right side of his ribs where he fell. Denies abdominal pain or vomiting, but has had some nausea. He did not have any dizziness before he fell. However, he did have the SOB and chest discomfort before he fell off of his scooter. Having mild pain in the right hip since the fall as well. The chest pain and SOB started around noon today. He is on Eliquis. He denies any fevers, cough, or URI symptoms REVIEW OF SYSTEMS: See HPI for pertinent positives and pertinent negatives. ALLERGIES: Augmentin. MEDICATIONS: See below PAST MEDICAL HISTORY: See below PHYSICAL EXAM: VITALS: Vitals are noted on the nurse's note and reviewed by myself. GENERAL: No acute distress, non-diaphoretic. SKIN: No obvious lacerations or abrasions. Capillary reflex less than 2 seconds. HEAD: No scalp tenderness. No step-offs felt. EARS: Bilateral external auditory canals clear. Bilateral tympanic membranes pearly whitt without erythema or effusion. No hemotympanum. No vail sign. No mastoid tenderness. EYES: Pupils equal round and reactive to light and accommodation. Conjunctivae without injection, sclerae without icterus. Extraocular movements intact without pain. No nystagmus. NOSE: Patent, turbinates without inflammation or discharge. No sinus tenderness. No septal hematoma or bleeding. FACE: No facial bone tenderness. Full range of motion of the jaw without tenderness. No facial droop. MOUTH: Mucous membranes moist. Uvula midline. Airway patent. Tongue does not deviate. NECK: Supple without nuchal rigidity. Cervical spine is nontender, but he does have some mild bilateral paraspinal muscle tenderness. Full range of motion of the neck with minimal tenderness and normal strength. HEART: Tachycardic without murmurs gallops or rubs. LUNGS: Clear to auscultation bilaterally without wheezes, rales or rhonchi. No retractions or accessory muscle use. Mild right-sided chest wall tenderness. No fracture crepitus or flail chest. ABDOMEN: Positive bowel sounds x 4. Normal tympanic percussion. Soft, nontender, without masses or organomegaly. No guarding or rebound tenderness. MUSCULOSKELETAL: No tenderness of the thoracic or lumbar spine or paraspinal muscles. Mild tenderness to palpation over the lateral aspect of the right hip. Full range of motion of the right hip with minimal discomfort. Full range of motion with no tenderness to palpation of the remainder of the bilateral upper or lower extremities. Peripheral pulses 2+. NEURO: Patient was alert and oriented, but did seem forgetful and sometimes confused on exam. Normal sensation to light and sharp touch. Cerebellar function intact. No other focal neurological deficits. DIFFERENTIAL DIAGNOSIS: Differential diagnosis includes benign positional vertigo, dehydration, hypovolemia, anemia, tumor, infection, hypoglycemia, electrolyte abnormalities, cardiac sources, intracerebral event, toxicologic, neurologic, fracture, dislocation, subluxation, contusion, intra-abdominal injury, pneumothorax, intrathoracic injury, intracranial injury, neurologic, as well as other pathologies. ED COURSE AND MEDICAL DECISION MAKING: MONITOR: Continuous athletic monitor: Order was placed for continuous athletic monitor. Patient was placed on the athletic monitor and continuous pulse ox. Patient was noted to be in sinus tachycardia at an initial rate of 106 bpm per my interpretation. EKG: EKG was interpreted by myself as normal sinus rhythm at [address] bpm with no acute [address] or T wave changes. MEDICATIONS GIVEN: A total of 1.5 L normal saline solution bolus. Tylenol 1000 mg p.o. Zofran 4 mg IV. Rocephin 2 g IV. INTERPRETATION OF LABS: I interpreted the labs with full lab results as below in the lab section of this note. White blood cell count is elevated at 13.68. Hemoglobin normal at 16.6. Platelet count normal at 146. INR 1.2 and PT 12.7. Sodium 132, total bilirubin 2.8, and glucose 159, but CMP otherwise essentially unremarkable. High-sensitivity troponin was normal. Lipase normal. Lactate normal. Urinalysis concerning for infection with urine culture pending. COVID, influenza, and RSV were negative. Blood cultures pending. INTERPRETATION OF IMAGING: X-rays of the right hip with pelvis was interpreted by myself as negative for acute fracture or dislocation. Radiology report still pending. Additional imaging studies were interpreted by myself and read by radiology as per the imaging section of this note. CT scans of the head and cervical spine were negative for acute intracranial abnormality, fracture, or subluxation. CTA of the head and neck with contrast were negative for acute abnormalities. CTA of the chest was negative for PE or other acute cardiopulmonary etiology. MDM SUMMARY: I examined the patient. An IV lock was placed and labs were drawn. The patient started with chest pain and shortness of breath earlier today and then fell from his scooter hitting his head on the wall. He developed dizziness after the fall and is still having chest pain and shortness of breath. The patient was tachycardic while in the emergency department. Initially he was afebrile, but then developed a fever. He was given Tylenol 1000 mg p.o. with some improvement of the fever. The patient denies any fevers at home or URI symptoms. White blood cell count is elevated. The patient has an indwelling Hamilton catheter and there is concern for infection with urine culture and blood cultures pending. Lactate was normal. The patient was given Rocephin 2 g IV and a total of 1.5 L normal saline solution bolus. Imaging studies as above without acute abnormalities. The patient's forgetfulness and apparent confusion did improve after the IV fluids and Tylenol, but he was still somewhat confused. The patient lives alone and I do not feel that he is safe to be discharged home given his tachycardia, fevers, and change in mental status. The patient was independently evaluated by Dr. Chambers, who agrees with my assessment and treatment plan. I spoke with the on-call hospitalist who agreed to admit the patient for further management. Please refer to their dictation for further details. The patient's care was transferred in stable condition. DIAGNOSIS: Dizziness UTI Fever Chest pain and shortness of breath Change in mental status Fall with closed head injury Past Med/Surg History Medical History BPH (benign prostatic hyperplasia) Diabetes mellitus, type [address] Glaucoma UTI (urinary tract infection) Surgical History H/O sinus surgery History of arthroscopy of left knee History of colonoscopy History of esophagogastroduodenoscopy (EGD) S/P TURP Family History Unknown No pertinent family history Social History Smoking Status: Never smoker Tobacco Type: Cigarettes Second Hand Exposure: Yes; Do You Dip or Chew Tobacco: No; Hx Alcohol Use: No Hx Substance Use: No Preferred Language: [place]an Communication Ability: Effective Color Mixer Required: No Beliefs That Will Affect Care: None marital status: / Current Living Situation: Alone Current Living Situation Comment: Son current occupational status: retired Other Information That Helps Us Care for You: No Feels Safe at Home: No Is there a partner from a previous relationship who is making you feel unsafe now?: No Any Concerns about Your Family Situation: No Would You Like to Speak to Someone About Your Situation: No Safety Concerns: Feels Safe At This Time Assistive Devices: Scooter/Electric Scooter Allergies Allergies Allergy/AdvReac Type Severity Reaction Status Date / Time amoxicillin [From Augmentin] AdvReac Intermediate Diarrhea Verified 06/23/23 03:02 clavulanic acid AdvReac Intermediate Diarrhea Verified 06/23/23 03:02 [From Augmentin] Home Meds Home Medications Medication Instructions Recorded Confirmed dorzolamide 22.3 mg-timolol 6.8 1 drp OPB QAM 02/03/20 06/23/23 mg/mL eye drops latanoprost 0.005 % eye drops 1 drp OPB 02/03/20 06/23/23 (Xalatan) brimonidine 0.2 % eye drops 1 drp OPB QAM 05/06/21 06/23/23 atorvastatin 40 mg tablet 40 mg PO QAM 10/02/21 06/23/23 metformin 500 mg tablet,extended 1,500 mg PO QAM 05/29/22 06/23/23 release 24 hr calcium carbonate 600 mg-vitamin 1 tab PO DAILY 06/23/23 06/23/23 D3 10 mcg (400 unit) tablet (Calcium 600 + D(3)) Previous Rx's Medication Instructions Recorded apixaban 5 mg tablet (Eliquis) 5 mg PO BID #60 tabs 06/02/22 finasteride 5 mg tablet 5 mg PO DAILY #90 tabs 06/26/22 tamsulosin 0.4 mg capsule 0.4 mg PO HS #90 caps 06/26/22 oxybutynin chloride 5 mg tablet 5 mg PO BID PRN bladder spasms #60 01/19/23 tabs Results & Data (ED) Vital Signs Vital Signs - 24 hr 06/22/23 19:31 06/22/23 23:00 06/22/23 23:00 Temperature 35.9 C L Temperature Source Temporal Artery Scan Pulse Rate 100 H Pulse Rate [Apical] 107 H Pulse Rate from SpO2 Sensor Pulse Rhythm [Apical] Pulse Strength [Apical] Respiratory Rate 16 32 H Respiratory Effort / Characteristics Respiratory Depth Blood Pressure 149/105 H Blood Pressure [Right Arm] Blood Pressure Mean 119 Blood Pressure Mean [Right Arm] Blood Pressure Position [Right Arm] Pulse Oximetry 97 96 97 Oxygen Delivery Method Room Air Room Air Room Air Sepsis Recent Fever Within 48 Hours No Sepsis New/Unexplained Change in Mental Status No Sepsis Action Taken by Nursing No Action Required 06/22/23 23:17 06/22/23 23:37 06/23/23 00:00 Temperature 39.5 C H Temperature Source Oral Pulse Rate 102 H 105 H Pulse Rate [Apical] 111 H Pulse Rate from SpO2 Sensor 107 H Pulse Rhythm [Apical] Regular Pulse Strength [Apical] Normal Respiratory Rate 31 H Respiratory Effort / Characteristics Respiratory Depth Blood Pressure 153/93 H Blood Pressure [Right Arm] 160/111 H Blood Pressure Mean 113 Blood Pressure Mean [Right Arm] 127 Blood Pressure Position [Right Arm] Sitting Pulse Oximetry 94 94 Oxygen Delivery Method Room Air Room Air Sepsis Recent Fever Within 48 Hours Sepsis New/Unexplained Change in Mental Status Sepsis Action Taken by Nursing 06/23/23 00:30 06/23/23 01:00 06/23/23 01:21 Temperature 38.5 C H Temperature Source Oral Pulse Rate 108 H 106 H Pulse Rate [Apical] 103 H Pulse Rate from SpO2 Sensor 108 H 106 H Pulse Rhythm [Apical] Pulse Strength [Apical] Respiratory Rate 33 H 31 H 32 H Respiratory Effort / Characteristics Non-Labored Spontaneous SOB on Exertion Respiratory Depth Normal Blood Pressure 124/91 Blood Pressure [Right Arm] Blood Pressure Mean 102 Blood Pressure Mean [Right Arm] Blood Pressure Position [Right Arm] Pulse Oximetry 93 92 93 Oxygen Delivery Method Room Air Room Air Room Air Sepsis Recent Fever Within 48 Hours Sepsis New/Unexplained Change in Mental Status Sepsis Action Taken by Nursing 06/23/23 02:00 06/23/23 02:30 06/23/23 03:00 Temperature Temperature Source Pulse Rate 102 H 101 H 101 H Pulse Rate [Apical] Pulse Rate from SpO2 Sensor 101 H 102 H 100 H Pulse Rhythm [Apical] Pulse Strength [Apical] Respiratory Rate 26 H 23 22 Respiratory Effort / Characteristics Respiratory Depth Blood Pressure 120/76 144/96 H Blood Pressure [Right Arm] Blood Pressure Mean 90 112 Blood Pressure Mean [Right Arm] Blood Pressure Position [Right Arm] Pulse Oximetry 94 91 94 Oxygen Delivery Method Room Air Room Air Room Air Sepsis Recent Fever Within 48 Hours Sepsis New/Unexplained Change in Mental Status Sepsis Action Taken by Nursing 06/23/23 03:18 Temperature Temperature Source Pulse Rate 106 H Pulse Rate [Apical] Pulse Rate from SpO2 Sensor Pulse Rhythm [Apical] Pulse Strength [Apical] Respiratory Rate Respiratory Effort / Characteristics Respiratory Depth Blood Pressure Blood Pressure [Right Arm] Blood Pressure Mean Blood Pressure Mean [Right Arm] Blood Pressure Position [Right Arm] Pulse Oximetry Oxygen Delivery Method Sepsis Recent Fever Within 48 Hours Sepsis New/Unexplained Change in Mental Status Sepsis Action Taken by Nursing Laboratory Data 06/22/23 19:46 06/23/23 07:04 Lab Results 06/22/23 06/22/23 06/22/23 Range/Units 19:40 19:46 23:20 WBC 13.68 H (4.8-10.8) K/ul RBC 5.10 (4.70-6.10) M/uL Hgb 16.6 (14.0-18.0) g/dl Hct 46.3 (42.0-52.0) % MCV 90.8 (80.0-100.0) fL MCH 32.5 (25.0-34.0) pg MCHC 35.9 (32.0-36.0) g/dL RDW Std Deviation 43.6 (36.4-46.3) fL RDW Coeff of Wendi 13.1 (11.5-14.5) % Plt Count 146 (130-400) K/uL MPV 9.6 (9.4-12.4) fL Immature Gran % (Auto) 0.6 % Neut % (Auto) 88.5 % Lymph % (Auto) 4.8 % [place] % (Auto) 5.8 % Eos % (Auto) 0.0 % Baso % (Auto) 0.3 % Neut # (Auto) 12.11 H (1.40-6.50) K/uL Lymph # (Auto) 0.65 L (1.20-3.40) K/uL [place] # (Auto) 0.80 H (0.11-0.59) K/uL Eos # (Auto) 0.00 (0.00-0.50) K/uL Baso # (Auto) 0.04 (0.00-0.20) K/uL Immature Gran # (Auto) 0.08 (0.01-0.20) K/uL PT 12.7 H (9.0-12.0) Seconds INR 1.2 H (0.9-1.1) APTT 30 (21-31) Seconds PTT Ratio 1.1 Sodium 132 L (136-145) mmol/L Potassium 3.8 (3.5-5.1) mmol/L Chloride 100 (98-107) mmol/L Carbon Dioxide 22 (21-32) mmol/L Anion Gap 10 (3-11) BUN 17 (6-23) mg/dl Creatinine 1.15 (0.6-1.4) mg/dl Est Cr Clr Drug Dosing Not Reportable Est GFR ( Amer) 75.4 ml/min Est GFR (Non-Af Amer) 65.0 ml/min BUN/Creatinine Ratio 14.8 (10-20) Glucose 159 H (70-99(Fasting)) mg/dl Lactate (0.4-2.0) mmol/L Calcium 9.6 (8.6-10.3) mg/dl Total Bilirubin 2.8 H (0.2-1.0) mg/dl AST 19 (13-39) U/L ALT 22 (7-52) U/L Alkaline Phosphatase 43 (34-104) U/L Troponin I High Sens 11.2 (0-20) pg/ml Total Protein 6.8 (6.0-8.3) gm/dl Albumin 4.5 (3.4-5.0) gm/dl Globulin 2.3 L (2.5-4.0) gm/dl Albumin/Globulin Ratio 2.0 (0.9-2) Lipase 18 (11-82) U/L SARS-CoV-2 (PCR) NEGATIVE (Negative) Influenza Type A (PCR) Negative (Neg) Influenza Type B (PCR) Negative (Neg) RSV (RT-PCR) Negative (Neg) 06/23/23 Range/Units 00:07 WBC (4.8-10.8) K/ul RBC (4.70-6.10) M/uL Hgb (14.0-18.0) g/dl Hct (42.0-52.0) % MCV (80.0-100.0) fL MCH (25.0-34.0) pg MCHC (32.0-36.0) g/dL RDW Std Deviation (36.4-46.3) fL RDW Coeff of Wendi (11.5-14.5) % Plt Count (130-400) K/uL MPV (9.4-12.4) fL Immature Gran % (Auto) % Neut % (Auto) % Lymph % (Auto) % [place] % (Auto) % Eos % (Auto) % Baso % (Auto) % Neut # (Auto) (1.40-6.50) K/uL Lymph # (Auto) (1.20-3.40) K/uL [place] # (Auto) (0.11-0.59) K/uL Eos # (Auto) (0.00-0.50) K/uL Baso # (Auto) (0.00-0.20) K/uL Immature Gran # (Auto) (0.01-0.20) K/uL PT (9.0-12.0) Seconds INR (0.9-1.1) APTT (21-31) Seconds PTT Ratio Sodium (136-145) mmol/L Potassium (3.5-5.1) mmol/L Chloride (98-107) mmol/L Carbon Dioxide (21-32) mmol/L Anion Gap (3-11) BUN (6-23) mg/dl Creatinine (0.6-1.4) mg/dl Est Cr Clr Drug Dosing Est GFR ( Amer) ml/min Est GFR (Non-Af Amer) ml/min BUN/Creatinine Ratio (10-20) Glucose (70-99(Fasting)) mg/dl Lactate 1.9 (0.4-2.0) mmol/L Calcium (8.6-10.3) mg/dl Total Bilirubin (0.2-1.0) mg/dl AST (13-39) U/L ALT (7-52) U/L Alkaline Phosphatase (34-104) U/L Troponin I High Sens (0-20) pg/ml Total Protein (6.0-8.3) gm/dl Albumin (3.4-5.0) gm/dl Globulin (2.5-4.0) gm/dl Albumin/Globulin Ratio (0.9-2) Lipase (11-82) U/L SARS-CoV-2 (PCR) (Negative) Influenza Type A (PCR) (Neg) Influenza Type B (PCR) (Neg) RSV (RT-PCR) (Neg) Administered Medications Sodium Chloride (Nss) 1,000 mls @ 100 mls/hr IV .Q10H SUZIE Stop: 07/23/23 05:02 Last Admin: 06/23/23 06:50 Dose: 100 mls/hr Documented By: PAULINA Discontinued Medications Acetaminophen (Acetaminophen 500 Mg Tab) 1,000 mg PO NOW STA Stop: 06/22/23 23:56 Last Admin: 06/23/23 00:13 Dose: 1,000 mg Documented By: ROMAINE Sodium Chloride (Nss) 500 mls @ 999 mls/hr IV .Q31M ONE Stop: 06/22/23 23:39 Last Infusion: 06/23/23 01:55 Dose: Infused Documented By: Admin: 06/23/23 00:45 Dose: 999 mls/hr Documented By: ROMAINE Sodium Chloride (Nss) 1,000 mls @ 999 mls/hr IV .Q1H1M ONE Stop: 06/23/23 01:00 Last Infusion: 06/23/23 01:13 Dose: Infused Documented By: Admin: 06/23/23 00:07 Dose: 999 mls/hr Documented By: ROMAINE Ceftriaxone Sodium (Rocephin) 2,000 mg in 50 mls @ 100 mls/hr IV NOW STA Stop: 06/23/23 03:06 Last Infusion: 06/23/23 03:28 Dose: Infused Documented By: Admin: 06/23/23 02:50 Dose: 100 mls/hr Documented By: ROMAINE Ioversol (Optiray 320 125ml) 116 ml IV ONCE ONE Stop: 06/22/23 23:33 Last Admin: 06/22/23 23:31 Dose: 116 ml Documented By: JOLENE Ondansetron HCl (Ondansetron Inj 2 Mg/Ml 2 Ml Vial) 4 mg IV NOW STA Stop: 06/22/23 23:10 Last Admin: 06/23/23 00:08 Dose: 4 mg Documented By: ROMAINE Imaging Data Radiologist's Impression: Head CT 06/22/23 21:01 Exam(s): CT HEAD Without Contrast EXAM: CT Head Without Intravenous Contrast CLINICAL HISTORY: Reason for exam: hit head riding on scooter. TECHNIQUE: Axial computed tomography images of the head/brain without intravenous contrast. CTDI is 37.12 mGy and DLP is 702.46 mGy-cm. Automated exposure control was utilized for the study. A dose lowering technique was utilized adhering to the principles of ALARA. COMPARISON: Head CT May 30, 2022. FINDINGS: No acute intracranial hemorrhage. No midline shift or mass effect. The territorial whitt-white matter differentiation is maintained throughout. Age-related cerebral volume loss. Periventricular and subcortical white matter hypoattenuation, consistent with chronic microangiopathy. The visualized orbits appear grossly unremarkable. The calvarium is intact. The visualized paranasal sinuses and mastoid air cells are grossly clear. IMPRESSION: No acute intracranial hemorrhage, midline shift, or mass effect. Electronically signed by: Sanya Merida MD 06/22/23 22:[address] 06/22/23 21:05 Exam(s): CT C SPINE EXAM: CT Cervical Spine Without Intravenous Contrast CLINICAL HISTORY: Reason for exam: fell off scooter. TECHNIQUE: Axial computed tomography images of the cervical spine without intravenous contrast. CTDI is 37.12 mGy and DLP is 234.15 mGy-cm. Automated exposure control was utilized for the study. A dose lowering technique was utilized adhering to the principles of ALARA. COMPARISON: No relevant prior studies available. FINDINGS: The vertebral body heights are maintained. The craniocervical junction is intact. The atlanto-dens interval is maintained. The dens is intact. There is no spondylolisthesis. Multilevel cervical spondylosis and degenerative disc disease. Straightening of the cervical lordosis. The unenhanced neck soft tissues are grossly unremarkable. The visualized lung apices are grossly clear. IMPRESSION: No acute fracture or subluxation of the cervical spine. Electronically signed by: Sanya Merida MD 06/22/23 22:30 PM Chest CTA 06/22/23 23:09 Exam(s): CTA CHEST IV Amt: 116 ML EXAM: CT Angiography Chest With Intravenous Contrast CLINICAL HISTORY: Reason for exam: PE. TECHNIQUE: Axial computed tomographic angiography images of the chest with intravenous contrast. Automated exposure control was utilized for the study. A dose lowering technique was utilized adhering to the principles of ALARA. MIP reconstructed images were created and reviewed. COMPARISON: No relevant prior studies available. FINDINGS: LUNGS: No focal consolidation, pleural effusion, or pneumothorax. HEART: Cardiomegaly. VASCULATURE: No acute pulmonary embolism. Atherosclerotic changes of the aorta. THYROID: Within normal limits. MEDIASTINUM + LYMPH NODES: There are no pathologically enlarged mediastinal, hilar, or axillary lymph nodes. SUPERIOR ABDOMEN: Hepatic steatosis. MUSCULOSKELETAL: Degenerative changes. IMPRESSION: No acute pulmonary embolism. Electronically signed by: Sanya Merida MD 06/23/23 00:05 AM Head CTA 06/22/23 23:09 Exam(s): CTA HEAD With Contrast IV Amt: 116 ML EXAM: CT Angiography Head With Intravenous Contrast CLINICAL HISTORY: Reason for exam: Dizziness. TECHNIQUE: Axial computed tomographic angiography images of the head with intravenous contrast. Automated exposure control was utilized for the study. A dose lowering technique was utilized adhering to the principles of ALARA. MIP reconstructed images were created and reviewed. CONTRAST: Patient received 116 ML of IV contrast COMPARISON: No relevant prior studies available. FINDINGS: The dural venous sinuses are patent. Right internal carotid artery: No acute findings. Intracranial segment is patent with no significant stenosis. No aneurysm. Right anterior cerebral artery: Unremarkable. No occlusion or significant stenosis. No aneurysm. Right middle cerebral artery: Unremarkable. No occlusion or significant stenosis. No aneurysm. Right posterior cerebral artery: Unremarkable. No occlusion or significant stenosis. No aneurysm. Right vertebral artery: Unremarkable as visualized. Left internal carotid artery: No acute findings. Intracranial segment is patent with no significant stenosis. No aneurysm. Left anterior cerebral artery: Unremarkable. No occlusion or significant stenosis. No aneurysm. Left middle cerebral artery: Unremarkable. No occlusion or significant stenosis. No aneurysm. Left posterior cerebral artery: Unremarkable. No occlusion or significant stenosis. No aneurysm. Left vertebral artery: Unremarkable as visualized. Basilar artery: Unremarkable. No occlusion or significant stenosis. No aneurysm. IMPRESSION: Negative CT angiogram of the head. Electronically signed by: Faviola Guevara MD 06/23/23 01:24 AM Hip/Pelvis X-Ray 06/22/23 23:09 XR hip RT 2V w pelvis CLINICAL HISTORY: Trauma. Right hip pain. COMPARISON STUDY: None. FINDINGS: Hamilton catheter within the bladder. There is contrast within the urinary system from the recent CT examination. No fracture or dislocation within the pelvis or hips. IMPRESSION: No fracture or dislocation within the pelvis or hips. ACT 112: Negative or not required by law. Electronically signed by: Froilan Diaz M.D. 06/23/2023 7:28 AM Neck CTA 06/22/23 23:09 Exam(s): CTA NECK With Contrast IV Amt: 116 ML EXAM: CT Angiography Neck With Intravenous Contrast CLINICAL HISTORY: Reason for exam: Dizziness. TECHNIQUE: Routine carotid CT angiography protocol was performed with intravenous contrast. NASCET criteria using the distal ICAs for comparison were used for evaluation of stenoses. Automated exposure control was utilized for the study. A dose lowering technique was utilized adhering to the principles of ALARA. MIP reconstructed images were created and reviewed. CONTRAST: Patient received 116 ML of IV contrast COMPARISON: None. FINDINGS: VASCULATURE: Right common carotid artery: Unremarkable. No occlusion or significant stenosis. No dissection. Right internal carotid artery: Unremarkable. Extracranial segment is patent with no occlusion or significant stenosis. No dissection. Right external carotid artery: Unremarkable. No occlusion. Right vertebral artery: Unremarkable. No occlusion or significant stenosis. No dissection. Left common carotid artery: Unremarkable. No occlusion or significant stenosis. No dissection. Left internal carotid artery: Unremarkable. Extracranial segment is patent with no occlusion or significant stenosis. No dissection. Left external carotid artery: Unremarkable. No occlusion. Left vertebral artery: Unremarkable. No occlusion or significant stenosis. No dissection. NECK: Bones/joints: Moderate to advanced disc degeneration at C3-4 through C6- 7. Multiple dental caries with periapical lucency about tooth #12 concern for periapical abscess. Recommend dental consult. No acute fracture. Soft tissues: Prominent cervical lymph nodes. Lung apices: Clear. CAROTID STENOSIS REFERENCE USING NASCET CRITERIA: % ICA stenosis = (1 - narrowest ICA diameter/diameter of distal cervical ICA) x 100. Mild - <50% stenosis. Moderate - 50-69% stenosis. Severe - 70-94% stenosis. Near occlusion - 95-99% stenosis.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
[2023-06-22] MEDS ORDERED: ONDANSETRON INJ 2 MG/ML 2 ML VIAL IV STA (23:09)
[2023-06-22] MEDS ORDERED: SODIUM CHLORIDE 0.9% 500 ML IV ONE (23:09)
[2023-06-22] MEDS ORDERED: OPTIRAY 320 125ml IV ONE (23:32)
[2023-06-22 23:38] LABS: INR 1.2 (0.9-1.1); Partial Thromboplastin Ratio 1.1; Partial Thromboplastin Time 30 Seconds (21-31); Prothrombin Time 12.7 Seconds (9.0-12.0)
[2023-06-22 23:49] LABS: Troponin I High Sensitivity 11.2 pg/ml (0-20)
[2023-06-22] MEDS ORDERED: ACETAMINOPHEN 500 MG TAB PO STA (23:55)
[2023-06-23] MEDS ORDERED: SODIUM CHLORIDE 0.9% 1,000 ML IV ONE
--- NOTE | 2023-06-23 00:06 | CT Scan Report ---
Exam(s): CTA CHEST IV Amt: 116 ML EXAM: CT Angiography Chest With Intravenous Contrast CLINICAL HISTORY: Reason for exam: PE. TECHNIQUE: Axial computed tomographic angiography images of the chest with intravenous contrast. Automated exposure control was utilized for the study. A dose lowering technique was utilized adhering to the principles of ALARA. MIP reconstructed images were created and reviewed. COMPARISON: No relevant prior studies available. FINDINGS: LUNGS: No focal consolidation, pleural effusion, or pneumothorax. HEART: Cardiomegaly. VASCULATURE: No acute pulmonary embolism. Atherosclerotic changes of the aorta. THYROID: Within normal limits. MEDIASTINUM + LYMPH NODES: There are no pathologically enlarged mediastinal, hilar, or axillary lymph nodes. SUPERIOR ABDOMEN: Hepatic steatosis. MUSCULOSKELETAL: Degenerative changes. IMPRESSION: No acute pulmonary embolism. Electronically signed by: Sanya Merida MD 06/23/23 00:05 AM
[2023-06-23 00:09] LABS: Influenza A virus by PCR Negative (Neg); Influenza B virus by PCR Negative (Neg); RSV by PCR Negative (Neg); SARS CoV2 RNA(COVID-19) Ceph NEGATIVE (Negative)
[2023-06-23 00:13] LABS: Lipase 18 U/L (11-82)
[2023-06-23 00:23] LABS: Appearance Urine Turbid (Clear); Bacteria Urine Automated 2+ (Negative); Bilirubin Urine Negative (Negative); Blood Urine 2+ (Negative); Color Urine Dark Yellow; Glucose Urine UA Trace (Negative); Ketones Urine Trace (Negative); Leukocyte Esterase Urine 3+ (Negative); Nitrite Urine Positive (Negative); Specific Gravity Urine 1.025 (1.000-1.030); Urobilinogen Urine Negative (Negative); WBC Urine Automated >30 /hpf (0-5); pH Urine >= 9.0 (4.5-7.5)
[2023-06-23 00:26] LABS: Protein Urine 3+ (Negative)
[2023-06-23 00:49] LABS: Amorphous Sediment Urine Present (None Prsent); RBC Urine Automated 0-4 /hpf (0-4)
--- NOTE | 2023-06-23 01:24 | CT Scan Report ---
Exam(s): CTA HEAD With Contrast IV Amt: 116 ML EXAM: CT Angiography Head With Intravenous Contrast CLINICAL HISTORY: Reason for exam: Dizziness. TECHNIQUE: Axial computed tomographic angiography images of the head with intravenous contrast. Automated exposure control was utilized for the study. A dose lowering technique was utilized adhering to the principles of ALARA. MIP reconstructed images were created and reviewed. CONTRAST: Patient received 116 ML of IV contrast COMPARISON: No relevant prior studies available. FINDINGS: The dural venous sinuses are patent. Right internal carotid artery: No acute findings. Intracranial segment is patent with no significant stenosis. No aneurysm. Right anterior cerebral artery: Unremarkable. No occlusion or significant stenosis. No aneurysm. Right middle cerebral artery: Unremarkable. No occlusion or significant stenosis. No aneurysm. Right posterior cerebral artery: Unremarkable. No occlusion or significant stenosis. No aneurysm. Right vertebral artery: Unremarkable as visualized. Left internal carotid artery: No acute findings. Intracranial segment is patent with no significant stenosis. No aneurysm. Left anterior cerebral artery: Unremarkable. No occlusion or significant stenosis. No aneurysm. Left middle cerebral artery: Unremarkable. No occlusion or significant stenosis. No aneurysm. Left posterior cerebral artery: Unremarkable. No occlusion or significant stenosis. No aneurysm. Left vertebral artery: Unremarkable as visualized. Basilar artery: Unremarkable. No occlusion or significant stenosis. No aneurysm. IMPRESSION: Negative CT angiogram of the head. Electronically signed by: Faviola Guevara MD 06/23/23 01:24 AM
--- NOTE | 2023-06-23 01:27 | CT Scan Report ---
Exam(s): CTA NECK With Contrast IV Amt: 116 ML EXAM: CT Angiography Neck With Intravenous Contrast CLINICAL HISTORY: Reason for exam: Dizziness. TECHNIQUE: Routine carotid CT angiography protocol was performed with intravenous contrast. NASCET criteria using the distal ICAs for comparison were used for evaluation of stenoses. Automated exposure control was utilized for the study. A dose lowering technique was utilized adhering to the principles of ALARA. MIP reconstructed images were created and reviewed. CONTRAST: Patient received 116 ML of IV contrast COMPARISON: None. FINDINGS: VASCULATURE: Right common carotid artery: Unremarkable. No occlusion or significant stenosis. No dissection. Right internal carotid artery: Unremarkable. Extracranial segment is patent with no occlusion or significant stenosis. No dissection. Right external carotid artery: Unremarkable. No occlusion. Right vertebral artery: Unremarkable. No occlusion or significant stenosis. No dissection. Left common carotid artery: Unremarkable. No occlusion or significant stenosis. No dissection. Left internal carotid artery: Unremarkable. Extracranial segment is patent with no occlusion or significant stenosis. No dissection. Left external carotid artery: Unremarkable. No occlusion. Left vertebral artery: Unremarkable. No occlusion or significant stenosis. No dissection. NECK: Bones/joints: Moderate to advanced disc degeneration at C3-4 through C6- 7. Multiple dental caries with periapical lucency about tooth #12 concern for periapical abscess. Recommend dental consult. No acute fracture. Soft tissues: Prominent cervical lymph nodes. Lung apices: Clear. CAROTID STENOSIS REFERENCE USING NASCET CRITERIA: % ICA stenosis = (1 - narrowest ICA diameter/diameter of distal cervical ICA) x 100. Mild - <50% stenosis. Moderate - 50-69% stenosis. Severe - 70-94% stenosis. Near occlusion - 95-99% stenosis. Occluded - 100% stenosis. IMPRESSION: Negative CTA neck. Electronically signed by: Faviola Guevara MD 06/23/23 01:26 AM
[2023-06-23] MEDS ORDERED: cefTRIAXone SODIUM 2,000 MG/50 ML BAG IV STA (02:37)
--- NOTE | 2023-06-23 03:39 | Emergency Department Note ---
ED Visit Note I was consulted by the Advanced Practice Provider. I personally made/approved the management plan and take responsibility for the patient management. I performed a substantive portion of the visit. This includes the aspects of: -History/Physical/Personally seeing the patient -MDM -I independently interpreted the following studies: Trauma CT scans .
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
[2023-06-23] MEDS ORDERED: CARBOHYDRATES FOR HYPOGLYCEMIA PO PRN (05:03)
[2023-06-23] MEDS ORDERED: GLUCOSE 10 TAB/TUBE PO PRN (05:03)
[2023-06-23] MEDS ORDERED: NITROGLYCERIN SL 0.4 MG/TAB TAB SL PRN (05:03)
[2023-06-23] MEDS ORDERED: POLYETHYLENE (MIRALAX) 17 GM PACK PO PRN (05:03)
[2023-06-23] MEDS ORDERED: GLUCAGON FOR INJ 1 MG VIAL SQ PRN (05:03)
[2023-06-23] MEDS ORDERED: GLUCOSE 40% GEL 15 GM TUBE PO PRN (05:03)
[2023-06-23] MEDS ORDERED: DEXTROSE 50% 50 ML SYRINGE IV PRN (05:03)
[2023-06-23] MEDS: SODIUM CHLORIDE 0.9% 1,000 ML IV SCH ×2 (06:50→17:34)
--- NOTE | 2023-06-23 07:12 | Electrocardiogram Report ---
Test Reason : Blood Pressure : / mmHG Vent. Rate : 096 BPM Atrial Rate : 096 BPM P-R Int : 132 ms QRS Dur : 076 ms QT Int : 342 ms P-R-T Axes : 029 046 043 degrees QTc Int : 432 ms Normal sinus rhythm Nonspecific ST abnormality Abnormal ECG When compared with ECG of 30-MAY-2022 00:55, No significant change was found Confirmed by Sulaiman Lackey ([id number]) on 06/23/2023 7:11:54 AM Referred By: REFERRED SELF Confirmed By:Casey Lackey
--- NOTE | 2023-06-23 07:30 | XRay Report ---
XR hip RT 2V w pelvis CLINICAL HISTORY: Trauma. Right hip pain. COMPARISON STUDY: None. FINDINGS: Hamilton catheter within the bladder. There is contrast within the urinary system from the rec ent CT examination. No fracture or dislocation within the pelvis or hips. IMPRESSION: No fracture or dislocation within the pelvis or hips. ACT 112: Negative or not required by law. Electronically signed by: Froilan Diaz M.D. 06/23/2023 7:28 AM
[2023-06-23 07:41] LABS: BUN Creatinine Ratio 14.7 (10-20); Calcium 8.9 mg/dl (8.6-10.3); Creatinine Clr Calc Pharmacy 76.2 ml/min; Est GFR (African American) 80.4 ml/min; Est GFR (Non-African American) 69.4 ml/min; Magnesium 1.4 mg/dl (1.7-2.4); Potassium 3.7 mmol/L (3.5-5.1)
[2023-06-23 07:47] LABS: Basophils # (auto) 0.04 K/uL (0.00-0.20); Basophils % (auto) 0.3 %; Hematocrit (blood only) 43.6 % (42.0-52.0); Hemoglobin 15.4 g/dl (14.0-18.0); Immature Granulocytes # (auto) 0.08 K/uL (0.01-0.20); Immature Granulocytes % (auto) 0.6 %; Lymphocytes % (auto) 2.4 %; Mean Corpuscular Hemoglobin 32.4 pg (25.0-34.0); Mean Corpuscular Hgb Conc 35.3 g/dL (32.0-36.0); Mean Corpuscular Volume 91.6 fL (80.0-100.0); Mean Platelet Volume 9.3 fL (9.4-12.4); Monocytes # (auto) 0.57 K/uL (0.11-0.59); Monocytes % (auto) 4.6 %; Neutrophils # (auto) 11.34 K/uL (1.40-6.50); Neutrophils % (auto) 92.1 %; Platelet Count 107 K/uL (130-400); RBC Morphology Unremarkable; RDW Coefficient of Variation 13.2 % (11.5-14.5); RDW Standard Deviation 44.4 fL (36.4-46.3); Red Blood Count 4.76 M/uL (4.70-6.10); White Blood Count 12.33 K/ul (4.8-10.8)
[2023-06-23 07:59] LABS: Troponin I High Sensitivity 34.3 pg/ml (0-20)
[2023-06-23 08:32] LABS: Estimated Average Glucose 123 mg/dl; Hemoglobin A1C 5.9 % (4.5-5.6)
[2023-06-23] MEDS: MAGNESIUM SULFATE / D5W 1 GM/100 ML BAG IV SCH ×2 (08:49→12:29)
[2023-06-23] MEDS: CEFEPIME 2,000 MG in SYRINGE 0 ML IV SCH ×2 (08:50→21:23)
[2023-06-23] MEDS: ATORVASTATIN 40 MG TAB PO SCH (08:52)
[2023-06-23] MEDS: CALCIUM 600MG + VIT D 400 IU TAB PO SCH (08:53)
[2023-06-23] MEDS: APIXABAN 5 MG TABLET PO SCH ×2 (08:53→21:24)
[2023-06-23] MEDS: oxyBUTYnin chloride 5 MG TAB PO PRN (08:53)
[2023-06-23] MEDS: FINASTERIDE 5 MG TAB PO SCH (08:53)
[2023-06-23] MEDS: DORZOLAMIDE/TIMOLOL 22.3/6.8MG/ML 10 ML BTL OPB SCH ×2 (08:55→21:25)
[2023-06-23] MEDS: BRIMONIDINE TARTRATE 0.2% 5ML OPB SCH (08:55)
[2023-06-23] MEDS: INSULIN ASPART PER UNIT CHARGE SC SCH ×4 (11:09→21:24)
--- NOTE | 2023-06-23 12:02 | Hospitalist Progress Note ---
Date of Service June 23, 2023 Assessment & Plan (1) Dizziness: Plan: 67-year-old male past med history significant for type 2 diabetes, hyperlipidemia, lower leg DVT, hepatic steatosis, BPH, overactive bladder, chronic indwelling Hamilton catheter, osteoarthritis both knees, venous stasis dermatitis of both lower extremities, glaucoma both eyes, history of small lymphocytic lymphoma, mentally challenged ambulates with walker and also on scooter comes because of dizziness and also some shortness of breath and chest pain when taking deep breaths. Dizziness After falling from scooter CT head, CTA head and neck unremarkable Has been feeling little better remains drowsy No dizziness at rest UTI Has chronic indwelling Hamilton catheter-likely catheter induced UTI Had temp spike in the ER UA was suggestive for infection which may contribute to dizziness Received Rocephin in ER and continued with cefepime on the floor for broader coverage Awaiting cultures Chest pain and shortness of breath Chest pain more on taking deep breath CTA chest unremarkable Second set of troponin is mildly elevated at 34.3-will repeat the next 1 EKG showed nonspecific T wave change Echo of the heart showed-tachycardia noted, mild LV hypertrophy with normal LV wall motion and EF of 60 to 65%, grade 1 diastolic dysfunction and no significant valvular pathology Hyponatremia Sodium 132 On fluids Sodium has went up to 130 Type 2 diabetes Hold metformin Sliding scale Follow blood sugars and HbA1c levels History of BPH S/p TURP Chronic indwelling Hamilton catheter On Flomax and Proscar History of DVT On Eliquis Hyperlipidemia On statin History of glaucoma Continue home eyedrops History of small lymphocytic lymphoma Under observation by heme-onc DVT prophylaxis On Eliquis Disposition med/tele Full code Admission and Anticipated Discharge Date Admission Date: June 23, 2023 Subjective 06/23/2023 The patient was seen and examined in medical telemetry unit He has been weak and lethargic and feels a little better since admission Denies any significant symptoms Review of Systems Review of Systems: All systems reviewed and are unremarkable except as noted below Physical Exam Physical Exam: Lying in bed comfortably Constitutional: well developed, well nourished, + ill appearing and + obese Eyes: PERRL, conjunctivae normal, anicteric sclerae ENMT: external ear and nose normal, oropharynx normal Neck: trachea midline, no thyromegaly Respiratory: no respiratory distress Auscultation: + diminished lung sounds; no crackles Cardiovascular: Rate/Rhythm: regular rate, regular rhythm and + tachycardic Heart Sounds: normal S1 and normal S2; no murmur Extremities: + edema (Trace edema bilateral) Gastrointestinal (Abdomen): Inspection/Auscultation: normal bowel sounds; abdomen not distended Percussion/Palpation: abdomen soft; abdomen nontender Musculoskeletal: No acute arthritis involving any joint Neurologic: Alert, awake and oriented x 3. No focal sensory or motor deficit appreciated Genitourinary: no testicular masses, no penis abnormality Results & Data Results & Data Vital Signs (Past 12 Hours) Vital Signs Temp Pulse Pulse Pulse Resp BP BP 06/23/23 11:35 39.1 C H 101 H 18 139/79 06/23/23 08:38 37.6 C H 105 H 18 06/23/23 06:26 113 H 06/23/23 05:03 38.9 C H 115 H 20 06/23/23 04:01 114 H 33 H 160/82 H 06/23/23 03:30 38.6 C H 06/23/23 03:18 106 H 06/23/23 03:00 101 H 22 144/96 H 06/23/23 02:30 101 H 23 06/23/23 02:00 102 H 26 H 120/76 06/23/23 01:21 38.5 C H 103 H 32 H 06/23/23 01:00 106 H 31 H 124/91 06/23/23 00:30 108 H 33 H 06/23/23 00:00 105 H 31 H 153/93 H BP Pulse Ox O2 Del Method 06/23/23 11:35 90 Room Air 06/23/23 08:38 119/66 91 Room Air 06/23/23 06:26 06/23/23 05:03 134/75 92 Room Air 06/23/23 04:01 93 Room Air 06/23/23 03:30 06/23/23 03:18 06/23/23 03:00 94 Room Air 06/23/23 02:30 91 Room Air 06/23/23 02:00 94 Room Air 06/23/23 01:21 93 Room Air 06/23/23 01:00 92 Room Air 06/23/23 00:30 93 Room Air 06/23/23 00:00 94 Room Air Laboratory Results Short CBC 06/22/23 06/23/23 Range/Units 19:46 07:04 WBC 13.68 H 12.33 H (4.8-10.8) K/ul Hgb 16.6 15.4 (14.0-18.0) g/dl Hct 46.3 43.6 (42.0-52.0) % Plt Count 146 107 L (130-400) K/uL BMP 06/22/23 06/23/23 19:46 07:04 Sodium 132 L 134 L Potassium 3.8 3.7 Chloride 100 103 Carbon Dioxide 22 22 BUN 17 16 Creatinine 1.15 1.09 Glucose 159 H 159 H Calcium 9.6 8.9 Liver Function 06/22/23 Range/Units 19:46 Total Bilirubin 2.8 H (0.2-1.0) mg/dl AST 19 (13-39) U/L ALT 22 (7-52) U/L Alkaline Phosphatase 43 (34-104) U/L Albumin 4.5 (3.4-5.0) gm/dl Urine 06/23/23 Range/Units Unknown Urine Color Dark Yellow Urine Appearance Turbid A (Clear) Urine pH >= 9.0 H (4.5-7.5) Ur Specific [place] 1.025 (1.000-1.030) Urine Protein 3+ H (Negative) Urine Glucose (UA) Trace H (Negative) Medications Administered Current Inpatient Medications Acetaminophen (Acetaminophen 325 Mg Tab) 650 mg PO Q4H PRN PRN Reason: Pain or Fever Stop: 07/23/23 05:02 Apixaban (Apixaban 5 Mg Tablet) 5 mg PO BID [facility] Stop: 07/23/23 08:59 Last Admin: 06/23/23 08:53 Dose: 5 mg Atorvastatin Calcium (Atorvastatin 40 Mg Tab) 40 mg PO QAM [facility] Stop: 07/23/23 08:59 Last Admin: 06/23/23 08:52 Dose: 40 mg Brimonidine Tartrate (Brimonidine Tartrate 0.2% 5ml) 1 drops OPB [facility] Stop: 07/23/23 08:59 Last Admin: 06/23/23 08:55 Dose: 1 drops Calcium/Vitamin D (Calcium 600mg + Vit D 400 Iu Tab) 1 tab PO DAILY [facility] Stop: 07/23/23 08:59 Last Admin: 06/23/23 08:53 Dose: 1 tab Dextrose (Dextrose 50% 50 Ml Syringe) 25 - 50 ml IV UD PRN; Protocol PRN Reason: Hypoglycemia Protocol Stop: 07/23/23 05:02 Dorzolamide/Timolol (Dorzolamide/Timolol 22.3/6.8mg/Ml 10 Ml Btl) 1 drops OPB QAM [facility] Stop: 07/23/23 08:59 Last Admin: 06/23/23 08:55 Dose: 1 drops Finasteride (Finasteride 5 Mg Tab) 5 mg PO DAILY [facility] Stop: 07/23/23 08:59 Last Admin: 06/23/23 08:53 Dose: 5 mg Glucagon (Glucagon For Inj 1 Mg Vial) 1 mg SQ UD PRN; Protocol PRN Reason: Hypoglycemia Protocol Stop: 07/23/23 05:02 Glucose (Glucose 10 Tab/Tube) 4 - 8 tab PO UD PRN; Protocol PRN Reason: Hypoglycemia Treatment Stop: 07/23/23 05:02 Glucose (Glucose 40% Gel 15 Gm Tube) 15 - 30 gm PO UD PRN; Protocol PRN Reason: Hypoglycemia Protocol Stop: 07/23/23 05:02 Sodium Chloride (Nss) 1,000 mls @ 100 mls/hr IV .Q10H [facility] Stop: 07/23/23 05:02 Last Admin: 06/23/23 06:50 Dose: 100 mls/hr Cefepime HCl 2,000 mg/ Syringe 20 mls @ 5 mls/min IV Q12H [facility]; Protocol Stop: 07/03/23 07:59 Last Admin: 06/23/23 08:50 Dose: 5 mls/min Magnesium Sulfate/Dextrose (Magnesium Sulfate / D5w) 1 gm in 100 mls @ 50 mls/hr IV Q2H [facility] Stop: 06/23/23 11:59 Last Admin: 06/23/23 08:49 Dose: 50 mls/hr Insulin Aspart (Insulin Aspart Per Unit Charge) 0 units SC ACHS [facility] Stop: 07/23/23 07:29 Last Admin: 06/23/23 11:09 Dose: Not Given Latanoprost (Latanoprost 0.005% Op Soln 2.5 Ml Btl) 1 drops OPB HS [facility] Stop: 07/23/23 20:59 Miscellaneous (Carbohydrates For Hypoglycemia ) 15 - 30 gm PO UD PRN PRN Reason: Hypoglycemia Protocol Stop: 07/23/23 05:02 Nitroglycerin (Nitroglycerin Sl 0.4 Mg/Tab Tab) 0.4 mg SL Q5M PRN PRN Reason: Chest Pain Stop: 07/23/23 05:02 Oxybutynin Chloride (Oxybutynin Chloride 5 Mg Tab) 5 mg PO BID PRN PRN Reason: bladder spasms Stop: 07/23/23 05:02 Last Admin: 06/23/23 08:53 Dose: 5 mg Polyethylene Glycol (Polyethylene (Miralax) 17 Gm Pack) 17 gm PO DAILY PRN PRN Reason: Constipation Stop: 07/23/23 05:02 Tamsulosin HCl (Tamsulosin Hcl 0.4 Mg Cap) 0.4 mg PO HS [facility] Stop: 07/23/23 20:59
[2023-06-23] MEDS: ACETAMINOPHEN 325 MG TAB PO PRN ×3 (12:29→21:23)
[2023-06-23] MEDS: LATANOPROST 0.005% OP SOLN 2.5 ML BTL OPB SCH (21:27)
[2023-06-23] MEDS: TAMSULOSIN HCL 0.4 MG CAP PO SCH (21:28)
[2023-06-24] MEDS: SODIUM CHLORIDE 0.9% 1,000 ML IV SCH ×2 (03:19→18:12)
[2023-06-24] MEDS: ACETAMINOPHEN 325 MG TAB PO PRN ×2 (06:09→21:24)
[2023-06-24 07:32] LABS: BUN Creatinine Ratio 15.9 (10-20); Calcium 8.7 mg/dl (8.6-10.3); Creatinine Clr Calc Pharmacy 74.1 ml/min; Est GFR (Non-African American) 66.4 ml/min; Magnesium 2.1 mg/dl (1.7-2.4); Potassium 4.1 mmol/L (3.5-5.1)
[2023-06-24] MEDS: APIXABAN 5 MG TABLET PO SCH ×2 (07:58→20:54)
[2023-06-24] MEDS: FINASTERIDE 5 MG TAB PO SCH (07:58)
[2023-06-24] MEDS: CALCIUM 600MG + VIT D 400 IU TAB PO SCH (07:58)
[2023-06-24] MEDS: oxyBUTYnin chloride 5 MG TAB PO PRN (07:58)
[2023-06-24] MEDS: BRIMONIDINE TARTRATE 0.2% 5ML OPB SCH (07:59)
[2023-06-24] MEDS: ATORVASTATIN 40 MG TAB PO SCH (07:59)
[2023-06-24 08:13] LABS: Basophils # (auto) 0.01 K/uL (0.00-0.20); Basophils % (auto) 0.1 %; Hematocrit (blood only) 40.6 % (42.0-52.0); Hemoglobin 14.3 g/dl (14.0-18.0); Immature Granulocytes # (auto) 0.12 K/uL (0.01-0.20); Immature Granulocytes % (auto) 1.3 %; Lymphocytes # (auto) 0.45 K/uL (1.20-3.40); Lymphocytes % (auto) 4.9 %; Mean Corpuscular Hemoglobin 32.6 pg (25.0-34.0); Mean Corpuscular Hgb Conc 35.2 g/dL (32.0-36.0); Mean Corpuscular Volume 92.5 fL (80.0-100.0); Mean Platelet Volume 10.2 fL (9.4-12.4); Monocytes # (auto) 0.52 K/uL (0.11-0.59); Monocytes % (auto) 5.7 %; Neutrophils # (auto) 8.01 K/uL (1.40-6.50); Platelet Count 98 K/uL (130-400); Platelet Estimate Decreased (Normal); RBC Morphology Unremarkable; RDW Coefficient of Variation 13.9 % (11.5-14.5); RDW Standard Deviation 47.5 fL (36.4-46.3); Red Blood Count 4.39 M/uL (4.70-6.10); White Blood Count 9.11 K/ul (4.8-10.8)
[2023-06-24] MEDS: CEFEPIME 2,000 MG in SYRINGE 0 ML IV SCH ×2 (09:13→20:54)
[2023-06-24] MEDS: INSULIN ASPART PER UNIT CHARGE SC SCH ×4 (10:09→20:56)
--- NOTE | 2023-06-24 11:17 | Hospitalist Progress Note ---
Date of Service June 24, 2023 Assessment & Plan (1) Dizziness: Plan: 67-year-old male past med history significant for type 2 diabetes, hyperlipidemia, lower leg DVT, hepatic steatosis, BPH, overactive bladder, chronic indwelling Hamilton catheter, osteoarthritis both knees, venous stasis dermatitis of both lower extremities, glaucoma both eyes, history of small lymphocytic lymphoma, mentally challenged ambulates with walker and also on scooter comes because of dizziness and also some shortness of breath and chest pain when taking deep breaths. Dizziness After falling from scooter CT head, CTA head and neck unremarkable Has been feeling little better remains drowsy No dizziness at rest Remains free from any symptoms Will get PT and OT evaluation UTI Has chronic indwelling Hamilton catheter-likely catheter induced UTI Had temp spike in the ER UA was suggestive for infection which may contribute to dizziness Received Rocephin in ER and continued with cefepime on the floor for broader coverage Urine culture is growing gram-negative bacilli, further identification and sensitivity are pending He has been feeling much better Chest pain and shortness of breath Chest pain more on taking deep breath CTA chest unremarkable Second set of troponin is mildly elevated at 34.3-will repeat the next 1 EKG showed nonspecific T wave change Echo of the heart showed-tachycardia noted, mild LV hypertrophy with normal LV wall motion and EF of 60 to 65%, grade 1 diastolic dysfunction and no significant valvular pathology No more chest pain and/or palpitation Hyponatremia Sodium 132 On fluids Sodium has went up to 130 Sodium level has been normalized Type 2 diabetes Hold metformin Sliding scale Follow blood sugars and HbA1c levels History of BPH S/p TURP Chronic indwelling Hamilton catheter On Flomax and Proscar History of DVT On Eliquis Hyperlipidemia On statin History of glaucoma Continue home eyedrops History of small lymphocytic lymphoma Under observation by heme-onc DVT prophylaxis On Eliquis Disposition med/tele Full code Likely discharge tomorrow Admission and Anticipated Discharge Date Admission Date: June 23, 2023 Subjective 06/23/2023 The patient was seen and examined in medical telemetry unit He has been weak and lethargic and feels a little better since admission Denies any significant symptoms 06/24/2023 The patient was seen and examined in medical telemetry unit He has been feeling much better and conversing normally Denies any significant symptoms except some wheezing at the end of deep inspiration Denies any fever and or chills and does not have any urinary symptoms Review of Systems Review of Systems: All systems reviewed and are unremarkable except as noted below Physical Exam Physical Exam: Lying in bed comfortably Constitutional: well developed, well nourished, + ill appearing and + obese Eyes: PERRL, conjunctivae normal, anicteric sclerae ENMT: external ear and nose normal, oropharynx normal Neck: trachea midline, no thyromegaly Respiratory: no respiratory distress Auscultation: + diminished lung sounds; no crackles Cardiovascular: Rate/Rhythm: regular rate, regular rhythm and + tachycardic Heart Sounds: normal S1 and normal S2; no murmur Extremities: + edema (Trace edema bilateral) Gastrointestinal (Abdomen): Inspection/Auscultation: normal bowel sounds; abdomen not distended Percussion/Palpation: abdomen soft; abdomen nontender Musculoskeletal: No acute arthritis involving any of the joint Neurologic: normal touch/pain/proprioception and moves all extremities; no focal motor deficits Genitourinary: no testicular masses, no penis abnormality Results & Data Results & Data Vital Signs (Past 12 Hours) Vital Signs Temp Pulse Resp BP BP Pulse Ox O2 Del Method 06/24/23 08:12 36.9 C 86 16 103/67 96 Room Air 06/24/23 05:03 36.8 C 89 18 116/67 96 Room Air 06/24/23 03:43 37.8 C H 92 H 16 105/66 92 Room Air 06/23/23 23:34 37.5 C 87 16 101/63 93 Room Air Laboratory Results Short CBC 06/24/23 Range/Units 06:03 WBC 9.11 (4.8-10.8) K/ul Hgb 14.3 (14.0-18.0) g/dl Hct 40.6 L (42.0-52.0) % Plt Count 98 L (130-400) K/uL BMP 06/24/23 06:03 Sodium 135 L Potassium 4.1 Chloride 104 Carbon Dioxide 25 BUN 18 Creatinine 1.13 Glucose 207 H Calcium 8.7 Medications Administered Current Inpatient Medications Acetaminophen (Acetaminophen 325 Mg Tab) 650 mg PO Q4H PRN PRN Reason: Pain or Fever Stop: 07/23/23 05:02 Last Admin: 06/24/23 06:09 Dose: 650 mg Apixaban (Apixaban 5 Mg Tablet) 5 mg PO BID [facility] Stop: 07/23/23 08:59 Last Admin: 06/24/23 07:58 Dose: 5 mg Atorvastatin Calcium (Atorvastatin 40 Mg Tab) 40 mg PO QAM [facility] Stop: 07/23/23 08:59 Last Admin: 06/24/23 07:59 Dose: 40 mg Brimonidine Tartrate (Brimonidine Tartrate 0.2% 5ml) 1 drops OPB QAM [facility] Stop: 07/23/23 08:59 Last Admin: 06/24/23 07:59 Dose: 1 drops Calcium/Vitamin D (Calcium 600mg + Vit D 400 Iu Tab) 1 tab PO DAILY [facility] Stop: 07/23/23 08:59 Last Admin: 06/24/23 07:58 Dose: 1 tab Dextrose (Dextrose 50% 50 Ml Syringe) 25 - 50 ml IV UD PRN; Protocol PRN Reason: Hypoglycemia Protocol Stop: 07/23/23 05:02 Dorzolamide/Timolol (Dorzolamide/Timolol 22.3/6.8mg/Ml 10 Ml Btl) 1 drops OPB QAM [facility] Stop: 07/23/23 08:59 Last Admin: 06/23/23 21:25 Dose: 1 drops Finasteride (Finasteride 5 Mg Tab) 5 mg PO DAILY [facility] Stop: 07/23/23 08:59 Last Admin: 06/24/23 07:58 Dose: 5 mg Glucagon (Glucagon For Inj 1 Mg Vial) 1 mg SQ UD PRN; Protocol PRN Reason: Hypoglycemia Protocol Stop: 07/23/23 05:02 Glucose (Glucose 10 Tab/Tube) 4 - 8 tab PO UD PRN; Protocol PRN Reason: Hypoglycemia Treatment Stop: 07/23/23 05:02 Glucose (Glucose 40% Gel 15 Gm Tube) 15 - 30 gm PO UD PRN; Protocol PRN Reason: Hypoglycemia Protocol Stop: 07/23/23 05:02 Sodium Chloride (Nss) 1,000 mls @ 100 mls/hr IV .Q10H [facility] Stop: 07/23/23 05:02 Last Admin: 06/24/23 03:19 Dose: 100 mls/hr Cefepime HCl 2,000 mg/ Syringe 20 mls @ 5 mls/min IV Q12H [facility]; Protocol Stop: 07/03/23 07:59 Last Admin: 06/24/23 09:13 Dose: 5 mls/min Insulin Aspart (Insulin Aspart Per Unit Charge) 0 units SC ACHS [facility] Stop: 07/23/23 07:29 Last Admin: 06/24/23 10:09 Dose: 3 units Latanoprost (Latanoprost 0.005% Op Soln 2.5 Ml Btl) 1 drops OPB HS [facility] Stop: 07/23/23 20:59 Last Admin: 06/23/23 21:27 Dose: 1 drops Miscellaneous (Carbohydrates For Hypoglycemia ) 15 - 30 gm PO UD PRN PRN Reason: Hypoglycemia Protocol Stop: 07/23/23 05:02 Nitroglycerin (Nitroglycerin Sl 0.4 Mg/Tab Tab) 0.4 mg SL Q5M PRN PRN Reason: Chest Pain Stop: 07/23/23 05:02 Oxybutynin Chloride (Oxybutynin Chloride 5 Mg Tab) 5 mg PO BID PRN PRN Reason: bladder spasms Stop: 07/23/23 05:02 Last Admin: 06/24/23 07:58 Dose: 5 mg Polyethylene Glycol (Polyethylene (Miralax) 17 Gm Pack) 17 gm PO DAILY PRN PRN Reason: Constipation Stop: 07/23/23 05:02 Tamsulosin HCl (Tamsulosin Hcl 0.4 Mg Cap) 0.4 mg PO [facility] Stop: 07/23/23 20:59 Last Admin: 06/23/23 21:28 Dose: 0.4 mg
[2023-06-24] MEDS: TAMSULOSIN HCL 0.4 MG CAP PO SCH (20:55)
[2023-06-24] MEDS: LATANOPROST 0.005% OP SOLN 2.5 ML BTL OPB SCH (22:17)
[2023-06-25] MEDS: CEFEPIME 2,000 MG in SYRINGE 0 ML IV SCH (07:25)
[2023-06-25] MEDS: APIXABAN 5 MG TABLET PO SCH ×2 (08:04→21:21)
[2023-06-25] MEDS: ATORVASTATIN 40 MG TAB PO SCH (08:05)
[2023-06-25] MEDS: CALCIUM 600MG + VIT D 400 IU TAB PO SCH (08:05)
[2023-06-25] MEDS: oxyBUTYnin chloride 5 MG TAB PO PRN (08:05)
[2023-06-25] MEDS: DORZOLAMIDE/TIMOLOL 22.3/6.8MG/ML 10 ML BTL OPB SCH (08:05)
[2023-06-25] MEDS: FINASTERIDE 5 MG TAB PO SCH (08:05)
[2023-06-25] MEDS: BRIMONIDINE TARTRATE 0.2% 5ML OPB SCH (08:06)
[2023-06-25] MEDS: INSULIN ASPART PER UNIT CHARGE SC SCH ×4 (09:49→21:22)
--- NOTE | 2023-06-25 14:28 | Hospitalist Progress Note ---
Date of Service June 25, 2023 Assessment & Plan (1) Dizziness: Plan: 67-year-old male past med history significant for type 2 diabetes, hyperlipidemia, lower leg DVT, hepatic steatosis, BPH, overactive bladder, chronic indwelling Hamilton catheter, osteoarthritis both knees, venous stasis dermatitis of both lower extremities, glaucoma both eyes, history of small lymphocytic lymphoma, mentally challenged ambulates with walker and also on scooter comes because of dizziness and also some shortness of breath and chest pain when taking deep breaths. Dizziness After falling from scooter CT head, CTA head and neck unremarkable Has been feeling little better remains drowsy No dizziness at rest Remains free from any symptoms No more dizziness- Awaiting PT and OT evaluation UTI Has chronic indwelling Hamilton catheter-likely catheter induced UTI Had temp spike in the ER UA was suggestive for infection which may contribute to dizziness Received Rocephin in ER and continued with cefepime on the floor for broader coverage Urine culture is growing gram-negative bacilli, further identification and sensitivity are pending He has been feeling much better Urine culture is growing Providencia stuartii and Gardnlalike bacilli Antibiotic changed to cefdinir to finish the course Chest pain and shortness of breath Chest pain more on taking deep breath CTA chest unremarkable Second set of troponin is mildly elevated at 34.3-will repeat the next 1 EKG showed nonspecific T wave change Echo of the heart showed-tachycardia noted, mild LV hypertrophy with normal LV wall motion and EF of 60 to 65%, grade 1 diastolic dysfunction and no significant valvular pathology No more chest pain and/or palpitation Likely discharge in a day or 2 Hyponatremia Sodium 132 On fluids Sodium has went up to 130 Sodium level has been normalized Type 2 diabetes Hold metformin Sliding scale Follow blood sugars and HbA1c levels History of BPH S/p TURP Chronic indwelling Hamilton catheter On Flomax and Proscar History of DVT On Eliquis Hyperlipidemia On statin History of glaucoma Continue home eyedrops History of small lymphocytic lymphoma Under observation by heme-onc DVT prophylaxis On Eliquis Disposition med/tele Full code Likely discharge tomorrow Admission and Anticipated Discharge Date Admission Date: June 23, 2023 Subjective 06/23/2023 The patient was seen and examined in medical telemetry unit He has been weak and lethargic and feels a little better since admission Denies any significant symptoms 06/24/2023 The patient was seen and examined in medical telemetry unit He has been feeling much better and conversing normally Denies any significant symptoms except some wheezing at the end of deep inspiration Denies any fever and or chills and does not have any urinary symptoms 06/25/2023 The patient was seen and examined in the medical telemetry unit He has been feeling much better His complaint is that his Hamilton is leaking-that will be replaced today He will have PT OT evaluation prior to discharge Review of Systems Review of Systems: All systems reviewed and are unremarkable except as noted below Physical Exam Physical Exam: Lying in bed comfortably Constitutional: well developed, well nourished, + ill appearing and + obese Eyes: PERRL, conjunctivae normal, anicteric sclerae ENMT: external ear and nose normal, oropharynx normal Neck: trachea midline, no thyromegaly Respiratory: no respiratory distress Auscultation: + diminished lung sounds; no crackles Cardiovascular: Rate/Rhythm: regular rate, regular rhythm and + tachycardic Heart Sounds: normal S1 and normal S2; no murmur Extremities: + edema (Trace edema bilateral) Gastrointestinal (Abdomen): Inspection/Auscultation: normal bowel sounds; abdomen not distended Percussion/Palpation: abdomen soft; abdomen nontender Neurologic: normal touch/pain/proprioception and moves all extremities; no focal motor deficits Genitourinary: no testicular masses, no penis abnormality Results & Data Results & Data Vital Signs (Past 12 Hours) Vital Signs Temp Pulse Pulse Pulse Resp BP Pulse Ox 06/25/23 11:45 70 30 H 130/72 95 06/25/23 08:14 36.5 C 79 34 H 132/84 92 06/25/23 07:45 06/25/23 07:45 85 06/25/23 03:08 36.4 C L 74 18 110/64 95 O2 Del Method 06/25/23 11:45 Room Air 06/25/23 08:14 Room Air 06/25/23 07:45 Room Air 06/25/23 07:45 06/25/23 03:08 Room Air Medications Administered Current Inpatient Medications Acetaminophen (Acetaminophen 325 Mg Tab) 650 mg PO Q4H PRN PRN Reason: Pain or Fever Stop: 07/23/23 05:02 Last Admin: 06/24/23 21:24 Dose: 650 mg Apixaban (Apixaban 5 Mg Tablet) 5 mg PO BID [facility] Stop: 07/23/23 08:59 Last Admin: 06/25/23 08:04 Dose: 5 mg Atorvastatin Calcium (Atorvastatin 40 Mg Tab) 40 mg PO QAM [facility] Stop: 07/23/23 08:59 Last Admin: 06/25/23 08:05 Dose: 40 mg Brimonidine Tartrate (Brimonidine Tartrate 0.2% 5ml) 1 drops OPB QAM [facility] Stop: 07/23/23 08:59 Last Admin: 06/25/23 08:06 Dose: 1 drops Calcium/Vitamin D (Calcium 600mg + Vit D 400 Iu Tab) 1 tab PO DAILY [facility] Stop: 07/23/23 08:59 Last Admin: 06/25/23 08:05 Dose: 1 tab Cefdinir (Cefdinir 300 Mg Cap) 300 mg PO BID [facility] Stop: 07/02/23 23:59 Dextrose (Dextrose 50% 50 Ml Syringe) 25 - 50 ml IV UD PRN; Protocol PRN Reason: Hypoglycemia Protocol Stop: 07/23/23 05:02 Dorzolamide/Timolol (Dorzolamide/Timolol 22.3/6.8mg/Ml 10 Ml Btl) 1 drops OPB QAM [facility] Stop: 07/23/23 08:59 Last Admin: 06/25/23 08:05 Dose: 1 drops Finasteride (Finasteride 5 Mg Tab) 5 mg PO DAILY [facility] Stop: 07/23/23 08:59 Last Admin: 06/25/23 08:05 Dose: 5 mg Glucagon (Glucagon For Inj 1 Mg Vial) 1 mg SQ UD PRN; Protocol PRN Reason: Hypoglycemia Protocol Stop: 07/23/23 05:02 Glucose (Glucose 10 Tab/Tube) 4 - 8 tab PO UD PRN; Protocol PRN Reason: Hypoglycemia Treatment Stop: 07/23/23 05:02 Glucose (Glucose 40% Gel 15 Gm Tube) 15 - 30 gm PO UD PRN; Protocol PRN Reason: Hypoglycemia Protocol Stop: 07/23/23 05:02 Insulin Aspart (Insulin Aspart Per Unit Charge) 0 units SC ACHS [facility] Stop: 07/23/23 07:29 Last Admin: 06/25/23 13:00 Dose: 6 units Latanoprost (Latanoprost 0.005% Op Soln 2.5 Ml Btl) 1 drops OPB HS [facility] Stop: 07/23/23 20:59 Last Admin: 06/24/23 22:17 Dose: 1 drops Miscellaneous (Carbohydrates For Hypoglycemia ) 15 - 30 gm PO UD PRN PRN Reason: Hypoglycemia Protocol Stop: 07/23/23 05:02 Nitroglycerin (Nitroglycerin Sl 0.4 Mg/Tab Tab) 0.4 mg SL Q5M PRN PRN Reason: Chest Pain Stop: 07/23/23 05:02 Oxybutynin Chloride (Oxybutynin Chloride 5 Mg Tab) 5 mg PO BID PRN PRN Reason: bladder spasms Stop: 07/23/23 05:02 Last Admin: 06/25/23 08:05 Dose: 5 mg Polyethylene Glycol (Polyethylene (Miralax) 17 Gm Pack) 17 gm PO DAILY PRN PRN Reason: Constipation Stop: 07/23/23 05:02 Tamsulosin HCl (Tamsulosin Hcl 0.4 Mg Cap) 0.4 mg PO [facility] Stop: 07/23/23 20:59 Last Admin: 06/24/23 20:55 Dose: 0.4 mg
--- NOTE | 2023-06-25 19:02 | Electrocardiogram Report ---
Test Reason : Blood Pressure : / mmHG Vent. Rate : 079 BPM Atrial Rate : 079 BPM P-R Int : 164 ms QRS Dur : 082 ms QT Int : 360 ms P-R-T Axes : 026 040 039 degrees QTc Int : 412 ms Normal sinus rhythm Normal ECG When compared with ECG of 22-JUN-2023 19:41, No significant change was found Confirmed by Be Adhikari ([id number]) on 06/25/2023 7:01:41 PM Referred By: REFERRED SELF Confirmed By:Be Adhikari
[2023-06-25] MEDS: TAMSULOSIN HCL 0.4 MG CAP PO SCH (21:20)
[2023-06-25] MEDS: LATANOPROST 0.005% OP SOLN 2.5 ML BTL OPB SCH (21:20)
[2023-06-25] MEDS: CEFDINIR 300 MG CAP PO SCH (21:22)
[2023-06-26] MEDS: CEFDINIR 300 MG CAP PO SCH ×2 (08:27→20:48)
[2023-06-26] MEDS: oxyBUTYnin chloride 5 MG TAB PO PRN (08:27)
[2023-06-26] MEDS: FINASTERIDE 5 MG TAB PO SCH (08:27)
[2023-06-26] MEDS: BRIMONIDINE TARTRATE 0.2% 5ML OPB SCH (08:28)
[2023-06-26] MEDS: DORZOLAMIDE/TIMOLOL 22.3/6.8MG/ML 10 ML BTL OPB SCH (08:28)
[2023-06-26] MEDS: APIXABAN 5 MG TABLET PO SCH ×2 (08:28→20:47)
[2023-06-26] MEDS: CALCIUM 600MG + VIT D 400 IU TAB PO SCH (08:28)
[2023-06-26] MEDS: ATORVASTATIN 40 MG TAB PO SCH (08:28)
[2023-06-26] MEDS: INSULIN ASPART PER UNIT CHARGE SC SCH ×4 (09:20→20:48)
[2023-06-26] MEDS ORDERED: METOPROLOL TARTRATE 1 MG/ML VIAL IV STA (10:30)
[2023-06-26] MEDS: METOPROLOL TARTRATE 25 MG TAB PO SCH ×2 (11:21→20:46)
--- NOTE | 2023-06-26 11:57 | Electrocardiogram Report ---
Test Reason : Blood Pressure : / mmHG Vent. Rate : 142 BPM Atrial Rate : 159 BPM P-R Int : 000 ms QRS Dur : 092 ms QT Int : 272 ms P-R-T Axes : 000 028 -89 degrees QTc Int : 418 ms Atrial fibrillation with rapid ventricular response Diffuse Minor Nonspecific T wave abnormality Abnormal ECG When compared with ECG of 25-JUN-2023 11:29, Atrial fibrillation has replaced Sinus rhythm Vent. rate has increased BY 63 BPM Nonspecific T wave abnormality now present Confirmed by Carlos Alberto Pereira ([id number]) on 06/26/2023 11:57:20 AM Referred By: REFERRED SELF Confirmed By:Carlos Alberto Pereira
--- NOTE | 2023-06-26 14:10 | Hospitalist Progress Note ---
Date of Service June 26, 2023 Assessment & Plan (1) Dizziness: Plan: 67-year-old male past med history significant for type 2 diabetes, hyperlipidemia, lower leg DVT, hepatic steatosis, BPH, overactive bladder, chronic indwelling Hamilton catheter, osteoarthritis both knees, venous stasis dermatitis of both lower extremities, glaucoma both eyes, history of small lymphocytic lymphoma, mentally challenged ambulates with walker and also on scooter comes because of dizziness and also some shortness of breath and chest pain when taking deep breaths. Atrial fibrillation with rapid ventricular rate Noted to have developed this morning EKG confirmed the diagnosis Received 5 mg of IV in Lopressor and 25 mg oral Lopressor Will continue 25 mg Lopressor twice daily Like you to continue with the 50 of metoprolol succinate on discharge Heart rate has been improved Dizziness After falling from scooter CT head, CTA head and neck unremarkable Has been feeling little better remains drowsy No dizziness at rest Remains free from any symptoms No more dizziness- Awaiting PT and OT evaluation PT recommended rehab-awaiting rehab UTI Has chronic indwelling Hamilton catheter-likely catheter induced UTI Had temp spike in the ER UA was suggestive for infection which may contribute to dizziness Received Rocephin in ER and continued with cefepime on the floor for broader coverage Urine culture is growing gram-negative bacilli, further identification and sensitivity are pending He has been feeling much better Urine culture is growing Providencia stuartii and Gardnlalike bacilli Antibiotic changed to cefdinir to finish the course No urinary symptoms Chest pain and shortness of breath Chest pain more on taking deep breath CTA chest unremarkable Second set of troponin is mildly elevated at 34.3-will repeat the next 1 EKG showed nonspecific T wave change Echo of the heart showed-tachycardia noted, mild LV hypertrophy with normal LV wall motion and EF of 60 to 65%, grade 1 diastolic dysfunction and no significant valvular pathology No more chest pain and/or palpitation Likely discharge in a day or 2 Hyponatremia Sodium 132 On fluids Sodium has went up to 130 Sodium level has been normalized Type 2 diabetes Hold metformin Sliding scale Follow blood sugars and HbA1c levels History of BPH S/p TURP Chronic indwelling Hamilton catheter On Flomax and Proscar History of DVT On Eliquis Hyperlipidemia On statin History of glaucoma Continue home eyedrops History of small lymphocytic lymphoma Under observation by heme-onc DVT prophylaxis On Eliquis Disposition med/tele Full code Likely discharge on acceptance to a facility Admission and Anticipated Discharge Date Admission Date: June 23, 2023 Subjective 06/23/2023 The patient was seen and examined in medical telemetry unit He has been weak and lethargic and feels a little better since admission Denies any significant symptoms 06/24/2023 The patient was seen and examined in medical telemetry unit He has been feeling much better and conversing normally Denies any significant symptoms except some wheezing at the end of deep inspiration Denies any fever and or chills and does not have any urinary symptoms 06/25/2023 The patient was seen and examined in the medical telemetry unit He has been feeling much better His complaint is that his Hamilton is leaking-that will be replaced today He will have PT OT evaluation prior to discharge 06/26/2023 The patient was seen and examined in medical telemetry unit He was noted to have A-fib with RVR this morning with palpitation and shortness of breath Remained hemodynamically stable Denies any other significant symptoms Review of Systems Review of Systems: All systems reviewed and are unremarkable except as noted below Physical Exam Physical Exam: Lying in bed comfortably Constitutional: well developed, well nourished, + ill appearing and + obese Eyes: PERRL, conjunctivae normal, anicteric sclerae ENMT: external ear and nose normal, oropharynx normal Neck: trachea midline, no thyromegaly Respiratory: no respiratory distress Auscultation: + diminished lung sounds; no crackles Cardiovascular: Rate/Rhythm: + tachycardic and + irregularly irregular Heart Sounds: normal S1 and normal S2; no murmur Extremities: + edema (Trace edema bilateral) Gastrointestinal (Abdomen): Inspection/Auscultation: normal bowel sounds; abdomen not distended Percussion/Palpation: abdomen soft; abdomen nontender Neurologic: normal touch/pain/proprioception and moves all extremities; no focal motor deficits Genitourinary: no testicular masses, no penis abnormality Results & Data Results & Data Vital Signs (Past 12 Hours) Vital Signs Temp Pulse Pulse Pulse Resp BP BP 06/26/23 11:34 36.7 C 122 H 18 107/71 06/26/23 11:00 118 H 107/71 06/26/23 10:45 152 H 127/65 06/26/23 10:04 37.2 C 154 H 22 124/73 06/26/23 10:03 155 H 06/26/23 07:42 36.5 C 69 18 143/75 H 06/26/23 07:19 72 06/26/23 03:56 36.7 C 73 18 133/84 Pulse Ox O2 Del Method 06/26/23 11:34 96 Room Air 06/26/23 11:00 06/26/23 10:45 06/26/23 10:04 96 Room Air 06/26/23 10:03 06/26/23 07:42 97 Room Air 06/26/23 07:19 06/26/23 03:56 95 Room Air Medications Administered Current Inpatient Medications Acetaminophen (Acetaminophen 325 Mg Tab) 650 mg PO Q4H PRN PRN Reason: Pain or Fever Stop: 07/23/23 05:02 Last Admin: 06/24/23 21:24 Dose: 650 mg Apixaban (Apixaban 5 Mg Tablet) 5 mg PO BID SUZIE Stop: 07/23/23 08:59 Last Admin: 06/26/23 08:28 Dose: 5 mg Atorvastatin Calcium (Atorvastatin 40 Mg Tab) 40 mg PO QAM [facility] Stop: 07/23/23 08:59 Last Admin: 06/26/23 08:28 Dose: 40 mg Brimonidine Tartrate (Brimonidine Tartrate 0.2% 5ml) 1 drops OPB QAM [facility] Stop: 07/23/23 08:59 Last Admin: 06/26/23 08:28 Dose: 1 drops Calcium/Vitamin D (Calcium 600mg + Vit D 400 Iu Tab) 1 tab PO DAILY SUZIE Stop: 07/23/23 08:59 Last Admin: 06/26/23 08:28 Dose: 1 tab Cefdinir (Cefdinir 300 Mg Cap) 300 mg PO BID SUZIE Stop: 07/02/23 23:59 Last Admin: 06/26/23 08:27 Dose: 300 mg Dextrose (Dextrose 50% 50 Ml Syringe) 25 - 50 ml IV UD PRN; Protocol PRN Reason: Hypoglycemia Protocol Stop: 07/23/23 05:02 Dorzolamide/Timolol (Dorzolamide/Timolol 22.3/6.8mg/Ml 10 Ml Btl) 1 drops OPB QAM [facility] Stop: 07/23/23 08:59 Last Admin: 06/26/23 08:28 Dose: 1 drops Finasteride (Finasteride 5 Mg Tab) 5 mg PO DAILY [facility] Stop: 07/23/23 08:59 Last Admin: 06/26/23 08:27 Dose: 5 mg Glucagon (Glucagon For Inj 1 Mg Vial) 1 mg SQ UD PRN; Protocol PRN Reason: Hypoglycemia Protocol Stop: 07/23/23 05:02 Glucose (Glucose 10 Tab/Tube) 4 - 8 tab PO UD PRN; Protocol PRN Reason: Hypoglycemia Treatment Stop: 07/23/23 05:02 Glucose (Glucose 40% Gel 15 Gm Tube) 15 - 30 gm PO UD PRN; Protocol PRN Reason: Hypoglycemia Protocol Stop: 07/23/23 05:02 Insulin Aspart (Insulin Aspart Per Unit Charge) 0 units SC ACHS [facility] Stop: 07/23/23 07:29 Last Admin: 06/26/23 13:24 Dose: 7 units Latanoprost (Latanoprost 0.005% Op Soln 2.5 Ml Btl) 1 drops OPB HS [facility] Stop: 07/23/23 20:59 Last Admin: 06/25/23 21:20 Dose: 1 drops Metoprolol Tartrate (Metoprolol Tartrate 25 Mg Tab) 25 mg PO BID [facility] Stop: 07/26/23 10:44 Last Admin: 06/26/23 11:21 Dose: 25 mg Miscellaneous (Carbohydrates For Hypoglycemia ) 15 - 30 gm PO UD PRN PRN Reason: Hypoglycemia Protocol Stop: 07/23/23 05:02 Nitroglycerin (Nitroglycerin Sl 0.4 Mg/Tab Tab) 0.4 mg SL Q5M PRN PRN Reason: Chest Pain Stop: 07/23/23 05:02 Oxybutynin Chloride (Oxybutynin Chloride 5 Mg Tab) 5 mg PO BID PRN PRN Reason: bladder spasms Stop: 07/23/23 05:02 Last Admin: 06/26/23 08:27 Dose: 5 mg Polyethylene Glycol (Polyethylene (Miralax) 17 Gm Pack) 17 gm PO DAILY PRN PRN Reason: Constipation Stop: 07/23/23 05:02 Tamsulosin HCl (Tamsulosin Hcl 0.4 Mg Cap) 0.4 mg PO HS [facility] Stop: 07/23/23 20:59 Last Admin: 06/25/23 21:20 Dose: 0.4 mg
[2023-06-26] MEDS: NYSTATIN SUSP 500,000 U/5 ML UDC PO SCH ×2 (17:20→20:46)
[2023-06-26] MEDS: METOPROLOL TARTRATE 1 MG/ML VIAL IV SCH ×2 (17:20→17:57)
[2023-06-26] MEDS: TAMSULOSIN HCL 0.4 MG CAP PO SCH (20:45)
[2023-06-26] MEDS: LATANOPROST 0.005% OP SOLN 2.5 ML BTL OPB SCH (20:46)
[2023-06-27] MEDS: METOPROLOL TARTRATE 1 MG/ML VIAL IV SCH ×2 (00:12→05:17)
[2023-06-27] MEDS ORDERED: METOPROLOL TARTRATE 1 MG/ML VIAL IV PRN (08:13)
[2023-06-27] MEDS: CALCIUM 600MG + VIT D 400 IU TAB PO SCH (08:34)
[2023-06-27] MEDS: CEFDINIR 300 MG CAP PO SCH (08:34)
[2023-06-27] MEDS: oxyBUTYnin chloride 5 MG TAB PO PRN (08:35)
[2023-06-27] MEDS: FINASTERIDE 5 MG TAB PO SCH (08:35)
[2023-06-27] MEDS: ATORVASTATIN 40 MG TAB PO SCH (08:35)
[2023-06-27] MEDS: NYSTATIN SUSP 500,000 U/5 ML UDC PO SCH ×2 (08:35→13:00)
[2023-06-27] MEDS: BRIMONIDINE TARTRATE 0.2% 5ML OPB SCH (08:35)
[2023-06-27] MEDS: APIXABAN 5 MG TABLET PO SCH (08:35)
[2023-06-27] MEDS: DORZOLAMIDE/TIMOLOL 22.3/6.8MG/ML 10 ML BTL OPB SCH (08:36)
[2023-06-27] MEDS ORDERED: METOPROLOL TARTRATE 25 MG TAB PO SCH (09:00)
[2023-06-27] MEDS: INSULIN ASPART PER UNIT CHARGE SC SCH ×2 (09:32→13:01)
[2023-06-27] MEDS ORDERED: AMMONIUM LACTATE 12% LOTION 225 GM BTL EXT PRN (11:30)
[2023-06-27] MEDS ORDERED: BENZOCAINE/MENTHOL 18 LOZ/1 BOX MT PRN (11:32)
--- NOTE | 2023-06-27 13:56 | Discharge Summary ---
Date of Service June 27, 2023 Admission HPI Per Admitting Provider 67-year-old male past med history significant for type 2 diabetes, hyperlipidemia, lower leg DVT, hepatic steatosis, BPH, overactive bladder, chronic indwelling Hamilton catheter, osteoarthritis both knees, venous stasis dermatitis of both lower extremities, glaucoma both eyes, history of small lymphocytic lymphoma, mentally challenged ambulates with walker and also on scooter comes because of dizziness and also some shortness of breath and chest pain when taking deep breaths. Patient states she was riding scooter and trying to park when he hit the wall and he fell down and needed assistance to get up. Since then having lot of dizziness. Which prompted him to come to the ER. He is also having ongoing chest pain and shortness of breath going for some time and the chest pain is more when taking deep breaths. Denies any cough. No fevers. Has some headache. No blurred visions. No runny nose or sore throat. Appetite is okay. No nausea. No abdominal pain. Normal bowel movements. In the ER he had a temp spike. And UA was positive. Past medical history. As mentioned above Past surgical history. Cystoscopy. Left knee ligament surgery. TURP. Social history. No smoking. No alcohol currently. No drug use. Admission Exam Per Admitting Provider General- Not in distress Head- atraumatic Eyes- PERRL, EOMI, anicteric ENT- oropharynx clear Neck- supple, no JVD. Lungs- clear to auscultation no wheezing or crackles. Heart- regular rhythm; no murmur, no gallop. Abdomen- normal bowel sounds, soft, nontender, no distension. Extremities- no pretibial edema, Chronic skin changes seen. Neuro- alert, oriented PERRL, no facial palsy; no dysarthria; moves extremities. Principal Diagnosis A-fib with RVR Dizziness Catheter associated UTI Discharge Exam Physical Exam: Lying in bed comfortably Constitutional: well developed, well nourished, + obese Eyes: PERRL, conjunctivae normal, anicteric sclerae ENMT: external ear and nose normal, oropharynx normal Neck: trachea midline, no thyromegaly Respiratory: no respiratory distress Auscultation: + diminished lung sounds; no crackles Cardiovascular: Rate/Rhythm: + irregularly irregular Heart Sounds: normal S1 and normal S2; no murmur Extremities: + edema (Trace edema bilateral) Gastrointestinal (Abdomen): Inspection/Auscultation: normal bowel sounds; abdomen not distended Percussion/Palpation: abdomen soft; abdomen nontender Neurologic: normal touch/pain/proprioception and moves all extremities; no focal motor deficits Genitourinary: no testicular masses, no penis abnormality Discharge Data Allergies Allergy/AdvReac Type Severity Reaction Status Date / Time amoxicillin [From Augmentin] AdvReac Intermediate Diarrhea Verified 06/23/23 03:02 clavulanic acid AdvReac Intermediate Diarrhea Verified 06/23/23 03:02 [From Augmentin] Consultations 06/23/23 02:52 ED Decision to Admit Stat Ordered Studies 06/22/23 21:01 CT head/brain wo con Stat 06/22/23 21:05 CT cervical spine wo con Stat 06/22/23 23:09 CT angio chest PE protocol Stat CTA head w con [CT angio head w con] Stat CTA neck with con [CT angio neck with con] Stat Hospital Course (1) Dizziness: Per Prior attending w/ Addendum: 67-year-old male past med history significant for type 2 diabetes, hyperlipid emia, lower leg DVT, hepatic steatosis, BPH, overactive bladder, chronic indwelling Hamilton catheter, osteoarthritis both knees, venous stasis dermatitis of both lower extremities, glaucoma both eyes, history of small lymphocytic lymphoma, mentally challenged ambulates with walker and also on scooter comes because of dizziness and also some shortness of breath and chest pain when taking deep breaths. Atrial fibrillation with rapid ventricular rate Noted to have developed this morning EKG confirmed the diagnosis Received 5 mg of IV in Lopressor and 25 mg oral Lopressor Will continue 25 mg Lopressor twice daily Like you to continue with the 50 of metoprolol succinate on discharge Heart rate has been improved Dizziness After falling from scooter CT head, CTA head and neck unremarkable Has been feeling little better remains drowsy No dizziness at rest Remains free from any symptoms No more dizziness- Awaiting PT and OT evaluation PT recommended rehab-awaiting rehab UTI Has chronic indwelling Hamilton catheter-likely catheter induced UTI Had temp spike in the ER UA was suggestive for infection which may contribute to dizziness Received Rocephin in ER and continued with cefepime on the floor for broader coverage Urine culture is growing gram-negative bacilli, further identification and sensitivity are pending He has been feeling much better Urine culture is growing Providencia stuartii and Gardnlalike bacilli Antibiotic changed to cefdinir to finish the course No urinary symptoms Chest pain and shortness of breath Chest pain more on taking deep breath CTA chest unremarkable Second set of troponin is mildly elevated at 34.3-will repeat the next 1 EKG showed nonspecific T wave change Echo of the heart showed-tachycardia noted, mild LV hypertrophy with normal LV wall motion and EF of 60 to 65%, grade 1 diastolic dysfunction and no significant valvular pathology No more chest pain and/or palpitation Likely discharge in a day or 2 Hyponatremia Sodium 132 On fluids Sodium has went up to 130 Sodium level has been normalized Type 2 diabetes Hold metformin Sliding scale Follow blood sugars and HbA1c levels History of BPH S/p TURP Chronic indwelling Hamilton catheter On Flomax and Proscar History of DVT On Eliquis Hyperlipidemia On statin History of glaucoma Continue home eyedrops History of small lymphocytic lymphoma Under observation by heme-onc DVT prophylaxis On Eliquis Disposition med/tele Full code Likely discharge on acceptance to a facility Addendum: Patient was seen at bedside. Patient was lying in bed, hemodynamically stable, on room air, reports feeling better. Would like to get discharged today. Heart rate under control, metoprolol tartrate dose has been increased to 37.5 mg twice daily, to be transition to 75 mg daily metoprolol succinate upon discharge. Denies dizziness, patient to complete antibiotic course for his UTI. Denies any chest pain or shortness of breath, reports improving strength. He is being discharged with following instruction at the point of discharge: Follow-up with your primary care physician within a week time and likely you will need labs CBC/CMP/magnesium/phosphorus. For your atrial fibrillation, metoprolol has been added. Follow up with cardiology as OP in a month time. Continue with the physical therapy at rehab. For your UTI, you will be discharged on antibiotic to complete the course. Take your medications as prescribed. Please make sure that you are able to get your medications today by calling your pharmacy before you leave the hospital so that your treatment continuity is not broken. [facility] Attestation I certify that this patient is under my care and that I, or a physicians physicians assistant working with me, had a face to-face encounter that meets the [facility] [id number] encounter requirements with this patient. The encounter with the patient was in whole, or in part, for the following medical condition, which is the primary reason for home health care (list medical condition): I certify that, based on my findings, the following services are medically necessary home health services: My clinical findings support the need for the above services because: Further, I certify that my clinical findings support that this patient is homebound (i.e. absences from home require considerable and taxing effort and are for medical reasons or zoroastrianism services or infrequently or of short duration when for other reasons) because: Certification for Home Health Services: Based on the above findings, I certify that this patient is confined to the home and needs intermittent custodial care, physical therapy and/or speech therapy or continues to need occupational therapy. The patient is under my care, and I have initiated the establishment of the plan of care. This patient will be followed by a physician who will periodically review the plan of care. Total Time Total Time Spent Total Time Spent (In Minutes): 45 Discharge Plan Discharge Items Patient Disposition: Transfer Custodial Fac Reason For Visit: DIZZINESS, CHEST PAIN, UTI Discharge Diagnosis: A-fib with RVR Dizziness Catheter associated UTI Condition on Discharge: Good Activity: As commented below Activity Comment: Continue with physical therapy at rehab Non-emergency contact: Primary Care Provider Call non-emergency contact if: you have any medication questions, your symptoms worsen and your temperature is above 101.5 Follow-up/Referrals: Casper Miramontes MD [Primary Care Provider] - Diet: Carb Consistent or DM2 and Heart Healthy Addtl Attending Provider Instructions: Follow-up with your primary care physician within a week time and likely you will need labs CBC/CMP/magnesium/phosphorus. For your atrial fibrillation, metoprolol has been added. Follow up with cardiology as OP in a month time. Continue with the physical therapy at rehab. For your UTI, you will be discharged on antibiotic to complete the course. Take your medications as prescribed. Please make sure that you are able to get your medications today by calling your pharmacy before you leave the hospital so that your treatment continuity is not broken. Pending Studies at Discharge: Yes Stand-Alone Forms: [employer] Skilled Items Patient informed of condition?: Yes DNR: No Discharge Level of Care: Skilled Communicable Disease: No Discharge Prognosis: Stable Lines: None Urinary Catheter: Yes Medications and DC Order Prescriptions: New cefdinir 300 mg Capsule 300 mg PO BID 5 Days Qty: 10 0RF nystatin 100,000 unit/mL Suspension 5 ml PO QID 5 Days Qty: 100 0RF Sore Throat (benzocaine-menth) 6-10 mg Lozenge 1 bina MT Q8H PRN (Reason: sore mouth) 7 Days Qty: 18 0RF metoprolol succinate 50 mg tablet extended release 24 hr 75 mg PO DAILY Qty: 45 0RF Probiotic 3 billion cell capsule 3,000 mmu cells PO DAILY 7 Days Qty: 7 0RF Rx Instructions: administer with a meal Continued finasteride 5 mg tablet 5 mg PO DAILY Qty: 90 0RF tamsulosin 0.4 mg capsule 0.4 mg PO HS Qty: 90 0RF oxybutynin chloride 5 mg tablet 5 mg PO BID PRN (Reason: bladder spasms) Qty: 60 5RF latanoprost [Xalatan] 0.005 % drops 1 drp OPB HS dorzolamide-timolol 22.3-6.8 mg/mL drops 1 drp OPB QAM metformin 500 mg tablet extended release 24 hr 1,500 mg PO QAM Eliquis 5 mg Tablet 5 mg PO BID Qty: 60 0RF brimonidine 0.2 % drops 1 drp OPB QAM atorvastatin 40 mg tablet 40 mg PO QAM calcium carbonate-vitamin D3 [Calcium 600 + D(3)] 600 mg-10 mcg (400 unit) Tablet 1 tab PO DAILY Discharge Orders: Discharge Order (Routine); Ordered 06/27/23 Ordered By: Miguel Obregon Admission Data Admit Date/Time: 06/23/23 03:30 Attending Provider: Miguel Obregon Admit Provider: Mark Johnson Primary Care Provider: Casper Miramontes Other Providers: Mark Johnson
== END 2023-06-27 14:28 | DRG 699 ==
LOC: ED 19:29 → SUATTDRO 06-23 03:30 → 2N 06-23 03:30